=== PATIENT | female | born 1985 | race Caucasian/White ===

== ENCOUNTER → 2018-10-10 18:53 | Outpatient (CLI) | payer MEDICARE, MEDICAID, SELFPAY ==
[2016-12-23 06:13] VITALS: BMI 31.2
[2018-10-10 19:29] LABS: Vitamin D,25 Hydroxy 24.4 ng/mL (29.95-100.01)
--- OUTSIDE RECORDS SUMMARY | 2018-12-06 10:03 | XMS RPT_ITS ---
:1985 Author Organization OHIP Care Team Providers Name Role Phone AL-ALI, FIRAS Admitting Unavailable AL-ALI, FIRAS Attending Unavailable Tomas Ricketts Attending Unavailable Surya Loco Primary Care Unavailable Tomas Ricketts Referring Unavailable DR ARTURO SALOMON Admitting Unavailable AIME, DR ARTURO Borjas Attending Unavailable SURYA LOCO Referring Unavailable DR ARTURO SALOMON Primary Care Unavailable SURYA LOCO Consulting Unavailable PROVIDER, UNKNOWN Consulting Unavailable PROVIDER, UNKNOWN Consulting Unavailable PROVIDER, UNKNOWN Consulting Unavailable ELIZABETH ATKINS SUMMER Admitting Unavailable ELIZABETH ATKINS SUMMER Attending Unavailable ELIZABETH ATKINS Primary Care Unavailable SURYA LOCO Consulting Unavailable PROVIDER, UNKNOWN Consulting Unavailable PROVIDER, UNKNOWN Consulting Unavailable PROVIDER, UNKNOWN Consulting Unavailable AL-ALI, FIRAS Admitting Unavailable AL-ALI, FIRAS Attending Unavailable SURYA LOCO Primary Care Unavailable PROBLEMS PROBLEMS DATE TYPE CONDITION / CODE ATTENDING STATUS SOURCE 10/11/2018 Unknown E55.9 - Vitamin D Jamarcus Active [place] deficiency, [facility] unspecified / Hospital E55.9(ICD-10) Repository 11/16/2017 Active Cerebral AL-ALI, FIRAS Active [facility] aneurysm, Other [place] nonruptured / Repository I67.1(ICD-10) 11/16/2017 Admitting Unknown / AL-ALI, FIRAS Active [facility] diagnosis UNK(Unknown) Health System Repository PROCEDURES PROCEDURES No Procedure Records FoundRESULTS RESULTS VITAMIN D,25 HYDROXY Collected: 10/10/2018 Status: F Source: [facility] 5:00 PM [facility] REPOSITORY TYPE CODE TESTS RESULT OUT OF REFERENCE UNITS RANGE LAB L506.1000 29.95-100.01 ng/mL Low Vitamin D 24.4 25-OH Result Comment: Vitamin D 25(OH) Status Range Deficiency <20 ng/mL (50nmol/L) Insuffciency 20 - 30 ng/mL (50 - 75 nmol/L) Sufficiency 30 - 100 ng/mL (75 - 250 nmol/L) Toxicity >100 ng/mL (>250 nmol/L) Performed By: #### L506.1000 #### [facility] [address] [place], [address] US PELVIC Observed: 10/06/2018 Status: F Source: [facility] 2:37 PM [place] [address] Patient: KIRA CRISOSTOMO Phone#: : 1985 Age: 33 Gender: F Pt. Type: Out Account: [id number] Location: [facility] Ordering: TOMAS RICKETTS Exam Date: 10/06/2018/13:59 Family Phys: SURYA LOCO Charge Code: 048024 Physician: Horry Order #: [id number] DLP Dose#: PROCEDURE: PELVIC ULTRASOUND, TRANSABDOMINAL ENDOVAGINAL COMPARISON: None. INDICATIONS: Pelvic Pain TECHNIQUE: Pelvic ultrasound using transabdominal and endovaginal technique. FINDINGS: UTERUS: Size is 6.1 x 2.1 x 3.7 cm with unremarkable appearance. Endometrial echogenic foci are consistent with intrauterine device. ADNEXAE: Normal bilateral appearance with no significant masses. Right ovary is 1.8 x 1.2 x 1.0 cm. Left ovary is 2.3 x 1.2 x 2.0 cm. CUL-DE-SAC: Normal. No fluid or mass. OTHER: Negative. CONCLUSION: 1. Intrauterine device is identified in the endometrial canal. 2. No other acute pelvic abnormality is identified. Dictated by: Carol Li MD on 10/06/2018 at 14:58 Approved by: Carol Li MD on 10/06/2018 at 14:58 US PELVIC ENDO Observed: 10/06/2018 Status: F Source: [facility] 2:37 PM [place] [address] Patient: KIRA CRISOSTOMO Phone#: : 1985 Age: 33 Gender: F Pt. Type: Out Account: [id number] Location: [facility] Ordering: TOMAS RICKETTS Exam Date: 10/06/2018/13:59 Family Phys: SURYA LOCO Charge Code: 116220 Physician: Horry Order #: [id number] DLP Dose#: PROCEDURE: PELVIC ULTRASOUND, TRANSABDOMINAL ENDOVAGINAL COMPARISON: None. INDICATIONS: Pelvic Pain TECHNIQUE: Pelvic ultrasound using transabdominal and endovaginal technique. FINDINGS: UTERUS: Size is 6.1 x 2.1 x 3.7 cm with unremarkable appearance. Endometrial echogenic foci are consistent with intrauterine device. ADNEXAE: Normal bilateral appearance with no significant masses. Right ovary is 1.8 x 1.2 x 1.0 cm. Left ovary is 2.3 x 1.2 x 2.0 cm. CUL-DE-SAC: Normal. No fluid or mass. OTHER: Negative. CONCLUSION: 1. Intrauterine device is identified in the endometrial canal. 2. No other acute pelvic abnormality is identified. Dictated by: Carol Li MD on 10/06/2018 at 14:58 Approved by: Carol Li MD on 10/06/2018 at 14:58 EMERGENCY REPORT Observed: 02/16/2018 Status: F Source: [facility] 7:08 AM [facility] EMERGENCY ROOM REPORT NAME ACCOUNT SEX AGE ADMIT DISCHARGE PT MED. RECORD# NUMBER DATE DATE TYPE ROBSON [id number] Ayana 32 02/05/18 02/05/18 3 KIRA Torres [address] ROOM: ER DATE OF : 1985 DICTATING PHYSICIAN: Arturo Salomon CHIEF COMPLAINT: Flu-like symptoms. HISTORY OF PRESENT ILLNESS: The patient presents with several complaints. She states that she has not felt well for three days. It started out with a sore throat which has gotten gradually worse. She has had some fever with this and has developed a gradually increasing headache, general aching. She has had an episode of vomiting and nausea that seems worse today. No chest pain. The cough is mostly nonproductive. She is not having significant shortness of breath. She states that it is difficult to swallow, eat and drink because of the throat pain. PAST MEDICAL HISTORY: Negative for chronic problems. PAST SURGICAL HISTORY: She has had previous cholecystectomy. MEDICATIONS: She takes no medications regularly. ALLERGIES: She is allergic to Latex and oxycodone. SOCIAL HISTORY: She lives at home. She does not smoke or drink alcohol. PHYSICAL EXAMINATION: This is a 32-year-old female who is alert and appropriate. She does not appear toxic. Her skin is pink, warm and dry. She does not appear in any acute distress. Pupils are equally round and reactive to light. Extraocular muscles are intact. TMs are normal. Nose is normal. Mouth and throat appear normal without any significant redness or exudate. Neck is supple. Minimal anterior cervical tenderness, but no appreciable adenopathy. No meningeal signs. Lungs are clear. No crackles or wheezes. Cardiac exam shows regular, slightly tachycardiac rate without ectopy or murmurs. Abdomen is soft and nontender. She moves extremities appropriately. Good peripheral pulses. Good capillary refill. VITAL SIGNS: Temperature 98.6, pulse 120, respirations 20, blood pressure 129/102. O2 saturation was 97%. DIAGNOSTIC DATA: I did get a Rapid Strep and Influenza swabs. These were both negative. EMERGENCY DEPARTMENT COURSE AND TREATMENT: I did give her a Page 1 of 2 KIRA CRISOSTOMO Emergency Room Report prescription for Zofran and a three day course of Prednisone. DIAGNOSIS: Influenza-like illness, probable viral etiology. PLAN/DISPOSITION: She is to follow up with her family doctor in 2 to 4 days if not better. Return if symptoms worsen. D: Arturo Salomon MD TD: 02/05/18 12:31 JOB #: [id number] Transcribed by: alvaro Electronically signed by: YESENIA Salomon M.D. 02/16/18 07:08 Page 2 of 2 KIRA CRISOSTOMO Emergency Room Report Observed: 02/05/2018 Status: F Source: [facility] INFLUENZA VIRUS RAPID 7:37 AM [facility] A/B REPOSITORY INFLUENZA A NEGATIVE INFLUENZA B NEGATIVE INTERNAL NEG QC PASS INTERNAL POS QC PASS EXTERNAL QC DONE? YES A NEGATIVE TEST RESULT DOES NOT EXCLUDE INFECTION WITH INFLUENZA A OR B. THEREFORE, THE RESULTS OBTAINED FROM THIS FLU TEST SHOULD BE USED IN CONJUCTION WITH CLINICAL FINDINGS TO MAKE AN ACCURATE DIAGNOSIS. INDIVIDUALS WHO HAVE RECEIVED NASALLY ADMINISTERED INFLUENZA A VACCINE MAY TEST POSITIVE IN COMMERCIALLY AVAILABLE INFLUENZA RAPID DIAGNOSTIC TESTS FOR UP TO THREE DAYS. Performed By: #### [id number] #### [facility],[address] [place] [address] Observed: 02/05/2018 Status: F Source: [facility] RAPID STREP 7:37 [facility] REPOSITORY Rapid Strep NEG:GRP A STREP INTERNAL QC PASS EXTERNAL QC DONE? YES Performed By: #### [id number] #### [place] [address] Observed: 02/05/2018 Status: F Source: [facility] CULT STREP REFLEX 7:37 [facility] ONLY REPOSITORY CULT STREP REFLEX ONLY _REFLEX STREP SCREEN CULTURE ONLY_ M I C R O B I O L O G Y R E P O R T FINAL Antimicrobial Susceptibility and Organism Identification Report Specimen Number : [id number] Requested : 02/05/18 Specimen Source : THROAT Collected : 02/05/18 07:37 [place] [facility] : Emergency Room Received : 02/05/18 07:37 Requesting Physician : DEDRA AVALOS Patient/Specimen Tests and Comments Specimen Comments FINAL REPORT: Negative for Group A Beta Strep Tech : Source : THROAT ID # : [id number] FINAL Report Date : / / : Collected : 02/05/18 07:37 02/06/18.1130.BKO. 02/06/18.1130.BKO.COMPLETE Performed By: #### [id number] #### [facility],[address] [place] [address] NURSING PROG Observed: 11/16/2017 Status: COMPLETED Source: [place] 2:34 PM [facility] REPOSITORY HNO ID: [id number] Author: Kelsey (Rn) CHRISTIANE Ahumada Service: Neurosurgery Author Type: Registered Nurse Type: Nursing Progress Note Filed: 11/24/2017 8:57 AM Note Text: Attempted to call patient post-procedure, no answer, message left on voicemail BRIEF OP NOT Observed: 11/16/2017 Status: COMPLETED Source: [place] 11:52 AM [facility] REPOSITORY HNO ID: [id number] Author: Jenni Cardoza Service: Neurosurgery Author Type: Physician Type: Brief Op Note Filed: 11/16/2017 11:54 AM Note Text: BRIEF OPERATIVE / PROCEDURE NOTE LOG ID: [id number] Surgery/Procedure Date: 11/16/2017 Incision/Procedure Start Time: Incision Close/Procedure End Time: Surgeon(s)/Proceduralist(s) and Associate Chemist(s): Surgeon(s) and Role: * Jenni Cardoza - Primary No Additional Staff Procedure(s): DCA Anesthesia: Procedural Sedation Findings: persistent perfect coiling if the 3 intra cranial aneurysms Estimated Blood Loss: 5 mls Specimens: None Complications: None Pre-Op/Pre-Procedure Diagnosis: prior coiling of 3 intra cranial aneurysms Post-Op/Post-Procedure Diagnosis: persistent perfect coiling if the 3 intra cranial aneurysms SIGNATURE: Jenni Cardoza MD PATIENT NAME: Kira Crisostomo DATE: November 16, 2017 TIME: 11:53 AM PAGER/CONTACT #: HALEY PREOP Observed: 11/16/2017 Status: COMPLETED Source: [place] 11:24 AM [facility] OTHER CAMPUS REPOSITORY O ID: [id number] Author: Jenni Cardoza Service: Neurosurgery Author Type: Physician Type: Anesthesia PreOp Filed: 11/16/2017 11:25 AM Note Text: PROCEDURAL SEDATION HISTORY AND PHYSICAL EXAM SERVICE DATE: 11/16/2017 SERVICE TIME:11:24 AM SUBJECTIVE HPI: This is a 32 year old female who presents with 6 month S/p recoiling of the Rt Pcom aneurysm . 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 11/15/2017 at Unknown time Yes biotin 5 mg caspule Take 5 mg by mouth once daily. 11/15/2017 at Unknown time Yes CALCIUM CARBONATE (CALCIUM 600 ORAL) Take 1 tablet by mouth once daily. 11/15/2017 at Unknown time Yes KRILL/OM-3/DHA/EPA/PHOSPHO/AST (MEGARED OMEGA-3 KRILL OIL ORAL) Take 350 mg by mouth once daily. 11/15/2017 at Unknown time Yes coenzyme Q10 (CO Q-10) 100 mg cap capsule Take 100 mg by mouth once daily. 11/15/2017 at Unknown time Yes aspirin 81 mg chewable tablet Take 81 mg by mouth once daily. 11/15/2017 at Unknown time Yes L. ACIDOPHILUS/BIFIDO LONGUM (PROBIOTIC PEARLS ORAL) Take 5 Billion CFU by mouth once daily. 11/15/2017 at Unknown time Yes sertraline (ZOLOFT) 50 mg tablet Take 50 mg by mouth once daily. 11/15/2017 at Unknown time Yes losartan (COZAAR) 50 mg tablet Take 50 mg by mouth once daily. 11/15/2017 at Unknown time Yes sucralfate (CARAFATE) 1 gram tablet Take 1 g by mouth three times daily before meals. Unknown at Unknown time Yes docusate sodium (COLACE) 100 mg capsule Take 100 mg by mouth twice daily as needed. Past Week at Unknown time Yes melatonin 10 mg tab Take 10 mg by mouth daily at bedtime. 11/15/2017 at Unknown time Yes Carica Papaya (PAPAYA ENZYME) chew Take 1 tablet by mouth three times daily with meals. 11/15/2017 Yes PHOSPHORATED CARBO,DEXT-FRUCT, (NAUSEA RELIEF MEDICINE ORAL) Take 2 tablets by mouth three times daily as needed (nausea). 11/15/2017 Yes ibuprofen (MOTRIN) 200 mg tablet Take 400 mg by mouth every 6 hours as needed for Pain. 11/15/2017 at Unknown time Yes Unuumdr-Ufkabbqqjfiul-Olhyygws (EXCEDRIN) 250-250-65 mg per tablet Take 2 tablets by mouth every 6 hours as needed. Past Week Yes omeprazole (PRILOSEC) 20 mg capsule Take 20 mg by mouth twice daily. 11/16/2017 at 0600 Yes ALLERGIES Allergen Reactions - Dicyclomine Unknown - Latex Unknown - Oxycodone Unknown OBJECTIVE PHYSICAL EXAM: The remainder of the physical exam is noncontributory. AIRWAY: LUNGS: Lungs clear to auscultation, Good diaphragmatic excursion CARDIAC: Normal S1 and S2; no rubs, murmurs, or gallops ASSESSMENT/PLAN ASA Class: Active Problems: * No active hospital problems. * Provisional Diagnosis/Treatment Plan: 6 month S/p recoiling of the Rt Pcom aneurysm . And Rt Opthalmic aneurysm SIGNATURE: Jenni Cardoza MD PATIENT NAME: Kira Crisostomo DATE: November 16, 2017 TIME: 11:24 AM PAGER: [phone] HCG, QUAL. SERUM Collected: 11/16/2017 Status: F Source: [facility] 9:00 AM HEALTH SYSTEM REPOSITORY TYPE CODE TESTS RESULT OUT OF REFERENCE UNITS RANGE LAB SEHCG(LOINC Negative ) HCG, Negative Qual. Serum Performed By: #### SEHCG #### [place] [address] NURSING PROG Observed: 11/16/2017 Status: COMPLETED Source: [place] 8:08 AM [facility] REPOSITORY HNO ID: [id number] Author: Maricruz (Rn) CHRISTIANE Ye Service: Nursing Author Type: Registered Nurse Type: Nursing Progress Note Filed: 11/16/2017 9:18 AM Note Text: Nursing Progress Note Patient Name: Kira Crisostomo Patient Location: [facility] 0808 - Patient arrived to [place] [address] accompanied by mother, Bonnie Padilla. Patient oriented to room, procedure explained, and sedation teaching initiated. Patient verbalizes understanding. 0900 - #22 IV started in Left AC, labs collected and sent. This note was completed by: Maricruz Ye RN OPERATIVE NO Observed: 11/16/2017 Status: COMPLETED Source: [place] 12:00 AM [facility] REPOSITORY HNO ID: [id number] Author: Jenni Cardoza Service: Neurosurgery Author Type: Physician Type: Operative Report Filed: 11/21/2017 11:43 AM Note Text: [facility] - Operative Report SURGEON: Jenni Cardoza MD PATIENT NAME: KIRA CRISOSTOMO [facility]: [id number] DATE OF SURGERY: 11/16/2017 DATE OF : 1985 SEX/AGE: F/32 PATIENT TYPE: A HOSP SVC: NEU LOCATION: [facility] DATE OF SURGERY: 11/16/2017 SURGEON: Jenni Cardoza MD PREOPERATIVE DIAGNOSES: 1. 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 2. Six months status post coiling, right ophthalmic artery aneurysm. 3. 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 POSTOPERATIVE DIAGNOSIS: Persistent perfect coiling of the 3 intracranial aneurysms. CONSENT: Consent form obtained from the patient. COMPLICATION: None. ESTIMATED BLOOD LOSS: Less than 5 mL. ANESTHESIA: Conscious sedation provided by operating physician. The patient time on table is 10:45 a.m. The patient off the table is 11:45 p.m. The patient required 1 hour of conscious sedation provided by the operating physician. VESSELS CATHETERIZED: 1. Left vertebral artery. 2. Right internal carotid artery. VESSELS IMAGED: 1. Frontal and lateral posterior fossa angiogram through left vertebral artery injection. 2. Frontal and lateral full cerebral angiogram through right internal carotid artery injection. INDICATION FOR PROCEDURE: This is a 32-year-old female, who presented 2 years ago with diffuse subarachnoid hemorrhage. 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 She underwent successful coiling of these 2 aneurysms. The patient did remarkably well. Followup cerebral angiography, however, demonstrated interval recurrence of the right PCOM, posterior communicating artery aneurysm, and stable small right ophthalmic artery aneurysm. She underwent successful coiling of this aneurysm and the coiling of the right posterior communicating artery aneurysm six months ago. This procedure is a followup on these 3 intracranial aneurysm to rule out the possibility of compaction interval aneurysm recurrence. FINDING: significant impact and the recommendation was given to the patient and treatment options. PROCEDURE IN DETAIL: The patient was positioned directly in supine position. Both groins were prepped and draped in sterile fashion. After giving the patient 10 mL of 2% lidocaine in the right groin, access to the right common femoral artery was obtained using micropuncture system. After serial dilatation, a 6- Kuwaiti short sheath was advanced with its tip in the right external iliac artery. The sheath was hooked up and heparinized saline flushed through the sheath. A 5- Kuwaiti JB1 diagnostic catheter was advanced and replaced in the left vertebral artery. Frontal and lateral posterior fossa angiogram were obtained. Diagnostic catheter was then selectively placed in right internal carotid artery. Full cerebral angiogram were obtained in nonmagnified views. The diagnostic catheter was then removed. The sheath was removed and adequate hemostasis was obtained using StarClose device. There was no evidence of immediate complications. SUPERVISION AND INTERPRETATION: The posterior fossa angiogram through the internal carotid injection demonstrated persistent perfect coiling of the left PICA aneurysm. The full cerebral angiogram through the right internal carotid injection demonstrated persistent perfect coiling of the right posterior communicating artery aneurysm as well as the right ophthalmic artery aneurysm. There was no evidence of other intracranial aneurysm in the right hemisphere. IMPRESSION: Persistent perfect coiling of the 3 intracranial aneurysms. Jenni Cardoza MD Neurology FA:modl /[id number] cc:Surya Loco MD ALLERGIES ALLERGIES DATE TYPE / CODE NAME / CODE REACTION SEVERITY SOURCE 12/07/2016 Drug oxycodone/J27328 Vomiting Unknown [place] Allergy/055212553( 1558([facility]NORM) [facility] Repository 12/07/2016 Drug latex/C011847817 Hives Unknown [place] Allergy/874690474( (RXNORM) [facility]) Hospital Repository 04/02/2016 DRUG DICYCLOMINE UNKNOWN [place] IN[facility]EDI/126206228( Clinic Other SNOMED CT) [place] Repository 04/02/2016 DRUG LATEX UNKNOWN [place] [facility]I/404485653( Clinic Other SNOMED CT) [place] Repository 04/02/2016 DRUG OXYCODONE UNKNOWN [place] [facility]I/611633714( Clinic Other SNOMED CT) [place] Repository Drug OXYCODONE/486356 Moderate Faheem Pomerene Allergy/637192091( 41(RXNORM) ([facility] SNOMED CT) Modifier) [facility] (Qualifier Repository Value) Environmental LATEX Moderate Faheem Pomerene Allergy/707303002( (Severity [facility] SNOMED CT) Modifier) [facility] (Qualifier Repository Value) NG/943851477(SNOME DICYCLOMINE [facility] D CT) Health System Repository NG/376504303(SNOME LATEX [facility] D CT) Health System Repository NG/916581917(SNOME OXYCODONE [facility] D CT) Health System Repository ENCOUNTERS ENCOUNTERS ADMIT/DISCHARGE ACCOUNT NUMBER ADMITTING ENCOUNTER LOCATION SOURCE CLASS 10/10/2018 [id number] [facility] ding:LABSPEC Repository 10/06/2018/10/06/20 [id number] ELIZABETH ATKINS Ambulatory Fahe[place] Pomerene 18 [facility] Repository 02/05/2018/02/06/[id number] ARTURO SALOMON Emergency Buildin [facility] 18 C Room: ERBed: [facility] Repository 11/16/2017/11/16/19 [id number] SONAL, JENNI Ambulatory [address] Other [place] Repository 11/16/2017/11/16/19 [id number] SONAL, JENNI Inpatient [place] [address] Encounter [facility] MEDICAL Repository CENTERBuildi ng:CCLERoom: POOLBed: 09 PAYERS PAYERS ENCOUNTER GUARANTOR PAYER SUBSCRIBER SOURCE 10/10/2018 KIRA HELLERPO Primary KIRA Elizabeth [address] [place] [address], Insurance:MEDICARE HELLERDOB[facility]Jgd: PART A BPolicy Number: [id number] Hospital [id number] Repository () Date:2018-10-10 10/10/2018 Secondary KIRA Elizabeth Insurance:MEDICAIDPoli HELLERDOB: [facility] cy Number: [id number] Hospital [id number] Repository Date:2018-10-10 10/10/2018 Tertiary NOT GIVENUNK [place] Insurance:SELF PAY [facility] Number: Effective Repository Date:2018-10-10 10/06/2018 KIRA L Primary Insurance:500 KIRA L Faheem Pomerene HELLERDOB: MEDICARE HELLERDOB: [id number] [id number] Hospital [address] [place] [address], Number: [facility] [place], [place] [address]Zvd: [id number] Date:Plan Name: () 10/06/2018 Secondary KIRA L Faheem Pomerene Insurance:100 MEDICAID HELLERDOB: [facility] [id number] Hospital Number: 8 [address] Repository [id number] [address] [place] [address], Date: [place] [id number] 02/05/2018 KIRA L Primary Insurance:500 KIRA L Faheem Pomerene HELLERDOB: MEDICARE HELLERDOB: [facility] [id number] [id number] Hospital [address] [place] [address], Number: [address] [place]ository [place] [address]Joy: [id number] [address] [place] [address], Date:Plan Name:[facility] [id number] () 02/05/2018 Secondary KIRA L Faheem Vizcarra Insurance:100 MEDICAID HELLERDOB: [facility] [id number] Hospital Number: [address] Repository [id number] [address] [place] [address], Date:Plan Name:[facility] [id number] 11/16/2017 KIRA L Primary KIRA L [facility] Insurance:MEDICARE A [facility]: [facility] [id number] [facility]: [id number] [facility] [id number] [place], [place] Date: [address]Qiq: () 11/16/2017 Secondary KIRA L [facility] MEDICAIDPolicy Number: [id number] Repository [id number] Date:
== END ==
PROVIDERS: Family Provider Family Medicine; PCP Family Medicine; Referring Provider Obstetrics & Gynecology; Visit Provider Obstetrics & Gynecology
DX: E55.9 Vitamin D deficiency, unspecified (principal)
CPT/HCPCS: 82306

== ENCOUNTER → 2019-01-01 15:49 | Outpatient (CLI) | payer MEDICARE, MEDICAID, SELFPAY ==
[2016-12-23 06:13] VITALS: BMI 31.2
--- NOTE | 2019-01-01 15:58 | BI_ITS ---
MAMMOGRAPHY - BILATERAL SCREENING REASON FOR EXAM: Female, 33 years old. Routine annual screening examination. PERTINENT HISTORY: Grandmother with breast cancer. TECHNIQUE: Digital bilateral breast murray (3D mammographic acquisition) in the CC and MLO projections. 2-D mediolateral oblique (MLO) and craniocaudad (CC) views of both breasts were obtained. CAD: Full Field Digital Mammography with Computer Added Detection was performed. COMPARISON: None. Baseline examination. FINDINGS: Breast Composition: There are scattered areas of fibroglandular density. There are no dominant masses or suspicious calcifications. No other significant abnormalities are identified. BI/SCREENING MAMM (CAD), BILAT IMPRESSION: Negative screening mammogram. Yearly followup mammogram recommended. (A) ASSESSMENT CATEGORY: BIRADS Category 1: Negative. A letter regarding these results will be sent to the patient by the facility within 30 days. Approximately 10% of breast cancers are not detected by mammography. A normal mammogram should not delay biopsy of a clinically suspicious abnormality. [id number] Electronically Signed: Francisco Cedeno MD at 8:27 EST , Service support ,
== END ==
PROVIDERS: Family Provider Family Medicine; PCP Family Medicine; Visit Provider Obstetrics & Gynecology
DX: Z12.31 Encounter for screening mammogram for malignant neoplasm of breast (principal)
CPT/HCPCS: 77063; 77067

== ENCOUNTER → 2019-03-05 | Outpatient (CLI) | payer MEDICARE, MEDICAID, SELFPAY ==
[2019-03-05 14:16] LABS: Vitamin D,25 Hydroxy 40.8 ng/mL (29.95-100.01)
== END | disposition home or self-care (01) ==
LOC: WOBLAB 13:15
PROVIDERS: Visit Provider Obstetrics & Gynecology
DX: E55.9 Vitamin D deficiency, unspecified (principal)
CPT/HCPCS: 36415; 82306

== ENCOUNTER 2019-09-03 05:18 | Day surgery (SDC) | payer MEDICARE, MEDICAID, SELFPAY ==
[2019-08-29 14:49] VITALS: BP 118/73; PULSE 87; RESP 16; TEMP 36.5; O2SAT 100; BMI 32.5
--- NOTE | 2019-08-29 15:20 | SDCEKG_ITS ---
Test Reason : Blood Pressure : / mmHG Vent. Rate : 078 BPM Atrial Rate : 078 BPM P-R Int : 150 ms QRS Dur : 082 ms QT Int : 396 ms P-R-T Axes : 061 045 036 degrees QTc Int : 451 ms Normal sinus rhythm with sinus arrhythmia Possible Left atrial enlargement Borderline ECG Confirmed by GERI VELEZ, ZEKE ([id number]), editorial assistant ELIZABETH VICK ([id number]) on 09/04/2019 11:30:57 AM Referred By: Xander Sommer Confirmed By:ZEKE NEVAREZ MD
[2019-08-29 16:25] LABS: Hematocrit 38.5 % (37-47); Hemoglobin 12.6 g/dL (12.0-15.0); Mean Corp Hgb Conc 32.7 g/dL (32-36); Mean Corpuscular Hgb 29.4 pg (27.0-32.0); Mean Platelet Vol. 10.3 fl (6.2-12.0); Platelet Count 376 K/mm3 (150-450); RBC Distribution Width CV 12.8 % (11.6-14.6); Red Blood Count 4.28 M/mm3 (4.2-5.4); White Blood Count 8.3 K/mm3 (4.4-11.0)
[2019-08-29 16:41] LABS: International Normalized Ratio 1.1; Prothrombin Time (Protime)PT. 14.1 SECONDS (11.7-14.9)
[2019-08-29 16:42] LABS: Partial Thromboplast Time 29.8 Seconds (24.1-36.2)
[2019-08-29 16:55] LABS: Anion Gap 9 (5-15); BUN 12 mg/dL (7-18); BUN/Creat Ratio 13.8 RATIO (10-20); Calcium,Total 9.2 mg/dL (8.5-10.1); Chloride 106 mmol/L (98-107); Creatinine, Serum 0.87 mg/dL (0.55-1.02); EST Glomerular Filtration Rate 79 mL/min (>60); Est Glom Filt Rate - Afr Amer 95 mL/min (>60); Estimated Creatinine Clearance 77.94 ml/min; Glucose 78 mg/dL (74-106); Sodium Level 138 mmol/L (136-145)
--- NOTE | 2019-09-02 18:15 | HP.PCM_ITS ---
History and Physical Date of Admission: 09/03/19 Surgical History and Physical Debbi Crisostomo, a 34 year old female 0 0 0 0 0, presents for RAVH/BS on September 03, 2019 at 8:30. -- Dysmenorrhea and Pelvic Pain -- Dysmenorrhea for many years. Has been on DepoProvera x3 doses in 2016 per PCP with some relief of pain but with increased mood swings. Known HTN, GI issues, arthritis, depression and CVA/aneurysm of brain in 2013. Latex allergy noted. S/P dx laparoscopy, lysis of adhesions, Mirena placement 12/23/16. She notes that has menstrual like cramps and low back pain that persists however, this reminds of her period related pain. She previously was on Depo Provera, but noted mood sx. Medical clearance from Dr. Geri Loco for surgery. Headaches, abd. pain, cramping, bloating with BC which began on going. Debbi claims it started gradual and has been present on going. It occurs daily. Debbi characterizes it to be to the back. Debbi characterizes the quality cramping. Associated signs and symptoms are patient has had sharp vaginal pain, headaches, mood swings. Additional comments are: patient states several concerns with Mirena and Depo. MEDICATIONS HISTORY: Patient is also takin. omeprazole 20 mg capsule,delayed release, One pill by mouth twice a day 2. sucralfate 1 gram tablet, One pill by mouth three times a day 3. escitalopram 20 mg tablet 4. Bactrim DS 800 mg-160 mg tablet, As Directed 5. losartan 50 mg tablet, daily ALLERGIES: Latex, Hives and/or rash, Oxycodone and Severe nausea & vomiting Infections - none Illnesses - HTN, diverticulitis, arthritis, depression, CVA and aneurysm Accidents - no injuries of consequence Hospitalizations - see surgery eczema; Review of Systems: GENERAL - Denies fever, or chills SKIN - Denies skin changes EYES - Denies visual changes EARS - Denies difficulty hearing NOSE - Denies nasal congestion or bleeding MOUTH - Denies sore throat or difficulty swallowing NECK - Denies pain or swelling RESPIRATORY - Denies shortness of breath or wheezing CARDIOVASCULAR - Denies palpitations or chest pain GASTROINTESTINAL - Denies nausea, vomiting, diarrhea, constipation GENITOURINARY - Denies dysuria, frequency of urination, incontinence of urine MUSCULOSKELETAL - Denies joint or muscle pain NEUROLOGICAL - Denies localized numbness or weakness PSYCHIATRIC - Denies depression or anxiety ENDOCRINE - Denies heat or cold intolerance, weight loss or gain HEMATO-IMMUNOLOGIC - Denies excessive bleeding with cuts SOCIAL HISTORY: Alcohol Use - denies drinking Smoking - denies smoking Diet - no special diet Lifestyle - moderate stress lifestyle and getting 08-04-19 Exercise - none Seat Belt Use - occasional Employer - disability, SSI 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 06/13/2019 Cerebral Angiography 2. 12/23/2016 Laparoscopy, lysis of adhesions, Mirena IUD placement exam under anesthesia ; Trinidad Fuentes MD 3. Appendectomy and cholecystectomy, 2009 4. Brain aneurysm repair PHYSICAL EXAM BP- 110/76 Sitting, Right arm, regular cuff Temp- 98.1 Taken Orally Weight- 189.56569 lbs Height- 64.50 inch BMI:32.11 CONSTITUTIONAL - NAD, well nourished, and well developed SKIN - No rash, lesions, or ulcers HEENT - normocephalic, atraumatic, sclerae anicteric NECK - No nodes, no nuchal rigidity and thyroid normal size and texture LUNGS - CTA x2 without wheezes, crackles or rales CARDIAC - Regular rate and rhythm without rubs, murmurs, or gallops BREAST - No dominant masses, no tenderness, no axillary adenopathy, no nipple discharge, no skin changes ABDOMEN - Without hepatosplenomegaly, distention, masses, rebound, or guarding; normal bowel sounds; no hernias; + LUQ, LLQ abdominal tenderness without rebound or guarding. EXTREMITIES - No edema or calf tenderness NEUROLOGICAL - normal gait, normal balance, normal motor PSYCHIATRIC - A and O to time, place, person, mood and affect External Genital Vagina - non-tender without lesions Urethra/Urethral Meatus - non-tender Bladder - non-tender Vagina - vaginal hilario are pink and moist without loss of rugae and no evidence of atropy Cervix - without cervical motion tenderness and has normal size and features without evident lesions Uterus - 5-6 cm in size, mobile and nontender Adnexa - clear without massess or tenderness ASSESSMENT/PLAN: 1. 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 Discussed hysterectomy for treatment of adenomyosis - reviewed surgical risks including but not limited to bleeding, infection, VTE, bowel or bladder injury, ureteral injury, cuff dehiscence/evisceration, scarring, neuropathy with foot drop or other difficulty. Pt not candidate for TVH, LAVH - offered KENNETH vs robotic TLH as alternative. Pt opts for RAVH/BS. Discussed RBAs, possible need for laparotomy, surgical recovery, anticipated hospitalization and restrictions and that HRT would be necessary if both ovaries need to be removed. All questions answered.
[2019-09-03] VITALS (22 sets, daily range): BP systolic 71–121; BP diastolic 35–72; PULSE 66–105; RESP 12–20; TEMP 36.1–37.1; O2SAT 92–100; BMI 32.5; BMI 32.6
[2019-09-03 06:04] LABS: Internal QC Validated? YES +Cl - CLEAR BKGD; Pregnancy, Urine Negative Negative
[2019-09-03] MEDS: Lactated Ringers 1,000 ML 100 ML IV ×4 (06:48→11:35)
--- NOTE | 2019-09-03 07:30 | HYST_PTH ---
PATIENT: KIRA REECE LOC: [facility] U#:[id number] AGE/SX: 34/F ROOM: RE09/03/[address]: Dr. Xander Sommer MD : [id number] BED: DIS: 09/04/2019 SPEC #: [id number] RECD: 09/03/19 11:00 STATUS: AMANDA DAMICONataliia #: [id number] ANGELIA: 09/03/19 07:[address]: Xander Sommer DEPT: SURGICAL PATHOLOGY RECD BY: Abimael Yu ENTERED: 09/03/19 11:27 SP TYPE: HYSTERECT OTHR DR: Dr. Raman Loco MD Tissues: Uterus, NOS Procedures: Surgery Specimen Level V HEADER OPERATION: Lap robotic hysterectomy PRE-OP DIAGNOSIS: Pelvic and perineal pain and primary dysmenorrhea TISSUE SUBMITTED: Uterus and bilateral fallopian tubes MICROSCOPIC DIAGNOSIS Uterus and bilateral fallopian tubes, hysterectomy and bilateral salpingectomy: Cervix - mild chronic cystic cervicitis. Endometrium - inactive endometrium with focal cystic changes. Myometrium - intramural and subserosal leiomyomas (largest measuring 1.5 cm in greatest dimension. Bilateral fallopian tubes - no pathologic diagnosis. SJ:humza 09/04/19 MICROSCOPIC DESCRIPTION Slides are reviewed. GROSS DESCRIPTION Received in fixative is one container labeled with the patient's name and designated uterus and bilateral fallopian tubes. The specimen consists of a hysterectomy specimen consisting of a uterus with cervix and attached left fallopian tube and detached right fallopian tube. The uterus with cervix weighs 23 gm and measures 5.5 x 3 x 2 cm. The serosal surface is ku, glistening. The ectocervical mucosa is unremarkable. The external os is oval in contour. The endocervical canal measures 2 cm in length and the endocervical mucosa is ku, glistening and unremarkable. The endometrial cavity measures 2.5 cm in length and 1 cm in width. The endometrium is ku, glistening without any mass lesion and measures <0.1 cm in thickness. Sections of the uterine wall reveal a ku, nodular mass measuring 0.5 cm in diameter. Sections of this mass reveals ku whorled cut surfaces without areas of hemorrhage, necrosis or cystic degeneration. The uterine wall measures up to 1 cm in thickness. A nodule is noted at the right cornua measuring 1.5 x 1 x 0.7 cm. Sections reveal ku cut surfaces. The detached right fallopian tube measures 6.5 cm in length and 0.3 cm in diameter. The fimbrial end is identified. Sections reveal pinpoint lumen and no mass lesion. The left fallopian tube is similar appearance to right and measures 5.5 cm in length and 2.5 cm in diameter. Sales Expert Home [employer] sections are submitted in nine cassettes as follows: 1 - anterior cervix, 2??posterior cervix, 3 & 4 - anterior uterine wall, 5 & 6 - posterior uterine wall (6 also contains the intramural nodular mass), 7 - nodular mass at the right cornua, 8 - right fallopian tube, 9 - left fallopian tube. / ALEXA:humza 09/03/19 TC:1 CPT: 63736
[2019-09-03] MEDS: Ropivacaine 0.5% 30 ML Vial (08:03)
--- NOTE | 2019-09-03 09:16 | OP.PCM_ITS ---
Report of Operation Date of Procedure: 09/03/19 Pre-Operative Diagnosis: Dysmenorrhea and Pelvic Pain Post-Operative Diagnosis: Dysmenorrhea and Pelvic Pain Surgery/Procedure Performed:: Robotic Assisted Vaginal Hysterectomy and Bilateral Salpingectomy Description of Surgical Findings:: 5 cm uterus with normal-appearing fallopian tubes and ovaries. 2 cm right fundal pedunculated fibroid. 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 enrollment management coordinator: Roby Parada Type of Anesthesia:: General - Endotracheal Anesthesiologist: Aiyana Johnson Specimen's removed: Uterus and bilateral fallopian tubes Drains: Turner to straight drain Estimated Blood Loss (mL): Minimal Fluids Replaced: Crystalloid Description of Procedure: Surgeon: Xander Sommer MD, FACOG Indication: This is a 34 year old patient who has been having problems with pelvic pain and dysmenorrhea. Multiple conservative measures have not been helpful. The patient has been counseled regarding the risks, benefits and alternatives of this procedure including the possibility of bleeding, infection, and injury to surrounding structures such as bowel bladder and all questions were answered. She understands that if BSO is needed that she will need to be on HRT for an indefinite period of time. Procedure: Pt taken to the operating room where, after induction of general anesthesia, the patient was prepped and draped in the usual sterile fashion and placed on a non-slip Huggy-u-vac device. Trendelenburg test was satisfactory. Bladder was drained of urine with a Turner catheter which was left in place. Ant erior cervix grasped and cervix was dilated to about 3-4 mm. Uterus sounded to 5-6 cms. 0-Vicryl suture was placed at the 3:00 and 9:00 position of the cervix. A small Advincula Teacher Citizenship Uterine Manipulator was then placed in the uterus and attention was turned to the laparoscopic portion of the procedure. Ropivocaine 0.5% was injected approximately 2-3 cm superior to the umbilicus and an 8 mm robotic camera port was introduced directly with intraperitoneal placement confirmed with CO2 insufflation. 8 mm robotic side ports were introduced under direct visualization approximately 11 cm lateral and 2 cm inferior to the umbilical port. A 5 mm left upper quadrant port was introduced and airseal insufflation with CO2 was started. The above findings were noted. The balloon from the uterine manipulator was noted to be perforated through the fundus of the uterus but in an appropriate position to allow manipulation of the uterus without difficulty. Robot was docked without difficulty and attention turned to the robotic portion of the procedure. Approximately 30 cc of Ropivicaine was used. Bilateral mesosalpinx were ligated with 35 wiseman bipolar coagulation to the level of the round ligament. The posterior aspect of the cervix was identified and then opened for about 1 cm using 25 watt monopolar cautery. Bladder flap was opened and divided to the level of the round ligaments using monopolar cautery. Progressive bites were then ligated on each side of the cervix with 35 wiseman bipolar cautery to the uterine arteries. The anterior vaginal mucosa was entered and cervix circumscribed with monopolar cautery. Uterus and attached tubes were removed through the vagina. Vaginal cuff was closed first with 0- Vicryl Edin stitches placed at each angle followed by closure of the mid-cuff with 0-Monocryl V-lock suture in two layers. Pelvis was copiously irrigated with saline. Robot was undocked and trocars were removed with as much gas as possible. Incisions were closed with 4-0 Monocryl subcuticular sutures and incisions covered with steri-strips. The patient tolerated the procedure well and was taken to the recovery room in satisfactory condition. Sponge, instruments and needle counts were all correct. There were no apparent complications of the surgery. Cefotan 2 gms IV was given prior to the procedure. Estimated Blood Loss: Minimal Specimen to Pathology: Uterus and bilateral fallopian tubes Grafts/Implants Used: None - Complications None - Admit VTE Documentation VTE Present on Admission: Yes VTE Mechan Device Prophylaxis: SCD's VTE Pharm Prophylaxis ordered?: Yes
--- NOTE | 2019-09-03 09:24 | PCM.DC.VHY ---
Discharge Diet: No Restrictions Discharge Activity: Return to Normal Activity, May Not Drive - while taking narcotic pain medications., May Shower, May Take a Tub Bath May resume sexual activity in: 6-8 weeks Call your doctor if your incision/area has: Continuous Slow Oozing, Sudden Increased Bleeding, Increased Pain/ Swelling, Increased Redness, Foul Smelling Discharge Call your doctor if you observe: Fever of 101 or Higher, Inability to urinate, Inability to have a bowel movement, Using more than one pad per hour Allergies/Adverse Reactions: Allergies latex Allergy (Verified 08/29/19 14:39) Hives oxycodone Adverse Reaction (Verified 08/29/19 14:39) Vomiting Medications to take at Discharge Ibuprofen 200 mg PO PRN PRN 12/07/16 Krill/Om-3/Dha/Epa/Phospho/Ast [Krill Oil 1,000 mg Softgel] 1 each PO DAILY 12/07/16 Multivitamins,Therapeutic [Multivitamin] 1 tablet PO DAILY 12/07/16 Omeprazole Magnesium [Prilosec Otc] 20 mg PO BID 12/07/16 Sucralfate [Carafate] 1 gm PO 4X/DAY 12/07/16 Ubidecarenone [Coq10] 50 mg PO DAILY 12/07/16 Escitalopram Oxalate [Lexapro] 20 mg PO DAILY 08/29/19 Losartan Potassium 50 mg PO DAILY 08/29/19 Smz/Tmp Ds [Bactrim Ds] 1 tab PO BID 08/29/19 Cranberry 500 mg PO DAILY 09/03/19 Docusate Sodium [Colace] 100 mg PO BID PRN PRN #60 cap 09/03/19 Hydrocodone/Acetaminophen [Snowflake 5-325 Tablet] 1 ea PO Q6H PRN PRN 7 Days #20 tab 09/03/19 The following prescriptions were given: Docusate Sodium [Colace] 100 mg PO BID PRN PRN #60 cap PRN Reason: Constipation Prescription Printed Hydrocodone/Acetaminophen [Snowflake 5-325 Tablet] 1 ea PO Q6H PRN PRN 7 Days #20 tab PRN Reason: Pain Score 6-10/10 Prescription Printed Primary Care Physician: Raman Loco [Primary Care Provider] - Test Results: Test results from this visit will be discussed in further detail at your follow-up appointment, if applicable. Please Follow Up With: Xander Sommer MD When: 2 to 3 weeks
[2019-09-03 11:35] LABS: Absolute Lymphocyte Count 1.45 X10^3/uL (0.83-4.51); Absolute Neutrophil Count 11.8 X10^3/uL (2.0-7.7); Basophil# 0.04 X10^3/uL; Basophil% 0.3 % (0-1); Eosinophil# 0.01 X10^3/uL; Eosinophils% 0.1 % (0-5); Hematocrit 34.8 % (37-47); Hemoglobin 11.2 g/dL (12.0-15.0); Lymphocyte # 1.45 X10^3/ul (4.0); Lymphocyte % 10.7 % (19-41); Mean Corp Hgb Conc 32.2 g/dL (32-36); Mean Corpuscular Hgb 30.1 pg (27.0-32.0); Mean Corpuscular Volume 93.5 fL (81-99); Mean Platelet Vol. 10.1 fl (6.2-12.0); Monocyte# 0.22 X10^3/uL; Monocyte% 1.6 % (0-10); NRBC Flagged by Analyzer 0 % (0-5); Neutrophil # 11.76 X10^3/uL (2.7-7.7); Neutrophil % 86.9 % (47-70); Platelet Count 298 K/mm3 (150-450); RBC Distribution Width CV 12.7 % (11.6-14.6); RBC Distribution Width SD 43.8 fl (35.1-43.9); Red Blood Count 3.72 M/mm3 (4.2-5.4); White Blood Count 13.5 K/mm3 (4.4-11.0)
[2019-09-03] MEDS: Escitalopram Oxalate 20 MG Tablet PO (13:40)
[2019-09-03] MEDS: Acetaminophen 500 MG Tablet 1000 MG PO (13:41)
[2019-09-03] MEDS: Ketorolac 30 MG/ML Syringe IV ×2 (15:38→22:10)
[2019-09-03] MEDS: Sucralfate 1 GM Tablet PO ×2 (18:04→22:11)
[2019-09-03] MEDS: Dextrose 5%-Lactated Ringers 1,000 ML 150 ML IV (18:06)
[2019-09-03] MEDS: Enoxaparin 30 MG/0.3 ML Syringe SC (18:09)
[2019-09-03 18:44] LABS: Bacteria 0 SEEN /hpf (None Seen); Mucous, Urine 0 SEEN /hpf (<or=2+); Squamous Epithelial Cells - UA 0 SEEN /hpf (5-10)
[2019-09-03 18:48] LABS: Color, Urine Yellow (Yellow); Glucose, Dipstick Normal (Normal); Ketone-Dipstick Negative (Negative); Leukocyte Esterase-Dipstick Negative /ul (Negative); Nitrite-Dipstick Negative (Negative); Occult Blood-Urine 250 /ul (Negative); Protein-Dipstick Negative (Negative); Urine Bilirubin Dipstick Negative (Negative); Urine Clarity Sl. Cloudy (Clear); Urine Urobilinogen Normal (Normal)
[2019-09-03 18:55] LABS: Red Blood Cells-Urine 50-100 SEEN /hpf (0-5); White Blood Cells 0-5 SEEN /hpf (0-5)
[2019-09-03] MEDS: HYDROcodone Bitartrate/Apap 5/325 Tablet PO (19:45)
[2019-09-03] MEDS: Docusate Sodium 100 MG Capsule PO (19:45)
[2019-09-03] MEDS: Pantoprazole Sodium 20 MG Tablet PO (19:46)
[2019-09-04 03:13] VITALS: BP 115/68; PULSE 83; RESP 16; TEMP 37.1; O2SAT 93
[2019-09-04] MEDS: Ketorolac 30 MG/ML Syringe IV (03:14)
[2019-09-04 05:52] LABS: Hematocrit 31.7 % (37-47); Hemoglobin 10.3 g/dL (12.0-15.0); Mean Corp Hgb Conc 32.5 g/dL (32-36); Mean Corpuscular Hgb 29.5 pg (27.0-32.0); Mean Corpuscular Volume 90.8 fL (81-99); Mean Platelet Vol. 10.4 fl (6.2-12.0); Platelet Count 264 K/mm3 (150-450); RBC Distribution Width CV 12.6 % (11.6-14.6); RBC Distribution Width SD 41.6 fl (35.1-43.9); Red Blood Count 3.49 M/mm3 (4.2-5.4); White Blood Count 14.2 K/mm3 (4.4-11.0)
[2019-09-04] MEDS: Ketorolac 10 MG Tablet PO (06:12)
[2019-09-04] MEDS: Sucralfate 1 GM Tablet PO (06:13)
[2019-09-04 06:14] LABS: Creatinine, Serum 0.62 mg/dL (0.55-1.02); EST Glomerular Filtration Rate 117 mL/min (>60); Est Glom Filt Rate - Afr Amer 142 mL/min (>60); Estimated Creatinine Clearance 109.36 ml/min
[2019-09-04 07:30] VITALS: O2SAT 98
[2019-09-04 07:45] VITALS: BP 131/78; PULSE 72; RESP 16; TEMP 36.7; O2SAT 98
[2019-09-04] MEDS: 0.9% Saline Lock 10 ML Syringe IV (08:03)
[2019-09-04] MEDS: Ondansetron 4 MG/2 ML Vial IV (08:03)
--- NOTE | 2019-09-04 08:07 | NURSING ---
Pt nauseated at this time- 200cc emesis- zofran given and will wait to give PO meds per pt request.
--- NOTE | 2019-09-04 08:33 | PN.OBGYN_ITS ---
Subjective: Patient without complaints. Tolerating diet well. Minimal pain. Positive flatus. Ready to go home. Objective: Wounds are clean, dry, intact. Good urine output. Hemoglobin and creatinine okay. - Physical Exam Vitals/I&O's: Vital Signs Temp Pulse Resp BP Pulse Ox 98.1 F 72 16 131/78 H 98 09/04/19 07:45 09/04/19 07:45 09/04/19 07:45 09/04/19 07:45 09/04/19 07:45 Oxygen Flow Rate (L/min) 2 Oxygen Delivery Method Room Air Weight: 190 lb 4.143 oz Body Mass Index (BMI) 32.6 Intake and Output for Last 24 Hours 09/02/19 09/03/19 09/04/19 23:59 23:59 23:59 Intake Total 5602.5 / 5602.5 927.5 / 927.5 Output Total 1900 / 1900 545 / 545 Balance 3702.5 / 3702.5 382.5 / 382.5 Laboratory Results 09/03/19 11:28: WBC 13.5 H, RBC 3.72 L, Hgb 11.2 L, Hct 34.8 L, MCV 93.5, MCH 30.1, MCHC 32.2, RDW Std Deviation 43.8, RDW Coeff of Jane 12.7, Plt Count 298, MPV 10.1, Immature Gran % (Auto) 0.400, Neut % (Auto) 86.9 H, Lymph % (Auto) 10.7 L, [place] % (Auto) 1.6, Eos % (Auto) 0.1, Baso % (Auto) 0.3, Absolute Neuts (auto) 11.8 H, Absolute Lymphs (auto) 1.45, Nucleated RBC % 0 09/03/19 18:25: Urine Color Yellow, Urine Clarity Sl. Cloudy, Urine pH 7.0, Ur Specific Davenport 1.010, Urine Protein Negative, Urine Glucose (UA) Normal, Urine Ketones Negative, Urine Occult Blood 250 H, Urine Nitrite Negative, Urine Bilirubin Negative, Urine Urobilinogen Normal, Ur Leukocyte Esterase Negative, Urine RBC 50-100 SEEN, Urine WBC 0-5 SEEN, Ur Squamous Epith Cells 0 SEEN, Urine Bacteria 0 SEEN, Urine Mucus 0 SEEN 09/04/19 05:36: WBC 14.2 H, RBC 3.49 L, Hgb 10.3 L, Hct 31.7 L, MCV 90.8, MCH 29.5, MCHC 32.5, RDW Std Deviation 41.6, RDW Coeff of Jane 12.6, Plt Count 264, MPV 10.4 09/04/19 05:36: Creatinine 0.62, Estim Creat Clear Calc 109.36, Est GFR (MDRD) Af Amer 142, Est GFR (MDRD) Non-Af 117 Current Medications Acetaminophen (Tylenol) 1,000 mg PO Q8H PRN PRN PRN Reason: Pain Score 1-3/10 or Fever Last Admin: 09/03/19 13:41 Dose: 1,000 mg Documented by: Hydrocodone Bitart/Acetaminophen (Lyle 5mg-325mg) 1 tablet PO Q4H PRN PRN PRN Reason: Pain Score 6-10/10 Last Admin: 09/03/19 19:45 Dose: 1 tablet Documented by: Docusate Sodium (Colace) 100 mg PO BID PRN PRN PRN Reason: CONSTIPATION Last Admin: 09/03/19 19:45 Dose: 100 mg Documented by: Escitalopram Oxalate (Lexapro) 20 mg PO DAILY [facility] Last Admin: 09/03/19 13:40 Dose: 20 mg Documented by: Hydromorphone HCl (Dilaudid Inj) 0.5 mg IV Q3H PRN PRN PRN Reason: Pain Score 4-10/10 Sodium Chloride () 250 mls @ 15 mls/hr IV .[id number] PRN PRN Reason: Saline Flush Ketorolac Tromethamine (Toradol) 10 mg PO Q6 [facility] Stop: 09/08/19 06:01 Last Admin: 09/04/19 06:12 Dose: 10 mg Documented by: Losartan Potassium (Cozaar) 50 mg PO DAILY [facility] Ondansetron HCl (Zofran) 4 mg IV Q4H PRN PRN PRN Reason: NAUSEA Last Admin: 09/04/19 08:03 Dose: 4 mg Documented by: Pantoprazole Sodium (Protonix) 20 mg PO BID [facility] Last Admin: 09/03/19 19:46 Dose: 20 mg Documented by: Simethicone (Mylicon) 80 mg PO [facility] Last Admin: 09/03/19 22:10 Dose: 80 mg Documented by: Sodium Chloride () 5 - 15 ml IV UD PRN PRN Reason: SALINE FLUSH Last Admin: 09/04/19 08:03 Dose: 10 ml Documented by: Sucralfate (Carafate) 1 gm PO 1HR_ACHS LIZABETH Last Admin: 09/04/19 06:13 Dose: 1 gm Documented by: Medical Necessity - Tobacco Use Smoking Status: Never smoker Tobacco Use: Non-smoker Assessment/Plan All Active Problems Uterine fibroid (Acute) Menorrhagia (Acute) Dysmenorrhea (Acute) Doing well postoperative day #1 status post robotic assisted vaginal hysterectomy and bilateral salpingectomy. Will release to home with routine instructions.
[2019-09-04] MEDS: Pantoprazole Sodium 20 MG Tablet PO (11:36)
[2019-09-04] MEDS: Escitalopram Oxalate 20 MG Tablet PO (11:36)
[2019-09-04] MEDS: Acetaminophen 500 MG Tablet 1000 MG PO (11:36)
[2019-09-04] MEDS: Losartan Potassium 50 MG Tablet PO (11:37)
--- NOTE | 2019-09-04 12:52 | NURSING ---
pt and mother report she was taking bactrim prior to procedure and that she will not be continuing-- both aware no new prescription for atb given from [facility].
== END 2019-09-04 11:55 | disposition home or self-care (01) ==
LOC: SDC 05:19 → AC 05:19 → MS3 09-04 08:34
PROVIDERS: Anesthesiology; Family Provider Family Medicine; PCP Family Medicine; Referring Provider Obstetrics & Gynecology; Visit Provider Obstetrics & Gynecology
PROC: 0UT90ZZ Resection of Uterus, Open Approach (ICD-10-PCS; CPT 58552; principal; 2019-09-03 07:10)
DX: D25.1 Intramural leiomyoma of uterus (principal); D25.2 Subserosal leiomyoma of uterus; N72 Inflammatory disease of cervix uteri; R10.2 Pelvic and perineal pain; I10 Essential (primary) hypertension; F32.9 Major depressive disorder, single episode, unspecified; M19.90 Unspecified osteoarthritis, unspecified site; K21.9 Gastro-esophageal reflux disease without esophagitis; E78.00 Pure hypercholesterolemia, unspecified; Z86.73 Personal history of transient ischemic attack (TIA), and cerebral infarction without residual deficits; Z79.899 Other long term (current) drug therapy
CPT/HCPCS: 58552; 36415; 80048; 81001; 81025; 82565; 85025; 85027; 85610; 85730; 86850; 86900; 86901; 88307; 93005; J7120; A4216; J2405

== ENCOUNTER → 2021-01-08 13:31 | Outpatient (CLI) | payer MEDICARE, MEDICAID, SELFPAY ==
[2019-09-03 13:17] VITALS: BMI 32.6
[2021-01-09 13:49] LABS: Cancer Antigen 125 6.8 U/mL (0.0-38.1)
== END ==
PROVIDERS: PCP Family Medicine; Visit Provider Obstetrics & Gynecology
DX: N83.209 Unspecified ovarian cyst, unspecified side (principal)
CPT/HCPCS: 86304

== ENCOUNTER 2023-08-16 08:00 | Outpatient (RCR) | payer BC, MEDICAID, SELFPAY ==
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
--- NOTE | 2023-08-16 11:20 | BH.SGPN.GN ---
Behaviors/Verbalizations/Mental Status: []Pt alert and oriented, casually dressed and groomed. Eye contact good. Motor activity appropriate. Speech within normal limits. Affect congruent, mood depressed. Thoughts linear, logical, no signs of hallucinations or delusions. Client Response/Progress/Benefit: [] Pt responded well to session, taking notes and participating in worksheet discussion. Pt connected with the zones of action/change and that making sustainable change comes from stepping out of one?s comfort zone into the learning zone. Pt set a goal to gain control over their anxiety and depression. Pt will do this by focusing on being consistent with IOP tx and trying to be vulnerable while she is here. Pt will go for walks and journal as well to keep pt accountable. Appeared to benefit from identifying a small goal to benefit mental health. Will continue IOP tx to prevent decompensation, improve daily functioning, and gain healthy coping skills. ?? Narrative Note: []
--- NOTE | 2023-08-17 09:00 | BH.SGPN.GN ---
Behaviors/Verbalizations/Mental Status: [] Pt alert and oriented, casually dressed and groomed. Eye contact good. Motor activity appropriate. Speech within normal limits. Affect congruent, mood depressed. Thoughts linear, logical, no signs of hallucinations or delusions. Reviewed pt?s symptom tracker, no risk for suicidal ideation, plan, or intent 08/17/23 Client Response/Progress/Benefit: [] Pt responded well to session, attentive and engaged. Pt reports feeling mixed emotions this morning. Pt's first week of IOP tx and pt shared she wants to work on finding myself. Pt also wants to work on adjusting her mindset and learning new ways to manage her mental health symptoms. Pt stated she has struggled with mental health symptoms for a lot of her life, and pt wants to break the cycle. Pt did not talk about her stressors today, but appeared to connect to many of her peers' stressors. Pt appeared to benefit from attending IOP instead of isolating. Pt will continue IOP tx to prevent decompensation, improve daily functioning, and gain healthy coping skills. Narrative Note: []
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
--- NOTE | 2023-08-17 11:25 | BH.NA_ITS ---
Physical Data Vital Signs Pulse Rate: 104 Blood Pressure: 136/92 (Client has not taken her Losartan yet today) Height/Weight Height: 1.63 m Weight:: 81.647 kg Weight in Pounds: 180.0 lbs Current Medication Compliance Medication Compliance Do you take your medication as prescribed?: Yes Nutritional History Appetite Nutritional Instructions: Describe your appetite:: Fair Additional nutritional information:: Client states she has ongoing issues with her stomach since she was a kid and has a lot of nausea. Client states her appetite varies and her weight fluctuates a lot. Sensory/Communication Assess Vision Problems Do you have any vision problems?: Glasses Communication Problems Do you have difficulty understanding what people are saying?: No Medical Problems/History Cardiac Conditions Cardiovascular: Hypertension and Other (See comments) (history of brain aneurysm- had a rupture in 2013, had 4-5 other aneurysms that were coiled ) Neurological Conditions Neurological: Headaches Gastrointestinal Conditions Gastrointestinal: Constipation, Nausea and Other (See comments) (Client has a long history of issues with her stomach- states she has been diagnosed with IBS, diverticulitis, takes Zofran on a daily basis for nausea. Client states she has had lots of issues with constipation.) Pain Assessment Do you have acute or chronic pain?: Yes (fibromyalgia- pain all over at times) Additional History Additional comments:: fibromyalgia recently diagnosed- client states she thinks she has always had it because she had fatigue and pain all over since I was a kid Surgical History Surgical History Have you had any surgeries? If so, list type and date:: Yes (brain aneurysm coils, hysterectomy, sandra, appendectomy) Substance Abuse Substance Abuse Please describe substance abuse in the last 30 days:: Client states she occasionally drinks alcohol socially. Client denies tobacco or substance use. Client states she drinks between 4-6 pops with caffeine in them per day. Mental Status Summary Mental Status Significant Findings/Observations on Appearance and Mood:: Client is alert and oriented x 4. Client is casually groomed with good hygiene. Client is cooperative with assessment. Client makes fair eye contact. Client's voice has normal rate and volume, but she is slow to respond with speech at times and client gets off topic at times with answers. Client has appropriate affect. Client makes logical associations. Client denies delusions/hallucinations. Client denies SI. Suicide Assessment Suicidal Ideation Are you currently or have you been suicidal in the past?: No Suicidal Intentional Rating Scale (SIRS): No suicidal thoughts (past or present) Physician Notification Past Psychiatric History MH Treatment Hx Past Psychiatric Medications:: Lexapro Age of first mental health symptoms: Client states she first started counseling as a child after she dropped out of school. Client states she has been on medications for mental health since early adulthood. Describe (age, circumstance, etc) any past hospitalizations: None. Current providers for mental health treatment (counselor, psychiatrist, bottle caser, etc.): Dr. Arriaza for psychiatry, Kari at [facility] for counseling Fall Risk Assessment Age Age: Less than 60 Mental Status Mental Status: Willing & able to ask for assistance when needed Physical Status Physical Status: No problems Impairments Impairments: None Elimination Elimination: Continent AND independent Gait or Balance Gait or Balance: Walks independently Hx of Falls History of falls in the past 6 months: No known history Medications/Substances Psychotropics:: Antidepressants and Antihistamines (e.g. Benadryl) Medications/substances used within the past 24 hours or ordered to administer: 1-2 of the medications/substances listed above Total Score Total Points:: 1 RN Summary of Impressions Impressions Recommendations Impressions: Psychiatric Issues: 1. Major depressive disorder, recurrent, moderate 2. PTSD 3. Generalized anxiety disorder 4. Cluster B traits 5. Limited primary support and marital issues Level of Care How do the client's current symptoms and functional deficits support need for this level of care?: Client was referred to IOP by outpatient counselor for increased depression, erratic moods, and needing more support than traditional therapy. Client states I feel like I've been hiding my feelings and how bad my family treated me for so long, and my counselor really has me opening up and I feel overwhelmed by all of it now. Client states I have always been told my whole life I would never be able to do so many things, and I really just want to know what I'm actually capable of doing. Client does report brain fog and memory issues, especially after a brain aneurysm rupture in 2013. Client reports school being very traumatic for her as a kid and states she dropped out of [facility] because of it. Client reports isolating herself, being irritable, and overall not knowing how to cope with things from her past. Client denies SI. IOP will promote gains and prevent further decompensation while providing social support and skills training.
[2023-08-17 12:06] VITALS: BP 136/92; PULSE 104
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
--- NOTE | 2023-08-17 12:46 | BH.DR.ITP ---
Initial Treatment Plan Patient Information Visit Information: ADMISSION DATE: EXPECTED LOS: 4-6 weeks Problems/Symptoms Problem #1:: Depression Symptom:: Sadness, irritability, hopelessness, low motivation, biological disruption of sleep, low energy, decreased concentration, guilt, passive thoughts of Problem #2:: Anxiety Symptom:: Worry, rumination, panic attacks, nightmares, flashbacks, reexperiencing, avoidance
--- NOTE | 2023-08-19 09:00 | BH.SGPN.GN ---
Behaviors/Verbalizations/Mental Status: [Patient was alert and oriented, appropriately dressed and groomed. Eye contact was good, motor activity normal, speech within normal limits. Affect congruent, mood content. Thoughts linear, logical, no signs of hallucinations or delusions. Reviewed Patients symptom tracker and the patient reports moderate to severe in anxiety/panic attacks, low to moderate in depressed mood, and low for agitation/irritability/anger. The patient also reports no symptoms of self-harm urges/behaviors, or thoughts/risk of suicide. ] Client Response/Progress/Benefit: [Patient was engaged and open to the discussion. Patient reported her mood to be ?Apprehensive?. ?Patient shared that her first win involved her being able to use her breathing coping skill. Patient was at her mother in laws house, and they said something that made her upset. Instead of letting it ?break her down? she practiced a breathing technique to help calm her. She said it was successful enough to distract her. The second win was that she is now for the ?first time? in her life she is choosing herself and to get herself help. The stressor she had was that she has some house maintenance that needs done but is struggling with contractors. Patient was interactive and respectful with other group members about their mental wins and stressors. Patient benefited from the discussion by listening to feedback and giving input on her peer?s stressors and mental health wins. Patient will continue with IOP treatment to help develop healthy skills, promote mood stability, and improve distress tolerance. ] Narrative Note: []
--- NOTE | 2023-08-19 10:12 | BH.SGPN.GN ---
Behaviors/Verbalizations/Mental Status: []Pt alert and oriented, casually dressed and groomed. Eye contact good. Motor activity appropriate. Speech within normal limits. Affect congruent, mood anxious and depressed. Thoughts linear, logical, no signs of hallucinations or delusions. Client Response/Progress/Benefit: [] Pt receptive to session AEB contributing to small group discussion, as well as listening attentively to others, and taking notes. Worked with group to brainstorm the positive and negative aspects of stress on physical and mental health. Group did well to identify the benefits of stress as well as the impact of distress on performance, relationships, and mental health. Pt identified their personal top stressors as: physical health, mental health, and past trauma. Pt seemed to benefit from increased awareness of current stressors and impact stress has on mental health. Recommended to continue IOP tx to increase healthy coping, improve self-esteem and daily functioning, and prevent decompensation. Narrative Note: []
--- NOTE | 2023-08-19 11:15 | BH.SGPN.GN ---
Behaviors/Verbalizations/Mental Status: []Pt alert and oriented, casually dressed and groomed. Eye contact good. Motor activity appropriate. Speech within normal limits. Affect congruent, mood anxious and depressed. Thoughts linear, logical, no signs of hallucinations or delusions. Client Response/Progress/Benefit: []Pt was an active participant in group discussions and experiential activity. Was able to identify the connection between the experimental activity and utilization of stress management skills. Pt reported feeling at times frustrated during the activity but did well to use breathing and thought challenging to manage her emotions. Attentive during psychoeducation on the 4 A's (Avoid, adapt, alter, accept) of coping with stress as well as strategies to identify stressors in which one has no control, little control, or a great deal of control over. Pt shared plans to utilize the skill of adapt to begin to challenge negative mindset and improve positive self-talk as she work on improving her mental health management. Benefited from increased awareness of stress management strategies. Will continue in IOP to prevent decompensation, improve mood stability, and increase self-compassion. Narrative Note: []
--- NOTE | 2023-08-24 09:00 | BH.SGPN.GN ---
Behaviors/Verbalizations/Mental Status: [Patient was alert and oriented, casually dressed and groomed. Eye contact was good, motor activity normal, speech within normal limits. Affect congruent, mood anxious. Thoughts linear, logical, no signs of hallucinations or delusions. Reviewed Patients symptom tracker and the patient reports severe in anxiety/panic, moderate/severe in agitation/irritability/anger, and moderate in depression. The patient reports no symptoms in self-harm urges, and thoughts/risk of suicide.??] Client Response/Progress/Benefit: [Patient was engaged and open to the discussion. Patients mood is ?anxious?. Patients first win is that she went to the grocery store and ended up not having enough money to cover her bill. She explained she was able to practice some deep breathing skills when she started to get upset. The patient stated that someone offered to pay for the rest of what she owed which she appreciated a lot. Patient second win is also a stressor. The patient describes that her parents have cut her out of their lives because of the patients . The patient is still getting use to her parents cutting her off and is coping better then she has in the past.? Patient was interactive and respectful with other group members about their mental wins and stressors. Patient benefited from the discussion by listening to feedback and giving input on her peer?s stressors and mental health wins. Patient will continue with IOP treatment to help develop healthy skills, promote mood stability, and improve distress tolerance.] Narrative Note: []
--- NOTE | 2023-08-24 10:10 | BH.SGPN.GN ---
Behaviors/Verbalizations/Mental Status: [] Eye contact is good. Motor activity is appropriate. Appearance is casual. Speech is Appropriate. Mood is anxious. Affect is congruent. Thoughts are linear and logical. No evidence of psychosis. Client Response/Progress/Benefit: [] Pt was an active participant during group discussions and group activities. Attentive during psychoeducation. Engaged during activity in which they identified which type of foods (i.e. carbs, sugar, salt, fast food, caffeine, etc) they seek out when sad, tired, angry, rushed, anxious, etc. Pt was able to identify the impact that certain foods have on their mental health through group example which was beneficial. Increased awareness of the connection between nutrition and mental health. Will continue in IOP to prevent decompensation, increase healthy coping, and improve functioning. Narrative Note: []
--- NOTE | 2023-08-24 11:10 | BH.SGPN.GN ---
Behaviors/Verbalizations/Mental Status: []Pt alert and oriented, casually dressed and groomed. Eye contact good. Motor activity appropriate. Speech within normal limits. Affect congruent, mood depressed and anxious. Thoughts linear, logical, no signs of hallucinations or delusions. Client Response/Progress/Benefit: []Pt was an active participant throughout AEB contributing to group discussion and taking notes. Pt provided input during small group discussion on strategies to combat each factor maintaining adverse nutritional cycles. Worked with group to identify ways to foster more mindful nutritional choices. Each group participant identified one small step they could take today to begin establishing mental wellness promoting nutritional choices. Pt shared plans to?get her crockpot out so she can prepare dinners instead of getting fast food. Appeared to benefit from gaining insight into mental wellness centered nutrition and identifying personal steps Pt can take to support own nutritional psychology. Recommended continued IOP tx to prevent decompensation, gain healthy coping skills, and improve daily functioning. Narrative Note: []
--- NOTE | 2023-08-25 10:05 | BH.SGPN.GN ---
Behaviors/Verbalizations/Mental Status: [] Eye contact is good. Motor activity is appropriate. Appearance is casual. Speech is Appropriate. Mood euthymic. Affect is congruent. Thoughts are linear and logical. No evidence of psychosis. Client Response/Progress/Benefit: [] Client connected with topic of Anxiety and participated throughout, providing input and taking notes. Attentive during psychoeducation on different anxiety disorders and participated throughout interactive discussion defining anxiety and identifying cognitive and physiological symptoms of anxiety. Common physical and cognitive symptoms identified by group included: ?what if thoughts?, ?fear of failure?, negative self-talk, feeling nauseous, shaky, and hot. Client identified self-harm and shutting down as personal safety behaviors.. Benefited from increased awareness and insight on anxiety and its impact. Plan is to continue in IOP to increase overall functioning, increase self caare, and prevent decompensation. Narrative Note: []
--- NOTE | 2023-08-25 11:11 | BH.SGPN.GN ---
Behaviors/Verbalizations/Mental Status: [] Eye contact is good. Motor activity is appropriate. Appearance is casual. Speech is Appropriate. Mood is euthymic. Affect is congruent. Thoughts are linear and logical. No evidence of psychosis. Client Response/Progress/Benefit: [] Client was an active participant in group discussion and providing good insight to peers. Attentive during psychoeducation on mindfulness coping skills and their impact on mental health wellness. The group worked together to brainstorm soothing and mind-based mindfulness strategies to improve anxiety management. The group practiced guided meditation and discussed its benefit. Client shared they plan to utilize taking hot baths, prayer, and self talk to manage anxiety.. Client seemed to benefit from increased repertoire of anxiety reduction skills. Client will continue IOP tx to prevent decompensation, improve overall functioning, and gain healthy coping skills. Narrative Note: []
--- NOTE | 2023-08-25 11:26 | BH.MDN ---
Multi-Disciplinary Note Note 30-min Individual: Time Started:: 09:25 Date: 08/25/23 Purpose of session/treatment goals addressed:: Purpose of session was to address pt concerns regarding the group setting and identify accommodations to improve pt maximum treatment benefit. Additional purpose was to begin challenging negative self-talk which reinforces pt depression. Eye Contact:: Good Motor Activity:: Appropriate Appearance:: Casual Speech:: Appropriate Mood:: Anxious and Depressed Affect:: Congruent Thoughts:: Linear, Logical and No evidence of hallucinations/delusions noted Staff Interventions:: motivational interviewing, psychoeducation on: (positive affirmations), CBT techniques, rapport building, strengths perspective and other (emotional support) Client Response:: Pt responded well to session, actively engaged throughout. Reported enjoying the program thus far, especially the community aspect; however, is feeling anxious about her ability to retain and understand the information provided. Pt discussed that she has had difficulties in keeping up and taking notes due to her learning difficulties. Shared that she fears people will see her as a burden, become impatient, or have pity for her because people have treated her poorly in the past. Discussed low self-confidence and negative self-talk as a result. Therapist provided emotional support and reassurance that the treatment team would work with pt to accommodate her needs. Discussed continuing to have someone else take notes for her so she can focus on just listening and working in individual sessions to review some of the material discussed in groups that she may not understand or be confused about. Pt shared learning best visually and experientially. She was receptive of the idea of doing more hands-on approaches to therapy via practicing grounding and calming skills, as well as finding a workbook with pictures to help her better understand the materials and reference them when reviewing things later or outside of the therapeutic environment. Pt noted feeling a little less anxious as a result. Went on to discuss the impacts of self-talk on self-esteem and mental health symptoms. Pt shared struggling with replaying many of the negative statements her parents used to say to her which reinforces negative thoughts about herself. Receptive of discussion on affirmations and incorporating positive self-talk statements to begin replacing the negative messages she currently tells herself. Identified a goal of telling herself ?It?s okay to be different? and ?It?s okay to be me? daily. Risks/Concerns:: None noted, pt denies any SI, plan, or intent as of this date 08/25/23. Progress Toward Goals/Plan:: Progress limited as this is pt's second week and she is still adjusting to the treatment environment. Pt reports some difficulties in retaining information provided in the group setting which may create a barrier to progress as well. Willing to work with therapist to identify appropriate accommodations to improve treatment outcome potential. Additionally discussed [facility] through [facility] as a means of enhancing pt's external support network. Pt reports ongoing issues with negative self-talk, low confidence, poor self-care, and relationship tensions which reinforce depressive sx. Pt recommended continued IOP tx to further improve self-care, increase healthy coping repertoire, and prevent decompensation. Time Stopped:: 09:57
--- NOTE | 2023-08-26 09:00 | BH.SGPN.GN ---
Behaviors/Verbalizations/Mental Status: [ Patient was alert and oriented, appropriately dressed and groomed. Eye contact was good, motor activity normal, speech within normal limits. Affect congruent, mood anxious. Thoughts linear, logical, no signs of hallucinations or delusions. Reviewed Patients symptom tracker and the patient reports severe in anxiety/panic attacks, moderate to severe in depressed mood, and moderate in agitation/irritability. Patient does not report symptoms in self-harm urges, or thoughts/risk of suicide. ] Client Response/Progress/Benefit: [Patient was engaged and open to the discussion. Patient reported her mood to be ?anxious and worn out?. Patient stated her first win is that she has started working on her house with the help of her [id number]. The second win is also a stressor. The patient is happy that she came to group, but the stressor part of group is that she feels like she ?learns different? and feels ?excluded? sometimes. She wonders a times if this group is for her because she doesn?t understand the way its taught sometimes. Patient was interactive and respectful with other group members about their mental wins and stressors. Patient benefited from the discussion by listening to feedback and giving input on her peer?s stressors and mental health wins. Patient will continue with IOP treatment to help develop healthy skills, promote mood stability, and improve distress tolerance. ] Narrative Note: []
--- NOTE | 2023-08-26 10:20 | BH.SGPN.GN ---
Behaviors/Verbalizations/Mental Status: [] Eye contact is fair. Motor activity is appropriate. Appearance is casual. Speech is Appropriate. Mood is anxious. Affect is congruent. Thoughts are linear and logical. No evidence of psychosis. Client Response/Progress/Benefit: [] Pt was an active participant in group discussions AEB listening attentively to others and providing feedback at times. Participated in and was engaged during experiential activity. Able to relate activity to group topic of FOF. Engaged during interactive discussion on what failure means to the group in which peers identified and defined failure. Group was able to identify impact of fear of failure on mental health. Attentive during interactive discussion on the role that FOF plays in mental wellness, depression, anxiety, and growth. Benefited from increased awareness of how the role that FOF plays in mental health and decision-making. Will continue in IOP to stabilize mood, prevent decompensation, and increase healthy coping. Narrative Note: []
--- NOTE | 2023-08-26 11:15 | BH.SGPN.GN ---
Behaviors/Verbalizations/Mental Status: []Pt alert and oriented, casually dressed and groomed. Eye contact good. Motor activity appropriate. Speech within normal limits. Affect congruent, mood dysthymic and anxious. Thoughts linear, logical, no signs of hallucinations or delusions. Client Response/Progress/Benefit: [] Pt responded well to session, engaged in the experiential activity and attentive throughout group processing. Pt reported fear of failure has kept Pt from from toxic people in the past. Pt completed fear of failure worksheet and was able to identify thoughts and behaviors that reinforce personal fear of failure including: negative thinking, doubt, past experiences, and poor self-esteem. Pt participated in group discussion regarding strategies to overcome fear of failure. Identified wanting to work on starting to improve positive self-talk. Appeared to benefit from increased knowledge of strategies to combat fear of failure and gaining self-awareness. Pt will continue IOP tx to promote mood stability, continue to improve confidence, and prevent decompensation. Narrative Note: []
--- NOTE | 2023-08-31 09:00 | BH.SGPN.GN ---
Behaviors/Verbalizations/Mental Status: [Patient was alert and oriented, appropriately dressed and groomed. Eye contact was good, motor activity normal, speech within normal limits. Affect congruent, mood content. Thoughts linear, logical, no signs of hallucinations or delusions. Reviewed Patients symptom tracker and the patient reports moderate in agitation/irritability/anger, low to moderate in anxiety/panic attacks, and low in depressed mood. Patient does not report symptoms for self-harm urges or suicidal thoughts/risks.] Client Response/Progress/Benefit: [ Patient was engaged and open to the discussion. Patient reported her mood to be ?anxious but excited?. Patients first win involves her [employer]itan. She asked someone to go get coffee with her and they agreed and invited her to their bible study. The second win was that she feels that she is finally making choices for herself and putting herself ?out there? more. The stressor identified was that she was nervous about going to this bible study and was not sure she was going to go. The group helped her identify ways to manage her anxiety if it became too overwhelming. Patient was interactive and respectful with other group members about their mental wins and stressors. Patient benefited from the discussion by listening to feedback and giving input on her peer?s stressors and mental health wins. Patient will continue with IOP treatment to help develop healthy skills, promote mood stability, and improve distress tolerance. ] Narrative Note: []
--- NOTE | 2023-08-31 10:20 | BH.SGPN.GN ---
Behaviors/Verbalizations/Mental Status: []Pt alert and oriented, casually dressed and groomed. Eye contact good. Motor activity appropriate. Speech within normal limits. Affect congruent, mood anxious and depressed. Thoughts linear, logical, no signs of hallucinations or delusions. Client Response/Progress/Benefit: [] Pt responded well to session AEB contributing to discussion, taking notes, and listening attentively to others. Group discussed the benefits of managed anger and anger as a secondary emotion. Pt shared perspective on personal benefits of anger as motivated for change and communication. Pt completed worksheet on anger triggers and personal warning signs of anger. Pt shared she connected a lot with the anger iceberg, sharing that she gets angry when she ?stuff all my emotions.? Pt shared she tends to displace her anger on her . Appeared to benefit from increased knowledge of the anger cycle as well as personal triggers. Will continue IOP tx to reduce negative self-talk, gain healthy coping skills, and improve daily functioning. Narrative Note: []
--- NOTE | 2023-08-31 11:15 | BH.SGPN.GN ---
Behaviors/Verbalizations/Mental Status: []Client alert and oriented, casually dressed and groomed. Eye contact good. Motor activity appropriate. Speech within normal limits. Affect congruent, mood euthymic. Thoughts linear, logical, no signs of hallucinations or delusions. Client Response/Progress/Benefit: []Pt was attentive throughout AEB contributing at times to small group discussion and self-reflection. Group finished processing cues to anger worksheet. Pt completed personal anger cycle. Identified triggering event, negative thoughts, emotional response, physical symptoms, and behavioral response. Pt attentive as group brainstormed healthy coping skills for better managing anger which included: problem solving, walking/exercise, taking a break, grounding tools, reflection, and journaling. Pt worked in small groups to identify healthy coping skills/strategies to manage anger. Pt identified connected with taking a breath before responding. Pt appeared to benefit from identifying different techniques to manage anger as well as gaining awareness of potential consequences of unmanaged anger. Will continue IOP tx to improve view of self, increase healthy coping, and prevent decompensation.
--- NOTE | 2023-08-31 11:50 | PCM.BH.PN ---
Progress Note Progress Note: And history of Present Illness/Interim History: The patient is a 38-year-old female with a history of depression, PTSD and mild developmental delay who is seen in follow-up at the [facility] behavioral health IOP. I last saw the patient 2 weeks ago and at that time Wellbutrin was discontinued and Paxil was started. She is tolerating the Paxil well with no side effects. She is consistent and engaged in the IOP according to the staff and is making progress. She still has some sadness and occasional irritability. She denies now hopelessness and denies passive thoughts of and admits that her mood is somewhat less depressed than before. She also denies suicidal ideation, plan for suicide, homicidal ideation, hallucinations or delusions. She has not had any panic attacks in the last week or 2. She continues to have GI issues and vomits from them sometimes daily and perseverates somewhat on her GI issues during the interview. Current Psychiatric Medications: [] Paxil 10 mg p.o. daily (x2 weeks); Wellbutrin discontinued 2 weeks ago; Lunesta 2 mg p.o. nightly; prazosin 1 mg p.o. nightly; hydroxyzine 25 mg p.o. daily Mental Status Examination: [] The patient is a 38-year-old female who appears normal for stated age and is overweight and wearing glasses. She is casually dressed and groomed with good hygiene and has no psychomotor agitation or retardation. She is cooperative during the interview. Eye contact is good and speech is normal rate and rhythm and fluent with no pressure. Mood is depressed. Affect is mildly constricted. Thought process is goal-directed and organized. Thought content: There is evidence still of perseveration on her GI issues. There is no evidence of passive thoughts of , suicidal ideation, homicidal ideation, plan for suicide, hallucinations or delusions. Reality testing is intact. Intelligence is average or little below average. Judgment is intact. Insight is limited. Impulsivity is moderate. Diagnoses: [] 1. Major depressive disorder, recurrent, moderate 2. PTSD 3. Generalized anxiety disorder 4. Cluster B traits 5. Limited primary support and marital issues Plan: [] The patient will continue the IOP at [facility] as the structure, support, education and group therapy will hopefully prevent worsening of the patient's symptoms. She felt safe during the interview and if it anytime she does not feel safe she will let us know or go to the emergency room. The risk, options, possible side effects and complications from the medications were discussed with the patient and she understands accepts these. The patient states that she has help with her medication compliance at home. The patient agrees to add Lamictal 25 mg p.o. for 2 weeks and then 50 mg p.o. for 2 weeks to help with her irritability and help prevent depression. She will continue the current dose of Paxil as she is only been on it for 2 weeks. She will continue to follow-up with her outpatient providers and I will see the patient in follow-up in 2 weeks and at that time we may increase the Paxil if warranted.
--- NOTE | 2023-09-01 10:20 | BH.SGPN.GN ---
Behaviors/Verbalizations/Mental Status: []Pt alert and oriented, casually dressed and groomed. Eye contact good. Motor activity appropriate. Speech within normal limits. Affect congruent, mood anxious and depressed. Thoughts linear, logical, no signs of hallucinations or delusions. Client Response/Progress/Benefit: []Pt receptive of session, actively engaged throughout AEB taking notes, providing input, and listening to discussion. Appeared to connect with group topic of cognitive distortions and the impact of thought patterns on mental health, coping behaviors, and relationships. Pt reports connecting with distortions of mind-reading and disqualifying the positives. Pt stated she has difficult time with assuming she knows what her is thinking. Pt appeared to benefit from gaining insight on distorted thinking patterns and how this impacts overall mental health. Will continue IOP tx to improve self-esteem, increase healthy coping, and prevent decompensation. Narrative Note: []
--- NOTE | 2023-09-01 10:24 | BH.PSA ---
Source of Information Presenting Problems/Circumstances Problems, Referral Source, Mental Status, Client: Patient is a self-referral whom is experiencing debilitating mental health symptoms. Psychiatric Presentation Psych Issues & Need for Admission Psychiatric Issues:: Patient stated her mental health symptoms are affecting her ability to cope with day to day life. Symptoms include anxiety, panic, depression, anger. Patient has a history of cutting herself to alleviate these.
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
--- NOTE | 2023-09-01 11:15 | BH.SGPN.GN ---
Behaviors/Verbalizations/Mental Status: [] Eye contact is fair. Motor activity is within normal limits. Appearance is casual. Speech is Appropriate. Mood is dysthymic. Affect is constricted. Thoughts are linear and logical. No evidence of psychosis. Client Response/Progress/Benefit: [] Pt was an engaged participant during group discussions and activity. Pt was placed in a smaller group and participated in activity in which small groups worked together to answer questions based on identifying, challenging, and reframing cognitive distortions. Pt was engaged in the smaller group, participated in group interactions to brainstorm answers, and appeared to be comprehending cognitive distortions. Connected with others about impact distortions can have on functioning and decisions. Benefited from gaining further insight and awareness of cognitive distortions as well as practicing ways to reframe and challenge thoughts. Will continue in IOP to improve outlook on life, improve view of self, and prevent decompensation.
--- NOTE | 2023-09-01 15:05 | BH.MDN ---
Multi-Disciplinary Note Note 60-min Individual: Time Started:: 09:00 Date: 09/01/23 Purpose of session/treatment goals addressed:: Gather information on patients triggers, stressors, history, and treatment. Symptoms/Behavior:: Patient was alert and oriented, appropriately dressed and groomed. Eye contact was fair, motor activity normal, speech within normal limits. Affect congruent, mood content. Thoughts linear, logical, no signs of hallucinations or delusions. Eye Contact:: Fair Motor Activity:: Appropriate Appearance:: Casual Speech:: Appropriate Mood:: Euthymic Affect:: Congruent Thoughts:: Linear and No evidence of hallucinations/delusions noted Staff Interventions:: rapport building, strengths perspective, treatment planning and other (Psychosocial assessment) Client Response:: Patient was engaged and responsive to the session. Patient shared she has been struggling since a young age with mental illness. Patient was emotional during the session when discussing the treatment she received from her family. Patient has been in and out of therapy since [facility]. Patient reported that she does have strengths but finds difficulty remembering them and difficulty using coping skills. Patient would like to come out of the program having the ability to better understand her triggers and use of coping skills. Risks/Concerns:: There are no risks or concerns for safety at this time. Progress Toward Goals/Plan:: Good Progress. Time Stopped:: 10:10
--- NOTE | 2023-09-02 09:00 | BH.SGPN.GN ---
Behaviors/Verbalizations/Mental Status: [ Patient was alert and oriented, appropriately dressed and groomed. Eye contact was good, motor activity normal, speech within normal limits. Affect congruent, mood content. Thoughts linear, logical, no signs of hallucinations or delusions. Reviewed Patients symptom tracker and the patient reports moderate in agitation/irritability/anger, low to moderate in anxiety/panic attacks, and low in depressed mood. Patient does not report symptoms for self-harm urges or suicidal thoughts/risks.] Client Response/Progress/Benefit: [Patient was engaged and open to the discussion. Patient reported her mood to be ?anxious but hopeful?. Patients first win was that she read really late last night, and she enjoyed it although she is tired. Patients second win was that she unpacked 2 boxes full of books and put them on her bookcase. Patients stated that she is always stressed out, but she specifically is stressed out about having the ability to understand the group material. Patient was interactive and respectful with other group members about their mental wins and stressors. Patient benefited from the discussion by listening to feedback and giving input on her peer?s stressors and mental health wins. Patient will continue with IOP treatment to help develop healthy skills, promote mood stability, and improve distress tolerance. ] Narrative Note: []
--- NOTE | 2023-09-02 10:10 | BH.SGPN.GN ---
Behaviors/Verbalizations/Mental Status: [] Client alert and oriented, casually dressed and groomed. Eye contact good. Motor activity appropriate. Speech within normal limits. Affect congruent, mood euthymic. Thoughts linear, logical, no signs of hallucinations or delusions. Client Response/Progress/Benefit: [] Client was an active participant, AEB taking notes and providing input in group discussions and activities. Attentive during psychoeducation. Client engaged during interactive discussion in which the group defined self-care and discussed its benefits. Group discussed barriers to engaging in self-care. Client identified personal barrier of putting others needs ahead of their own in preventing them to practicing self care. Client participated in small groups where they worked to identify common self-care ?myths?. Benefited from increased awareness of self-care, its benefits, and the consequences of not utilizing self-care strategies. Will continue IOP tx to prevent decompensation,improve self worth and continue to improve mood stability. Narrative Note: []
--- NOTE | 2023-09-02 11:10 | BH.SGPN.GN ---
Behaviors/Verbalizations/Mental Status: [] Client alert and oriented, neatly dressed and groomed. Eye contact good. Motor activity appropriate. Speech within normal limits. Affect congruent, mood euthymic. Thoughts linear, logical, no signs of hallucinations or delusions. Client Response/Progress/Benefit: [] Client engaged participant AEB completing self-assessment worksheet and providing input throughout discussion. Client completed worksheet identifying current self-care practices and what self-care activities client wants to start using. Client selected financial self-care to begin practicing more consistently. Client plans to do this by finding a way to make a budget and sticking to it. Appeared to benefit from completing the self-care evaluation and gaining insights into current self-care practices, as well as identifying areas in which Client would like to improve upon. Client will continue IOP tx to prevent decompensation, challenge negative thinking patterns, and improve daily functioning. Narrative Note: []
--- NOTE | 2023-09-07 09:00 | BH.SGPN.GN ---
Behaviors/Verbalizations/Mental Status: [] Eye contact is good. Motor activity is appropriate. Appearance is casual. Speech is Appropriate. Mood is depressed. Affect is flat. Thoughts are linear and logical. No evidence of psychosis. Reviewed daily check in sheet and no reports of suicidal ideations or intent. Client Response/Progress/Benefit: [] Pt participated at times during the group discussions. Attentive. Daily symptom tracker notes 4/5 for depression, anxiety, irritability, and self-harm urges. Shred with the group increased self-care and and self-praise which have improved her mindset. Reports that she is able to realize more realistic and positive thoughts entering her mind such as I'm worth it and I'm proud of myself. Overall increase in ability to challenge and reframe thoughts. Progress noted per pt report. Benefited from group support, encouragement, and feedback. Will continue in IOP to prevent decompensation, increase healthy coping, and improve functioning. Narrative Note: []
--- NOTE | 2023-09-07 11:10 | BH.SGPN.GN ---
Behaviors/Verbalizations/Mental Status: []Pt alert and oriented, casually dressed, appropriately groomed. Eye contact good. Motor activity appropriate. Speech within normal limits, mostly quiet. Affect congruent, mood anxious and depressed. Thoughts linear, logical, no signs of hallucinations or delusions. Client Response/Progress/Benefit: [] Pt was engaged during discussion and willing to complete the worksheet challenging them to develop a personal SMART goal. Pt was in the ER last night due to having a Kidney Stone which impacted pt?s energy levels and participation today. Pt declined to complete the worksheet, but pt stated she wants to continue working on giving herself credit and paying attention to her mental health wins. ?Benefited from this group by developing a short-term SMART goal related to mental health. Pt also seemed to benefit from gaining peer feedback and support. Will continue IOP tx to prevent decompensation, improve daily functioning, and gain healthy coping skills. Narrative Note: []
--- NOTE | 2023-09-07 15:18 | BH.TPR ---
Treatment Plan Review Demographics Date of Admission:: 08/16/23 Date of Treatment Plan Review:: 09/07/23 Admitting Diagnoses:: Diagnosis #1::Major depressive disorder, recurrent, moderate Diagnosis #2::PTSD Diagnosis #3::Generalized Anxiety Disorder Diagnosis #4::Cluster B traits Current Diagnoses:: Diagnosis #1::Major depressive disorder, recurrent, moderate Diagnosis #2::PTSD Diagnosis #3::Generalized Anxiety Disorder Diagnosis #4::Cluster B traits Patient Status Patient's Response to Treatment:: Pt has responded well to treatment AEB pt consistently attending IOP sessions and self-report of benefitting from IOP tx, though did express some concern that at times she struggles with keeping up with information presented in groups. Pt's overall DSM-5 scores have reduced by 16% since admission. Pt contributes well during individual sessions and takes notes throughout group sessions. Pt attempts to use coping skills outside of IOP though would benefit from continued focus in this area and is a good support to peers. Status of Current Problems and Symptoms: Pt's symptoms and stressors are ongoing, but per her DSM-5 her anxiety and depression symptoms are resolving. Pt is more comfortable in the group setting and has been working to cope with the boundaries she has set with her parents, which was a major stressor when pt started IOP. Pt continues to report relationship stress which triggers depressive symptoms and reinforces feelings of guilt and loneliness. Pt is working on combating negative self-talk and coping with her PTSD, but pt still has numerous negative core beliefs. Pt continues to cope with independent living and medical stressors. Progress Problem #1: Problem Name:: Depression, guilt, passive thoughts of Status of Goals:: Objective 1- not complete. Pt is beginning to be able to identify numerous coping skills to manage depression, but pt?s current relationship and ongoing rumination on familial stressors continues to reinforce negative thoughts of self and depression. Despite this, pt has been actively working on challenging her mindset and implementing more self-care. As a result, Pt?s scores for depression reduced by 63% since admission. Objective 2- In progress. Pt is able to challenge her negative self-talk with the help of therapist, but pt struggles to do this on her own given significant negative core beliefs. Team Recommendations:: Treatment tx recommends pt continue working on this treatment goal as pt's depression. Treatment team also recommends pt continue to reach out to healthy supports and practice self-care. Encouraged to look into the [facility] program for additional support. Problem #2: Problem Name:: Anxiety, rumination Status of Goals:: Objective 1- in progress. Pt is working on improving her communication with healthy supports and engaging in activities for healthy distraction to reduce fixation on her parents and pt PTSD associated with this which reinforces anxiety. Objective 2-complete with ongoing work encouraged. Pt?s DSM-5 scores for anxiety have decreased by 18% since admission. Pt reports less anxiety about group and is actively working to maintain the boundaries with her parents which is likely contributing to the reduction. Team Recommendations:: Treatment team encourages pt to continue working on this goal to further reduce anxiety and rumination. Additionally, pt is recommended to continue working on her self-care goals to improve emotional regulation and reduce rumination.
--- NOTE | 2023-09-08 10:17 | BH.SGPN.GN ---
Behaviors/Verbalizations/Mental Status: []Pt alert and oriented, neatly dressed and groomed. Eye contact good. Motor activity appropriate. Speech within normal limits. Affect constricted, mood depressed. Thoughts linear, logical, no signs of hallucinations or delusions. Client Response/Progress/Benefit: [] Pt was an active participant AEB providing input and was actively taking notes. Connected with the topic of pitfalls and listened to group discussion on internal and external barriers that prevent from choosing a healthier path to mental wellness. Group worked together to identify examples of personal internal pitfalls and pt identified theirs as feeling helpless and having no self-worth. Pt benefited from group as Pt learned to better identify and normalize potential barriers to improving mental health symptoms. Pt also gained awareness of the difference between external triggers and self-sabotaging behaviors. Pt will continue IOP tx to prevent decompensation, reduce negative self-talk, and reduce isolation. ?? Narrative Note: []
--- NOTE | 2023-09-08 11:15 | BH.SGPN.GN ---
Behaviors/Verbalizations/Mental Status: []Pt alert and oriented, casually dressed and groomed. Eye contact good. Motor activity appropriate. Speech within normal limits. Affect congruent. Mood anxious and depressed. Thoughts linear, logical, no signs of hallucinations or delusions. Client Response/Progress/Benefit: []Pt was an active participant AEB contribution to discussion, taking notes, and willingness to engage in group activity. Connected with the topic of pitfalls and listened to group discussion on internal and external barriers that prevent from choosing a healthier path to mental wellness. Group worked together to identify examples of internal pitfalls presented in the activity as well as strategies for managing or preventing these. Pt identified personal pitfalls to include: poor self-worth and helplessness. Pt identified wanting to work on pitfall of self-worth by practicing positive self-talk and continuing in therapy. Benefited from group as pt learned to better identify and normalize potential barriers to improving mental health symptoms. Pt to continue IOP to challenge distorted thoughts, increase healthy coping, and prevent decompensation. Narrative Note: []
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
--- NOTE | 2023-09-09 10:05 | BH.SGPN.GN ---
Behaviors/Verbalizations/Mental Status: [] Eye contact is good. Motor activity is appropriate. Appearance is casual. Speech is Appropriate. Mood is euthymic. Affect is constricted. Thoughts are linear and logical. No evidence of psychosis. Client Response/Progress/Benefit: []Pt engaged participant AEB listening to others, engaging in activity, and providing feedback at times. Attentive during psychoeducation and provided insight into obstacles in the way of mental wellness. Pt shared with group current mental health reality and desired mental health reality. Stated coming to IOP as one step she is currently making to get closer to desired reality. Identified barriers to desired reality include: Toxic people, poor boundaries, high expectations, and past failure. Benefited from taking look at current mental health state and obstacles for progress. Pt to continue IOP to increase utilization of healthy coping skills, build confidence, and prevent decompensation.
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
--- NOTE | 2023-09-09 11:10 | BH.SGPN.GN ---
Behaviors/Verbalizations/Mental Status: [] Eye contact is good. Motor activity is appropriate. Appearance is casual. Speech is Appropriate. Mood is euthymic. Affect is congruent. Thoughts are linear and logical. No evidence of psychosis. Client Response/Progress/Benefit: []Pt responded well to session, actively engaged throughout. Provided input during discussion on what potential internal barriers may be keeping them from reaching their desired reality. Pt was an active participant throughout the interactive activity in which group members problem solved the various internal barriers each pt reports struggling with. Pt identified wanting to work on personal barrier of unrealistic expectations and shared plans to remind herself what is in her control and give herself jermain as a means of overcoming this barrier. Pt appeared to benefit from brainstorming skills to overcome internal barriers, as well as support of the group. Will continue in IOP tx to prevent decompensation, promote skill application, and further encourage use of behavior activation skills. ? Narrative Note: []
--- NOTE | 2023-09-12 10:15 | BH.SGPN.GN ---
Behaviors/Verbalizations/Mental Status: [] Eye contact is good. Motor activity is appropriate. Appearance is casual. Speech is Appropriate. Mood is anxious and euthymic. Affect is congruent. Thoughts are linear and logical. No evidence of psychosis. Client Response/Progress/Benefit: [] Client was attentive during interactive group discussions AEB by writing notes, asking questions, and sharing when prompted. Attentive during psychoeducation on the six types of boundaries (physical, emotional, intellectual, sexual, time, and material). Along with peers, pt contributed to interactive discussion identifying common challenges to setting and maintaining healthy boundaries which included; fear of other's response, guilt, fear of losing relationships, and resentment for having to establish the boundary in the first place. Client along with peers identified the benefits to setting boundaries. Client shared she struggles with setting boundaries because she has had past negative experiences when establishing a boundary, as well as struggles with guilt about doing so. Client benefited from increased awareness and insight on the importance/benefit to setting healthy boundaries. Will continue in IOP to improve daily functioning, increase healthy coping and self-compassion, and prevent decompensation. Narrative Note: []
--- NOTE | 2023-09-12 11:15 | BH.SGPN.GN ---
Behaviors/Verbalizations/Mental Status: []Pt alert and oriented, casually dressed and groomed. Eye contact good. Motor activity appropriate. Speech within normal limits. Affect congruent, mood euthymic. Thoughts linear, logical, no signs of hallucinations or delusions. Client Response/Progress/Benefit: []Pt responded well to session, engaged and contributing. Pt attentive during psychoeducation on the different boundary styles. Pt reports connecting most with porous boundary setting style and shared this has impacted her ability to consistently take care of her own mental health needs without feeling guilty about it. Group brainstormed various strategies for improving ability to establish and maintain healthy boundaries. Reported she wants to work on reminding herself she deserves to set boundaries and taking small steps when trying to establish a boundary. Appeared to benefit from increasing insight to boundary setting styles and the impacts on mental health. Will continue IOP tx to prevent decompensation, improve ability to challenge thought distortions, and increase healthy coping. Narrative Note: []
--- NOTE | 2023-09-12 14:46 | BH.MDN ---
Multi-Disciplinary Note Note 45-min Individual: Time Started:: 09:22 Date: 09/12/23 Purpose of session/treatment goals addressed:: Purpose of session was to address tx plan goal #1 obj #2 and goal #2 obj #1. Eye Contact:: Good (tearful when discussing negative core beliefs) Motor Activity:: Appropriate Appearance:: Casual Speech:: Appropriate Mood:: Euthymic and Anxious Affect:: Congruent Thoughts:: Linear, Logical and No evidence of hallucinations/delusions noted Staff Interventions:: thought challenging, psychoeducation on: (negative core beliefs), CBT techniques and strengths perspective Client Response:: Pt responded well to session, actively engaged throughout. Reported feeling anxious but excited today as she decided to reach out to an old friend over the weekend. Reported knowing this person from [place] and that they had previously been a positive support but when pt quit attending her childhood [place] they grew distant. Pt shared using opposite action and positive self-talk to follow-through with sending her a message online despite anxiety about doing so. Pt reported that her old friend responded positively and suggested they get together sometime. Pt described struggling with increased anxiety and self-doubt as she has struggled with maintaining relationships in the past. Identified thoughts of ?What if I?m ?too much? for her and she gets scared away??, ?What if I make a mistake??, ?What if I don?t know what to say or it?s not good enough??. Pt did well to identify that negative core beliefs stemming from past childhood experiences and criticism from her family are reinforcing these thoughts. Expressed fears that he family ?messed me up too much to be able to have a lasting friendship?. Therapist validated and normalize pt concerns, while also working with her to look at the evidence challenging these beliefs. Pt did well to identify that her relationship with her has lasted for several years, and she continues to have a positive relationship with her [id number] as well. 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 Shared that she would like to continue to remind herself of these strengths in order to further encourage expanding her social support net so as to reduce the likelihood she reaches back out to toxic family members out of loneliness. Risks/Concerns:: None noted, pt denies any SI, plan, or intent as of this date 09/12/23. Progress Toward Goals/Plan:: None noted, pt denies any SI, plan, or intent as of this date 09/12/23. Progress Toward Goals/Plan:: Progress noted AEB pt self-reports of improved mood and willingness to reach out o supports. Shared use of skills for managing anxiety in various social settings throughout the weekend as well, which is progress. Pt continues to report negative self-talk, inappropriate guilt, anger, and difficulties focusing on her own mental health due to ongoing ruminating thoughts on her recent decision to cut ties with her biological family. Pt recommended continued IOP tx to further improve self-confidence, increase healthy coping repertoire, and prevent decompensation. Time Stopped:: 10:04
== END 2023-09-13 23:59 ==
LOC: BHIOP 08:00
PROVIDERS: PCP Family Medicine; Referring Provider Psychiatry & Neurology Psychiatry; Visit Provider Psychiatry & Neurology Psychiatry
DX: F33.1 Major depressive disorder, recurrent, moderate (principal); F43.10 Post-traumatic stress disorder, unspecified; F41.1 Generalized anxiety disorder
CPT/HCPCS: S9480; 90832; 90834; 90837; 90853

== ENCOUNTER 2023-09-14 06:48 | Outpatient (RCR) | payer MEDICARE, MEDICAID, SELFPAY ==
[2023-09-14 00:52] VITALS: BP 136/92; PULSE 104
--- NOTE | 2023-09-15 09:00 | BH.SGPN.GN ---
Behaviors/Verbalizations/Mental Status: [Patient was alert and oriented, appropriately dressed and groomed. Eye contact was good, motor activity normal, speech within normal limits. Affect congruent, mood content. Thoughts linear, logical, no signs of hallucinations or delusions. Reviewed Patients symptom tracker and the patient reports depressed mood, anxiety/panic attacks, aggravation/irritation/anger, self-harm urges, and risk/thoughts of suicide within patients normal base level.] Client Response/Progress/Benefit: [Patient was engaged and open to the discussion. Patient reported her mood being ?excited but anxious?. The patients first win is that she has been giving herself more positive self-talk about being okay if people do not like her. She said she has cared about it her whole life and she just wants to be happy with herself for who she really is. The second win is also a stressor because her brother reached out to talk to her. The patient and her brother are not close so she is afraid that he will be mean to her but she is excited because she may make a connection with him.??Patient was interactive and respectful with other group members about their mental wins and stressors. Patient benefited from the discussion by listening to feedback and giving input on her peer?s stressors and mental health wins. Patient will continue with IOP treatment to help develop healthy skills, promote mood stability, and improve distress tolerance. ] Narrative Note: []
--- NOTE | 2023-09-15 10:15 | BH.SGPN.GN ---
Behaviors/Verbalizations/Mental Status: [] Eye contact is good. Motor activity is appropriate. Appearance is casual. Speech is Appropriate. Mood is anxious. Affect is congruent. Thoughts are linear and logical. No evidence of psychosis. Client Response/Progress/Benefit: [] Pt was an active participant in group discussions. Active participant in group activity on perspective. Participated during interactive group discussions in which peers worked together to define 'perspective' (i.e. how we look at things; what we focus on) and discuss how it can impact one's mental health. Group was able to to identify what can impact our perspective and gave examples such as; past experiences, emotions, feelings, thoughts, support system, upbringing, and current environment. Benefited from increased awareness and insight on the role of perspective on mental health. Will continue in IOP to prevent decompensation, improive functioning, and increase healthy coping. Narrative Note: []
--- NOTE | 2023-09-15 11:15 | BH.SGPN.GN ---
Behaviors/Verbalizations/Mental Status: []Pt alert and oriented, casually dressed and groomed. Eye contact good. Motor activity appropriate. Speech within normal limits. Affect congruent, mood euthymic. Thoughts linear, logical, no signs of hallucinations or delusions. Client Response/Progress/Benefit: []Pt was attentive and contributed to small group discussion. Pt completed strengths exploration worksheet, identifying sense of humor, common sense, and kindness as personal strengths. Pt able to acknowledge how these strengths are helping pt and can continue to help pt in mental health journey. Pt worked with group to identify strategies that can help increase utilization of personal strengths and how to challenge one?s perspective in general. Pt identified wanting to work on increasing positive self-talk and thought challenging to help challenge perspective. Benefited from identifying personal strengths and strategies for enhancing use of identified strengths to challenge perspective. Pt to continue IOP tx to promote mood stability, improve thought challenging and recognizing daily accomplishments, and increase self-compassion. Narrative Note: []
--- NOTE | 2023-09-16 09:00 | BH.SGPN.GN ---
Behaviors/Verbalizations/Mental Status: [Patient was alert and oriented, appropriately dressed and groomed. Eye contact was good, motor activity normal, speech within normal limits. Affect congruent, mood content. Thoughts linear, logical, no signs of hallucinations or delusions. Reviewed Patients symptom tracker and the patient reports depressed mood, anxiety/panic attacks, aggravation/irritation/anger, self-harm urges, and risk/thoughts of suicide within patients normal base level.] Client Response/Progress/Benefit: [Patient was engaged and open to the discussion. Patient reported her mood to be ?sad and excited?. The first win is that she went to the [employer] yesterday in [place] and did a tour. She stated she loved it there and loved all the paintings. The second win was that she is practicing speaking up more. The patients stressor is keeping the courage to continue coming and to continue to change. Patient was interactive and respectful with other group members about their mental wins and stressors. Patient benefited from the discussion by listening to feedback and giving input on her peer?s stressors and mental health wins. Patient will continue with IOP treatment to help develop healthy skills, promote mood stability, and improve distress tolerance. ] Narrative Note: []
--- NOTE | 2023-09-16 10:15 | BH.SGPN.GN ---
Behaviors/Verbalizations/Mental Status: []Pt alert and oriented, neatly dressed and groomed. Eye contact good. Motor activity appropriate. Speech within normal limits. Affect congruent, mood euthymic and anxious. Thoughts linear, logical, no signs of hallucinations or delusions. Client Response/Progress/Benefit: [] Pt was an active participant in activity and taking notes during group discussion. Attentive during psychoeducation on coping skills, why people use unhealthy coping skills, and how to replace unhealthy coping skills. Group came up with list of negative coping skills and pt identified several including isolating, avoiding, and shutting down. Group discussed the effects of how negative coping skills can impact mental health and reinforce negative thinking patterns. Participated in the group activity and made the connection that developing a strong base of healthy skills can help pt more effectively manage stressors. Benefited from increased understanding of unhealthy coping skills and the need for developing healthy internal and external coping skills. Pt will continue IOP tx to prevent decompensation, improve daily functioning, and gain healthy coping skills. ? Narrative Note: []
--- NOTE | 2023-09-19 10:15 | BH.SGPN.GN ---
Behaviors/Verbalizations/Mental Status: [] Eye contact is good. Motor activity is appropriate. Appearance is casual. Speech is Appropriate. Mood is anxious and dysthymic. Affect is congruent. Thoughts are linear and logical. No evidence of psychosis. Client Response/Progress/Benefit: [] Pt was an active participant in group discussions. Attentive during psychoeducation AEB by note taking and providing some input. Pt worked along with peers in small groups to define guilt, inappropriate guilt, and appropriate guilt. Interactive discussion on examples of both inappropriate and appropriate guilt. Pt identified a personal example of inappropriate guilt which was feeling guilty for setting a boundary with family and how this impacted their mental health. Benefited from increased awareness of guilt and the differences between appropriate and inappropriate guilt. Will continue in IOP to improve functioning, reduce self-deprecation, and increase healthy coping skills and self-care. Narrative Note: []
--- NOTE | 2023-09-19 11:15 | BH.SGPN.GN ---
Behaviors/Verbalizations/Mental Status: []Pt alert and oriented, neatly dressed and groomed. Eye contact good. Motor activity appropriate. Speech within normal limits. Affect congruent, mood stressed. Thoughts linear, logical, no signs of hallucinations or delusions. Client Response/Progress/Benefit: []Pt engaged participant AEB listening attentively to others and providing input throughout group. Pt worked with their small group to identify strategies to manage inappropriate guilt. Pt stated pt often feels inappropriate guilt when pt practices self-care or puts herself as a priority. Pt wants to work on combatting inappropriate guilt by sitting with the uncomfortable and challenging negative thoughts with facts. Pt seemed to benefit from learning about strategies to manage appropriate and inappropriate guilt. Pt to continue IOP to prevent decompensation, improve daily functioning, and reduce negative thinking patterns. Narrative Note: []
--- NOTE | 2023-09-19 15:38 | BH.MDN ---
Multi-Disciplinary Note Note 30-min Individual: Time Started:: 09:30 Date: 09/19/23 Purpose of session/treatment goals addressed:: Purpose of session was to address tx plan goal #1 and process recent stressor impacting mood. Eye Contact:: Good Motor Activity:: Appropriate Appearance:: Casual Speech:: Appropriate Mood:: Anxious and Depressed Affect:: Congruent Thoughts:: Linear, Logical and No evidence of hallucinations/delusions noted Staff Interventions:: thought challenging, CBT techniques, strengths perspective and goal setting Client Response:: Pt responded well to session, actively engaged throughout. Reported feeling low today after having a difficult weekend. Discussed that she had a lower stress tolerance and was more emotionally reactive as a result. Pt initially struggled with identifying the trigger; however, upon further discussion provided insight that she had bee overwhelmed and burnt out by her busy schedule on and Tuesday. Pt had attended group and then gone to [employer] and run a few errands with her [id number] both days. Shared this had been a lot for her socially and emotionally which she had not realized until her functioning began to suffer. Went on to indicate fears that her PTSD sx had been triggered while attending [employer], explaining thoughts and feelings of abandonment and rejection when someone left her table to speak with someone else. Disclosed anger upon returning home as she began to experience self-deprecating thoughts of ?I?m never going to be able to accomplish my dreams or do anything?. Able to recognize negative core beliefs based in past trauma reinforcing these thoughts. Shared fears that she is not ready for this type of socialization and may need to work on addressing PTSD prior to engaging in more social settings. Therapist provided emotional support and validation while gently challenging pt. Discussed the importance of positive self-talk, self-compassion, and finding skills to manage these trauma triggers rather than engage in avoidance to prevent reinforcing isolation and social anxieties. Pt disclosed feelings of apprehension but wanting to continue to challenge herself to step outside her comfort zone and gain more confidence. Pt receptive of plans to begin a daily affirmation or accomplishment journal, as well as challenging herself to practice self-care this week and return to [employer] on Tuesday rather than attending IOP groups. Risks/Concerns:: Pt denies any SI, plan, or intent as of this date 11/6/23. Pt did reports fears she is not taking her medications as prescribed and is confused as to what she is supposed to be taking. Willing to bring her medications in with her to review with therapist. Progress Toward Goals/Plan:: Progress remains variable. Pt continues to be open and actively engaged in both individual and group sessions. She reports trying implement what she is learning in treatment, but struggles with consistency and application of skills when triggered by something that reminds her of her past. Continues to struggle with significant rumination on healing from the relationship with her parents and self-doubt in her ability to do so. Continues to report relationship issues as a result. Willing to challenge herself to give [facility] another try after adjusting her schedule so she does not have as much planned on the day she is attending. Despite ongoing stressors, pt does report an overall improvement in mood and feels more capable of stepping outside her comfort zone as a result. Pt recommended continued IOP tx to further improve self-confidence, improve emotion regulation, and prevent decompensation. Time Stopped:: 10:06
--- NOTE | 2023-09-22 09:05 | BH.SGPN.GN ---
Behaviors/Verbalizations/Mental Status: [Patient was alert and oriented, appropriately dressed and groomed. Eye contact was good, motor activity normal, speech within normal limits. Affect congruent, mood content. Thoughts linear, logical, no signs of hallucinations or delusions. Reviewed Patients symptom tracker and the patient reports depressed mood as moderate/severe and anxiety/panic attacks, aggravation/irritation/anger and self-harm urges as severe. The patient does not report symptoms of risk/thoughts of suicide. This is above baseline for the patient, a therapist will check in with the patient to ensure safety.] Client Response/Progress/Benefit: [Patient was engaged and open to the discussion. Patient reported her mood as being ?hurt, broken, and anxious?. The patient stated her first win is also her stress and that she is finally contemplating blocking her family from contacting period. She stated they got a hold of her yesterday wanting to know why she is distant, and this created a lot of anxiety. Her second win was that despite all these negative feelings she is still trying to ?make others laugh? and keep her spirits up. Patient was interactive and respectful with other group members about their mental wins and stressors. Patient benefited from the discussion by listening to feedback and giving input on his peer?s stressors and mental health wins. Patient will continue with IOP treatment to help develop healthy skills, promote mood stability, and improve distress tolerance. ] Narrative Note: []
--- NOTE | 2023-09-22 10:10 | BH.SGPN.GN ---
Behaviors/Verbalizations/Mental Status: []Pt alert and oriented, casually dressed and groomed. Eye contact fair. Motor activity appropriate. Speech within normal limits. Affect constricted, mood anxious and depressed. Thoughts linear, logical, no signs of hallucinations or delusions. Client Response/Progress/Benefit: [] Pt engaged in session AEB listening attentively to others and providing insight to group discussion. Pt engaged in activity, able to connect how it can be uncomfortable and difficult to accept when things are out of one?s own control. Pt worked with group to identify what things in life can be hard to accept. Group identified things hard to accept as: of a loved one, body image, loss of relationship, mental health diagnosis, other?s behaviors, and past decisions. Pt shared she personally is struggling with accepting difficulty functioning and mental health. Pt seemed to benefit from increased awareness of importance of acceptance. Pt to continue IOP tx to prevent decompensation, improve distress tolerance, and improve healthy coping.
--- NOTE | 2023-09-22 13:15 | BH.MDN_ITS ---
Multi-Disciplinary Note Note 45-min Individual: Time Started:: 11:30 Date: 09/22/23 Purpose of session/treatment goals addressed:: Pt got tearful during 2nd group today and this therapist was asked to speak with patient. Eye Contact:: Poor Motor Activity:: Appropriate Appearance:: Casual Speech:: Appropriate Mood:: Depressed Affect:: Flat Thoughts:: Linear, Logical and No evidence of hallucinations/delusions noted Staff Interventions:: psychoeducation on: (boundary setting, trauma t adult basic education manager) and other (support, allowed pt to process and vent emotions/thoughts) Client Response:: Pt tearful for a majority of the session. Shared that group topic today was too much. The topic today was acceptance. During the group a discussion was had regarding acceptance of toxic and unhealthy family members which is currently a significant stressor. Elaborated on her strained relationship with her parents. According to patient she was given an ultimatum several months ago in which family stated they would only meet with her if her was not around because he sticks up for me and doesn't put up with their bullshit. Pt choose her and has not spoken with family since. Her family reached out this week requesting to talk with her for clarification which appears to be a type of trauma trigger which set in motion decompensation. She met with her outpatient therapist earlier this week and boundary setting has been an ongoing issue they have discussed. Risks/Concerns:: no risks or concerns noted. At one point she was concerned that her parents would just show up at her house. We discussed if she had any concerns she could call police who would most likely escort parents off the property. Progress Toward Goals/Plan:: Pt calmed after processing and problem solving. Responded well to normalizing her frustrations and processing her thoughts. She is ambivalent regarding her parents and is uncertain if she wants to completely shut them out or simply set firm boundaries. Struggling as she has never set boundaries in the past with her family. Parents also appear to be a type of trauma trigger for her which sets in motion feelings of being unsafe, anxious, and uncertain. Towards end of the session she was not tearful and plans on attending IOP tomorrow. Its helpful to be here. Time Stopped:: 12:15
--- NOTE | 2023-09-23 09:00 | BH.SGPN.GN ---
Behaviors/Verbalizations/Mental Status: [] Eye contact is good. Motor activity is appropriate. Appearance is casual. Speech is Appropriate. Mood is anxious. Affect is congruent. Thoughts are linear and logical. No evidence of psychosis. Reviewed daily check in sheet and no reports of suicidal ideations or intent. Client Response/Progress/Benefit: [] Pt was an active participant in group discussion. Attentive. Daily symptom tracker notes 11/18 for depression. Significant improved in mood since yesterday. Pt discussed exacerbation of symptoms yesterday related to relationships with her parents.She choose to reach out to her parents yesterday and proactive assertive communication regarding her concerns/needs. She was pleasantly surprised at how the conversations went and noted that her mother acknowledged her previous mistakes and he desire to improve on herself and their relationship. Pt reports feeling encouraged today with increased confidence in herself to address conflict and communicate effectively. I was assuming the worst which led to panic, fear, and negative thoughts however when insight that when she took action she felt better. She has self-doubt that she can continue utilizing skills without IOP. Progress noted per pt report. Benefited from group support, encouragement, and feedback. Will continue in IOP to prevent decompensation, increase healthy coping, and to improve functioning. Narrative Note: []
--- NOTE | 2023-09-23 10:15 | BH.SGPN.GN ---
Behaviors/Verbalizations/Mental Status: [Patient was alert and oriented, casually dressed and groomed. Eye contact good, motor activity normal, speech within normal limits. Affect congruent, mood content. Thoughts linear, logical, no signs of hallucinations or delusions. ] Client Response/Progress/Benefit: [Patient was open and participated in group discussions. Attentive during psychoeducation on behavior activation. Participated during the activity. Interactive group discussion on behavior activation in which group verbalized different up and down activities and how they can positively or negatively impact their actions. Patient stated some of her ?up? activities are doing art, playing with animals, and listening to music. Patient benefited from increased awareness of stages of changes and how emotions impact change. Will continue in IOP to promote gains, further combat distorted thinking, and improve daily functioning.] Narrative Note: []
--- NOTE | 2023-09-23 11:10 | BH.SGPN.GN ---
Behaviors/Verbalizations/Mental Status: [] Eye contact is fair. Motor activity is appropriate. Appearance is casual. Speech is Appropriate. Mood is anxious. Affect is congruent. Thoughts are linear and logical. No evidence of psychosis. Client Response/Progress/Benefit: [] Pt responded well to session, attentive and engaged in group discussions and activity. Group discussed values and the benefits that knowing one's values can have on one's mental health. Pt explored own values and identified personal top values. Pt stated important value is her mental/emotional health. Client stated her goals to meet this value are to challenge her negative thoughts, seek fun things, and work on being more independent. Pt appeared to benefit from exploring values and creating a weekly goal. Will continue in IOP to continue use of healthy coping skills, challenge distortions, and prevent decompensation.
--- NOTE | 2023-09-28 10:15 | BH.SGPN.GN ---
Behaviors/Verbalizations/Mental Status: [Patient was alert and oriented, casually dressed and groomed. Eye contact good, motor activity normal, speech within normal limits. Affect congruent, mood content. Thoughts linear, logical, no signs of hallucinations or delusions. ] Client Response/Progress/Benefit: [Patient was open and participated in group discussions. Attentive during psychoeducation on growth mindset. Participated during the activity. Interactive group discussion on growth mindset in which group verbalized their current fixed mindsets and how they affect their mental health. Patient shared that one of her fixed thoughts was ?I am unable to do and learn stuff?. Patient benefited from increased awareness of growth mindset and fixed thoughts and how fixed thoughts impact their mental health. Will continue in IOP to promote gains, further combat distorted thinking, and improve daily functioning.] Narrative Note: []
--- NOTE | 2023-09-28 11:10 | BH.SGPN.GN ---
Behaviors/Verbalizations/Mental Status: []Pt alert and oriented, neatly dressed and groomed. Eye contact good. Motor activity appropriate. Speech within normal limits. Affect congruent, mood euthymic. Thoughts linear, logical, no signs of hallucinations or delusions. Client Response/Progress/Benefit: [] Pt was an active participant during activity and discussion AEB providing some input, connecting with peers, as well as taking notes throughout. Pt did well to engage as group worked on identifying characteristics and benefits of adopting a growth mindset. Worked with fellow participants in reframing the example fixed thoughts into growth mindset thoughts. Pt worked on changing own fixed thought of ?I?m not good enough? to growth thought of ?I?m capable of doing things and learning.? Benefitted from discussing benefits of growth mindset and brainstorming strategies for prompting growth-mindset. Pt appeared to benefit from working in small groups to challenge own thoughts and help peers. Pt will continue IOP tx to promote mood stability, reinforce healthy coping skills, and improve daily functioning. Narrative Note: []
--- NOTE | 2023-09-28 11:54 | PCM.BH.PN ---
Progress Note Progress Note: And history of Present Illness/Interim History: The patient is a 38-year-old female with a history of depression, PTSD and mild developmental delay who is seen in follow-up at the [facility] behavioral health IOP. I last saw the patient 1 month ago and at that time Lamictal was added to the medication regimen. The patient feels that her mood is better lately and she is feeling less depressed and per staff her scores have decreased by 50%. She feels she has learned valuable skills in the program. There is some question about her medication compliance and the patient states that she forgets when her medications run out and then she just stops taking them and does not refill them. She ran out of her Paxil a few weeks ago and never refilled it for some reason that she seems unable to explain. She had not had any panic attacks for several weeks and now had 1 last night possibly due to running out of the Paxil. She denies any energy drink or Feeding use except a few bottles of small bottles of Pepsi per day. She denies passive thoughts of , suicidal ideation, plan for suicide, homicidal ideation, hallucinations or delusions. She continues to have GI issues and sometimes vomits daily from them and this is why the Wellbutrin was discontinued a month ago. Current Psychiatric Medications: [] Paxil 10 mg p.o. daily (ran out of a few weeks ago); Wellbutrin discontinued 6 weeks ago; Lunesta 2 mg p.o. nightly; prazosin 1 mg p.o. nightly; hydroxyzine 25 mg p.o. daily; Lamictal starter pack started 1 month ago. Patient is unsure of what medication she is actually taking and she was told to bring the bottles in but she did not bring them in today so she will do this next week so we can figure out what medication she is actually taking because she seems uncertain. Mental Status Examination: [] Patient is a 38-year-old female who appears normal for stated age and is overweight and wears glasses. She is ambulatory with a normal gait and is casually dressed and groomed with good hygiene. She has no psychomotor agitation or retardation. She is cooperative during the interview. Eye contact is good and speech is normal rate and rhythm and fluent with no pressure. Mood is mildly depressed. Affect is minimally constricted. Thought process is goal-directed and organized. Thought content: There is evidence of missing doses or running out of medication and patient is unclear how this happens. There is no evidence of passive thoughts of , suicidal ideation, homicidal ideation, plan for suicide, hallucinations or delusions. Reality testing is intact. Intelligence is average or little below average. Judgment is intact. Insight is limited. Impulsivity is moderate. Diagnoses: [] 1. Major depressive disorder, recurrent, moderate 2. PTSD 3. Generalized anxiety disorder 4. Cluster B traits 5. Limited primary support and marital issues Plan: [] The patient will continue the IOP at [facility] as the structure, support, education and group therapy will hopefully prevent worsening of the patient's symptoms. She felt safe during the interview and if it anytime she does not feel safe she will let us know or go to the emergency room. Long discussion was had about how the patient takes her medications and it seems that the difficulty is that when she runs out of the medication she does not refill it or put it in her scheduled medication containers that she makes out 1 week at a time. The patient agrees to bring her bottles in so we can figure out what she is actually taking. She says also that a person from her counseling center is coming to the house to help with her medication compliance issues also. The patient's Paxil was refilled at 10 mg p.o. daily and prescription is sent in for this and she will restart this. She will continue the Lamictal if she is taking it now as ordered last visit and her other medications but we need to find out exactly what she is taking and she needs to bring bottles in so we can be sure of that. She will continue to follow-up with outpatient providers and I will see the patient in follow-up in 1 week.
--- NOTE | 2023-09-28 14:40 | BH.MDN ---
Multi-Disciplinary Note Note 45-min Individual: Time Started:: 09:13 Date: 09/28/23 Purpose of session/treatment goals addressed:: To review pt's application of healthy coping skills and to identify strategies to promote long-term gains. Eye Contact:: Good Motor Activity:: Appropriate Appearance:: Casual Speech:: Appropriate Mood:: Euthymic Affect:: Full and Congruent Thoughts:: Linear, Logical and No evidence of hallucinations/delusions noted Staff Interventions:: CBT techniques, discharge planning, strengths perspective and other (reviewed coping skills and continued goals for outpatient tx.) Client Response:: Pt responded well to session, open to meeting with therapist. Pt shared she is feeling much better than she did months ago and pt feels that she is applying coping skills outside of IOP. Pt reports though she knows she has several areas to continue to focus on in outpatient counseling, she is proud of the progress she has made thus far. Pt reported that she was able to successfully reconnect with her mother without risking violating her own boundaries or feeling emotionally taken advantage of. Shared the experience had been positive as she had been able to advocate for her needs as well as be receptive to her mother?s needs and concerns. Reports they were able to come up with a plan to continue to have a relationship but minimize the risk of triggering one another. Shared plans to meet in public places for a while as well as discussed topics of conversation to avoid. Reports that having this discussion with her mother helped to reduce a lot of her depressive sx and feelings of loneliness. Pt went on to reflect on several additional areas of progress including improved self-confidence and positive self-talk, reduced fear of failure, and increased communication with her . Pt receptive to reviewing coping strategies and self-care practices to promote long-term gains. Pt identified importance of continuing to work with her outpatient providers on maintaining firm boundaries, improving distress tolerance and healthy coping skills, as well as further improving social support network. Risks/Concerns:: No risk for SI noted. No report of thoughts of . Progress Toward Goals/Plan:: Pt continues to make progress towards her tx goals AEB pt's self-report of increased boundary setting and emotion regulation, less negative thinking patterns, and improved daily functioning. Pt feels like she will be ready for discharge this Tuesday. Pt is still unsure when she will return to [facility] but is hoping to continue to engage in their support groups. Pt will continue IOP tx for the remainder of the week to maintain gains and reinforce healthy coping skills. Time Stopped:: 09:56
--- NOTE | 2023-09-29 09:05 | BH.SGPN.GN ---
Behaviors/Verbalizations/Mental Status: []Eye contact is good. Motor activity is appropriate. Appearance is disheveled. Speech is Appropriate. Mood is euthymic. Affect is full. Thoughts are linear and logical. No evidence of psychosis. Reviewed daily check in sheet and no reports of suicidal ideations or intent. Client Response/Progress/Benefit: []Pt responded well to session, attentive and providing encouragement to peers throughout session. Pt reports feeling enlightened this morning and shared that tomorrow is her last day of IOP and pt can see a lot of growth. Pt stated she has noticed she personalizes a lot less than she used to and pt is trying to focus on what is in her control. Pt described this as creating my own atmosphere which to pt means not taking responsibility for other people's emotions and mental health. Pt recently communicated with her parents and set a boundary which went well. Pt is anxious about maintaining this boundary, but pt received a lot of guidance from peers on how to reinforce boundaries. Pt appeared to benefit from these ideas. Pt will continue IOP tx for one more session to reinforce healthy coping skills and establish aftercare. Narrative Note: []
--- NOTE | 2023-09-29 10:10 | BH.SGPN.GN ---
Behaviors/Verbalizations/Mental Status: [] Eye contact is good. Motor activity is appropriate. Appearance is casual. Speech is Appropriate. Mood is content. Affect is congruent. Thoughts are linear and logical. No evidence of psychosis. Client Response/Progress/Benefit: [] Pt was an active participant in group discussions. Attentive during psychoeducation on the 4 communication styles (Passive, Passive-Aggressive, Aggressive, and Assertive) and the obstacles to effective communication. Contributed during interactive discussion on the benefits of communicating effectively which included: getting needs met, building connection, decreases stress, improved relationships, increased motivation, and increased understanding of others. Worked well in small group in which pt and peers identified the benefits and disadvantages to the different communication styles. Benefited from increased understanding of communication styles and how these can impact effective communication. Will continue in IOP to promote use of healthy coping skills, continue challenging negative/distorted thoguhts, and prevent decompensation.
--- NOTE | 2023-09-29 11:15 | BH.SGPN.GN ---
Behaviors/Verbalizations/Mental Status: []Pt alert and oriented, neatly dressed and groomed. Eye contact good. Motor activity appropriate. Speech within normal limits. Affect congruent, mood euthymic. Thoughts linear, logical, no signs of hallucinations or delusions. Client Response/Progress/Benefit: [] Pt responded well to session AEB Pt listening attentively to others and providing input during group discussion on the pay offs and costs of the different communication styles. Pt able to connect how current communication style impacts mental health. Pt engaged in activity. Connected with peers comments about importance of using assertive communication. Pt reported she wants to work on describing the facts of a situation objectively as well as expressing her emotions more when communicating with other. Pt seemed to benefit from increasing awareness of healthy strategies to improve communication. Will continue IOP tx to prevent decompensation, maintain mood stability, and promote coping skill application. Narrative Note: []
--- NOTE | 2023-09-30 09:00 | BH.SGPN.GN ---
Behaviors/Verbalizations/Mental Status: [Patient was alert and oriented, appropriately dressed and groomed. Eye contact was good, motor activity normal, speech within normal limits. Affect congruent, mood content. Thoughts linear, logical, no signs of hallucinations or delusions. Reviewed Patients symptom tracker and the patient does not report symptoms in depression, anxiety/panic attacks, agitation/irritability/anger, self-harm urges, or thoughts/ risk of suicide. ] Client Response/Progress/Benefit: [Patient was engaged and open to the discussion. Patient reported her mood to be ?excited?. Patient shared that she is graduating from the program today. The patients second win is that she is proud of herself for coming and completing the program and getting the help that she needed. Patient stated she now believes she is worth giving herself the help. Patient stated her stressor is that she is trying to figure out how to decorate her home the way she wants to. Patient was interactive and respectful with other group members about their mental wins and stressors. Patient benefited from the discussion by listening to feedback and giving input on her peer?s stressors and mental health wins. Patient is discharging today and will maintain healthy skills, mood stability, and distress tolerance.] Narrative Note: []
--- NOTE | 2023-09-30 10:10 | BH.SGPN.GN ---
Behaviors/Verbalizations/Mental Status: []Pt alert and oriented, casually dressed and groomed. Eye contact fair. Motor activity appropriate. Speech within normal limits. Affect constricted, mood dysthymic. Thoughts linear, logical, no signs of hallucinations or delusions. Client Response/Progress/Benefit: [] Pt receptive to session AEB contributing to small group discussion, as well as listening attentively to others, and taking notes. Worked with group to brainstorm the positive and negative aspects of stress on physical and mental health. Group did well to identify the benefits of stress as well as the impact of distress on performance, relationships, and mental health. Pt identified their personal top stressors as: physical health, work, and money concerns. Pt seemed to benefit from increased awareness of current stressors and impact stress has on mental health. Recommended to continue IOP tx to continue use of healthy coping skills, improve positive thinking, and prevent decompensation.
--- NOTE | 2023-09-30 10:15 | BH.SGPN.GN ---
Behaviors/Verbalizations/Mental Status: [Patient was alert and oriented, casually dressed and groomed. Eye contact good, motor activity normal, speech within normal limits. Affect congruent, mood content. Thoughts linear, logical, no signs of hallucinations or delusions. ] Client Response/Progress/Benefit: [Patient was open and participated in group discussions. Attentive during psychoeducation on stress. Participated during the activity. Interactive group discussion on stress in which group verbalized their current stresses in their lives and if certain stressors were larger than others. Patient stated she thinks ?what?s the point? when she is stressed. Patient benefited from increased awareness of the effects of stress on their mental health. Will continue in IOP to promote gains, further combat distorted thinking, and improve daily functioning.] Narrative Note: []
--- NOTE | 2023-09-30 11:15 | BH.SGPN.GN ---
Behaviors/Verbalizations/Mental Status: []Pt alert and oriented, neatly dressed and groomed. Eye contact good. Motor activity appropriate. Speech within normal limits. Affect congruent, mood euthymic. Thoughts linear, logical, no signs of hallucinations or delusions. Client Response/Progress/Benefit: []Pt was an active participant in group discussions and experiential activity. Was able to identify the connection between the experimental activity and utilization of stress management skills. Attentive during psychoeducation on the 4 A's (Avoid, adapt, alter, accept) of coping with stress as well as strategies to identify stressors in which one has no control, little control, or a great deal of control over. Pt shared plans to utilize the skill of acceptance by working on self-forgiveness. Benefited from increased awareness of stress management strategies. Will discharge from IOP tx today as pt has accomplished her tx goals and no longer meets criteria for IOP level of care. ? Narrative Note: []
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
== END 2023-09-30 12:03 | disposition home or self-care (01) ==
LOC: BHIOP 06:48
PROVIDERS: PCP Family Medicine; Referring Provider Psychiatry & Neurology Psychiatry; Visit Provider Psychiatry & Neurology Psychiatry
DX: F33.1 Major depressive disorder, recurrent, moderate (principal); F43.10 Post-traumatic stress disorder, unspecified; F41.1 Generalized anxiety disorder
CPT/HCPCS: S9480; 90832; 90834; 90853

== ENCOUNTER → 2024-03-01 | Outpatient (CLI) | payer MEDICARE, MEDICAID, SELFPAY | END | disposition home or self-care (01) | LOC: SL 19:55 | PROVIDERS: PCP Family Medicine; Referring Provider Family Medicine; Visit Provider Family Medicine | DX: G47.19 Other hypersomnia (principal) | CPT/HCPCS: 95810 ==

== ENCOUNTER → 2025-01-24 | Outpatient (CLI) | payer MEDICARE, MEDICAID, SELFPAY ==
--- NOTE | 2025-01-24 12:32 | NM_ITS ---
PROCEDURE: GASTRIC EMPTYING STUDY REASON FOR EXAM: GASTROPARESIS Nausea and vomiting. TECHNIQUE: A mixture of oatmeal and 1.2 mCi of technetium labeled sulfur colloid was ingested by the patient. RADIOPHARMACEUTICAL: 1.2 mCi of technetium labeled sulfur colloid. COMPARISON: None. FINDINGS: 66% of the radiopharmaceutical exited the stomach at 60 minutes. This is a normal study. NM/Gastric Emptying Study IMPRESSION: Normal gastric emptying study. Reading Location: [id number]
== END | disposition home or self-care (01) ==
LOC: NM 12:28
PROVIDERS: PCP Family Medicine; Referring Provider Internal Medicine Gastroenterology; Visit Provider Internal Medicine Gastroenterology
DX: K31.84 Gastroparesis (principal)
CPT/HCPCS: 78264; A9541

== ENCOUNTER 2025-03-25 08:00 | Outpatient (RCR) | payer MEDICARE, MEDICAID, SELFPAY ==
--- NOTE | 2025-03-25 09:05 | BH.SGPN.GN ---
Behaviors/Verbalizations/Mental Status: [] Eye contact is good. Motor activity is appropriate. Appearance is casual. Speech is Appropriate. Mood is anxious and depressed. Affect is congruent. Thoughts are linear and logical. No evidence of psychosis. Reviewed daily check in sheet and no reports of suicidal ideations or intent. Client Response/Progress/Benefit: [] Pt participated at times during the group discussion. Symptom tracker notes 5/5 for irritability, 4/5 for anxiety as well as depression. Reports 3/5 for self-harm urges. This was pt?s first day in [facility] and she briefly introduced herself. ? I have to learn to become more comfortable with my mental health?. Shared struggles with depression and anxiety which are impacting her overall functioning. Feels overwhelmed. Group provided feedback and advice for her first day/week in [facility] which was beneficial. Will continue in [facility] to prevent decompensation, increase healthy coping, and improve functioning. Narrative Note: []
--- NOTE | 2025-03-25 09:05 | BH.SGPN.GN ---
Behaviors/Verbalizations/Mental Status: [] Eye contact is good. Motor activity is appropriate. Appearance is casual. Speech is Appropriate. Mood is anxious and depressed. Affect is congruent. Thoughts are linear and logical. No evidence of psychosis. Reviewed daily check in sheet and no reports of suicidal ideations or intent. Client Response/Progress/Benefit: [] Pt participated at times during the group discussion. Symptom tracker notes 5/5 for irritability, 4/5 for anxiety as well as depression. Reports 3/5 for self-harm urges. This was pt?s first day in [facility] and she briefly introduced herself. ? I have to learn to become more comfortable with my mental health?. Shared struggles with depression and anxiety which are impacting her overall functioning. Feels overwhelmed. Group provided feedback and advice for her first day/week in [facility] which was beneficial. Will continue in [facility] to prevent decompensation, increase healthy coping, and improve functioning. Narrative Note: []
--- NOTE | 2025-03-25 10:10 | BH.SGPN.GN ---
Behaviors/Verbalizations/Mental Status: [] Eye contact is good. Motor activity is appropriate. Appearance is casual. Speech is Appropriate. Mood is depressed. Affect is congruent. Thoughts are linear and logical. No evidence of psychosis. Client Response/Progress/Benefit: [] Pt was an active participant in group discussions. Attentive during psychoeducation on the 4 communication styles (Passive, Passive-Aggressive, Aggressive, and Assertive) and the obstacles to effective communication. Contributed during interactive discussion on the benefits of communicating effectively. Worked well with peers to identify the benefits and disadvantages to the different communication styles. Pt believes that she is primarily passive and aggressive and gave insight that she can be aggressive when feeling invalidated or in certain environments/people. Benefited from increased understanding of communication styles and how these can impact effective communication. Will continue in IOP to promote healthy coping, challenge distortions, and prevent decompensation. Narrative Note: []
--- NOTE | 2025-03-25 11:05 | BH.MDN ---
Multi-Disciplinary Note Note 60-min Individual: Time Started:: 11:05 Date: 03/25/25 Purpose of session/treatment goals addressed:: Utilized the session to gather psychosocial history, current symptoms, goals, and overall functioning. Eye Contact:: Fair Motor Activity:: Appropriate Appearance:: Casual Mood:: Anxious and Depressed Affect:: Congruent Thoughts:: Linear, Logical and No evidence of hallucinations/delusions noted Staff Interventions:: rapport building, treatment planning, goal setting and other (Psychosocial history. ) Client Response:: According to patient she entered [facility] treatment due to spiraling mood in the past several months. Due to mental health and medical issues (worsening fibromyalgia) she is struggling to complete ADLs, daily responsibilities, and function. Recently quit her job as it was too overwhelming. Reports low energy and motivation. Increased depression and frequent panic attacks. How am I suppose to live like this?. Reports sitting alone throughout the day feeling sad and worthless. How am I suppose to take care of my house and if I can't even care for myself. Pt's has cerebral palsy. I'm not able to cope with life. She describes a loss of independence since worsening fibromyalgia. Endorses poor sleep, increased appetite, worthlessness, hopelessness, isolation, avoidance, and panic attacks. Denies active SI, plan, or intent. No hx of attempts. Denies HI or psychosis. Denies substance abuse. Medication compliant. Linked with outpatient counseling and case management. Refer to psychosocial assessment for further detail. Risks/Concerns:: No risks or concerns noted. Progress Toward Goals/Plan:: No progress noted as this was her first day in [facility]. Pt had completed [facility] in 2022 and repots it was helpful, however I forgot all my coping skills. Exacerbation of fibromyalgia (brain fog, body pains, etc) has impacted mental health and overall functioning. The smallest tasks are perceived to be daunting which has resulted in isolation, avoidance, quitting her job, struggling with daily tasks, guilt, and feeling worthless. Worry and anxiety often lead to panic attacks. Life is terrible. What's the point of life if you can't do anything. Will continue in IOP to prevent decompensation, increase healthy coping, and improve functioning. Time Stopped:: 12:00
--- NOTE | 2025-03-25 11:05 | BH.MDN ---
Multi-Disciplinary Note Note 60-min Individual: Time Started:: 11:05 Date: 03/25/25 Purpose of session/treatment goals addressed:: Utilized the session to gather psychosocial history, current symptoms, goals, and overall functioning. Eye Contact:: Fair Motor Activity:: Appropriate Appearance:: Casual Mood:: Anxious and Depressed Affect:: Congruent Thoughts:: Linear, Logical and No evidence of hallucinations/delusions noted Staff Interventions:: rapport building, treatment planning, goal setting and other (Psychosocial history. ) Client Response:: According to patient she entered [facility] treatment due to spiraling mood in the past several months. Due to mental health and medical issues (worsening fibromyalgia) she is struggling to complete ADLs, daily responsibilities, and function. Recently quit her job as it was too overwhelming. Reports low energy and motivation. Increased depression and frequent panic attacks. How am I suppose to live like this?. Reports sitting alone throughout the day feeling sad and worthless. How am I suppose to take care of my house and if I can't even care for myself. Pt's has cerebral palsy. I'm not able to cope with life. She describes a loss of independence since worsening fibromyalgia. Endorses poor sleep, increased appetite, worthlessness, hopelessness, isolation, avoidance, and panic attacks. Denies active SI, plan, or intent. No hx of attempts. Denies HI or psychosis. Denies substance abuse. Medication compliant. Linked with outpatient counseling and case management. Refer to psychosocial assessment for further detail. Risks/Concerns:: No risks or concerns noted. Progress Toward Goals/Plan:: No progress noted as this was her first day in [facility]. Pt had completed [facility] in 2022 and repots it was helpful, however I forgot all my coping skills. Exacerbation of fibromyalgia (brain fog, body pains, etc) has impacted mental health and overall functioning. The smallest tasks are perceived to be daunting which has resulted in isolation, avoidance, quitting her job, struggling with daily tasks, guilt, and feeling worthless. Worry and anxiety often lead to panic attacks. Life is terrible. What's the point of life if you can't do anything. Will continue in IOP to prevent decompensation, increase healthy coping, and improve functioning. Time Stopped:: 12:00
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
--- NOTE | 2025-03-25 15:20 | BH.COMM_ITS ---
Communication Note Communication with Client Communication Note: Met with pt to complete initial paperwork and administer the CSSR-S screening and risk assessment recent since last IOP admission in August 2023. Pt is a mild risk as pt denies thoughts of and suicidal ideations within the past month. Pt does have a history of suicidal ideations and self-harm but none since last admission. Pt denies any hospitalizations for mental health since last admission. No access to weapons. Pt is future oriented. Discussed case with Dr. Peterson and pt will be admitted to [facility] tx with a diagnosis of MDD, recurrent, moderate, without psychosis F 33.1
--- NOTE | 2025-03-25 15:20 | BH.COMM_ITS ---
Communication Note Communication with Client Communication Note: Met with pt to complete initial paperwork and administer the CSSR-S screening and risk assessment recent since last IOP admission in August 2023. Pt is a mild risk as pt denies thoughts of and suicidal ideations within the past month. Pt does have a history of suicidal ideations and self-harm but none since last admission. Pt denies any hospitalizations for mental health since last admission. No access to weapons. Pt is future oriented. Discussed case with Dr. Peterson and pt will be admitted to [facility] tx with a diagnosis of MDD, recurrent, moderate, without psychosis F 33.1
--- NOTE | 2025-03-26 09:05 | BH.SGPN.GN ---
Behaviors/Verbalizations/Mental Status: [] ?Eye contact is good. Motor activity is appropriate. Appearance is casual. Speech is Appropriate. Mood is euthymic. Affect is congruent. Thoughts are linear and logical. No evidence of psychosis. Reviewed daily check in sheet and no reports of suicidal ideations or intent. Client Response/Progress/Benefit: [] ?Pt was an active participant in group discussions. Attentive. Did well to identify 2 mental health wins including using opposite action to get out of bed this morning despite sleeping in longer than she planned, additional win noted as prepping her breakfast for the rest of the week. Went on to describe finding it helpful when she meal preps as this saves time in the mornings. Stressor noted as adjusting to the group environment and balancing IOP with daily home tasks. Progress noted. Benefited from group support, encouragement, and feedback. Will continue in IOP to prevent decompensation, promote mood stability, and increase healthy coping consistency. Narrative Note: []
--- NOTE | 2025-03-26 10:05 | BH.SGPN.GN ---
Behaviors/Verbalizations/Mental Status: [] Eye contact is good. Motor activity is appropriate. Appearance is casual. Speech is Appropriate. Mood is anxious. Affect is congruent. Thoughts are linear and logical. No evidence of psychosis. Client Response/Progress/Benefit: [] Pt was engaged and participating throughout, providing input and taking notes. Attentive during psychoeducation on anxiety and cognitive triangle. Participated in an interactive discussion on defining anxiety and identifying cognitive and physiological symptoms of anxiety. The group discussed helpful vs harmful anxiety. Pt identified their physical/physiological signs of anxiety which includes:headaches, restlessness, shortness of breath, and poor sleep Benefited from increased awareness and insight on anxiety and its impact. Will continue in IOP to prevent decompensation, increase healthy coping skills, and improve functioning. Narrative Note: []
--- NOTE | 2025-03-26 11:10 | BH.SGPN.GN ---
Behaviors/Verbalizations/Mental Status: []Pt alert and oriented, casually dressed and groomed. Eye contact good. Motor activity appropriate. Speech within normal limits. Affect congruent, mood anxious. Thoughts linear, logical, no signs of hallucinations or delusions. Client Response/Progress/Benefit: [] Pt was an active participant AEB pt providing input and listening attentively to peers. Attentive during psychoeducation on mindfulness coping skills and their impact on reducing anxiety and improving overall mental health wellness. Group was able to identify self-soothing and mind-based coping skills which included: 5-senses, meditation, deep breathing, TIPP, thought challenging, categories, and progressive muscle relaxation. Pt also participated with peers in practicing T.I.P.P during session. Pt would like to work on using more of the 5-senses and deep breathing. Appeared to benefit from increasing repertoire of anxiety reduction skills. Pt will continue IOP to prevent decompensation, improve daily functioning, and increase use of healthy coping skills. Narrative Note: []
--- NOTE | 2025-03-27 09:00 | BH.NA_ITS ---
Physical Data Vital Signs Pulse Rate: 102 Blood Pressure: 124/72 Height/Weight Height: 1.68 m Weight:: 92.079 kg Weight in Pounds: 203.0 lbs Current Medication Compliance Medication Compliance Do you take your medication as prescribed?: Yes Nutritional History Appetite Nutritional Instructions: Describe your appetite:: Fair Additional nutritional information:: Client states she has noticed some weight g ain. Client states she has had issues with bloating, nausea, constipation, and diarrhea since she was a kid and is on many medications for GI. Functional Assessment Sleep Pattern Describe any problems with sleeping: Client states she has been sleeping 2-3 hours per night. Sensory/Communication Assess Vision Problems Do you have any vision problems?: Glasses Communication Problems Do you have difficulty understanding what people are saying?: No Medical Problems/History Cardiac Conditions Cardiovascular: Hypertension, Hyperlipidemia and Other (See comments) (history of brain aneurysm- had a rupture in 2013, had 4-5 other aneurysms coiled) Neurological Conditions Neurological: Headaches and Seizures (history of seizures, has been on medication for seizures in the past but not in a long time. Client does regularly see a neurologist.) Gastrointestinal Conditions Gastrointestinal: Constipation, Diarrhea, Nausea and Other (See comments) (Client has a long history of issues with stomach- states she has been diagnosed with IBS, diverticulitis and issues with constipation.) Musculoskeletal Conditions Musculoskeletal: Arthritis (is getting an injection next week in her right hip) and Other (See comments) (fibromyalgia- has been having diffuse pain all over) Pain Assessment Do you have acute or chronic pain?: Yes (arthritis and fibromyalgia) Family History Family History Brother Depression Father Depression Myocardial infarction Mother Osteoporosis Uncle Brain aneurysm Grandmother Fibromyalgia Aunt Fibromyalgia Additional History Additional comments:: in September 2024, 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 In April 2025 will have a tumor removed from right neck. Client is getting an IV medication today from pain management for her fibromyalgia pain. Surgical History Surgical History Have you had any surgeries? If so, list type and date:: Yes (L carotid tumor, appy, sandra, hysterectomy, brain aneurysm coils) Substance Abuse Substance Abuse Please describe substance abuse in the last 30 days:: Client denies alcohol, tobacco or substance use. Client states she drinks 4-6 pop cans per day with caffeine. Mental Status Summary Mental Status Significant Findings/Observations on Appearance and Mood:: Client is alert and oriented x 4. Client is casually groomed with good hygiene. Client is cooperative with assessment. Client makes fair eye contact. Client's voice has normal rate and volume, but she is slow to respond at times. Client has appropriate affect. Client makes logical associations. Client denies delusions/hallucinations. Client denies SI, but does report some survival ambivalence (what is the point?). Suicide Assessment Suicidal Ideation Are you currently or have you been suicidal in the past?: No Suicidal Intentional Rating Scale (SIRS): No suicidal thoughts (past or present) Physician Notification Past Psychiatric History MH Treatment Hx Past Psychiatric Medications:: states she knows she has been on other medications besides her present medications but does not remember the names Age of first mental health symptoms: Client states she first started counseling as a child after she dropped out of school. Client states she has been on medications for her mental health since around age 18-19. Describe (age, circumstance, etc) any past hospitalizations: None. Current providers for mental health treatment (counselor, psychiatrist, binder caser, etc.): Maggie Sales NP at [facility] for psychiatry, Justin at [facility] for therapy Fall Risk Assessment Age Age: Less than 60 Mental Status Mental Status: Willing & able to ask for assistance when needed Physical Status Physical Status: No problems Impairments Impairments: None Elimination Elimination: Continent AND independent Gait or Balance Gait or Balance: Walks independently (does report activity intolerance due to pain) Hx of Falls History of falls in the past 6 months: No known history Medications/Substances Psychotropics:: Antidepressants and Antihistamines (e.g. Benadryl) Others:: Antihypertensives Medications/substances used within the past 24 hours or ordered to administer: 3 or more of the medications/substances listed above Total Score Total Points:: 2 RN Summary of Impressions Impressions Recommendations Impressions: Psychiatric Issues: Major depressive disorder, PTSD, Generalized anxiety disorder Level of Care How do the client's current symptoms and functional deficits support need for this level of care?: Client was in IOP in August 2023 and self-referred herself back at this time due to decreased function due to depression. Client states initially after completing IOP, she was doing very well but states the last several months have been difficult. Client had a tumor removed from her neck in September 2024 and states her fibromyalgia has been affecting her life more due t o pain. Client states she is unable to perform tasks like cook and clean at home on a regular basis due to her mental and physical health. Client states it makes her feel guilty to put more responsibility on her that has cerebral palsy. Client states due to arthritis and fibromyalgia, walking is difficult and painful. Client reports isolating herself, decreased motivation, decreased energy, and overwhelming fatigue. Client does have a history of cutting and states she has had urges in the last few months to cut, but has not cut in several years. Client denies SI. IOP will promote gains and prevent further decompensation while providing social support and skills training.
[2025-03-27 09:35] VITALS: BP 124/72; PULSE 102
--- NOTE | 2025-03-27 10:10 | BH.SGPN.GN ---
Behaviors/Verbalizations/Mental Status: [] Eye contact is good. Motor activity is appropriate. Appearance is casual. Speech is Appropriate. Mood is anxious. Affect is congruent. Thoughts are linear and logical. No evidence of psychosis. Client Response/Progress/Benefit: [] Pt engaged in session AEB listening attentively to others and providing input throughout. Pt engaged in activity, able to connect how it can be uncomfortable and difficult to practice acceptance when situations are out of one?s own control. Identified she is struggling with accepting her physical health issues. Worked with peer group to define acceptance and identify the benefits that acceptance can bring. Benefits included; reduce stuckness, reduced stress, helps one to focus on situations we can change, and decreased negative self-talk. Seemed to benefit from increased awareness of the meaning as well as the importance of acceptance. Will continue in IOP to challenge negative thoughts, improve daily functioning, and prevent decompensation.
--- NOTE | 2025-03-27 11:10 | BH.SGPN.GN ---
Behaviors/Verbalizations/Mental Status: []Pt alert and oriented, casually dressed and groomed. Eye contact fair. Motor activity appropriate. Speech within normal limits. Affect congruent, mood dysthymic. Thoughts linear, logical, no signs of hallucinations or delusions. Client Response/Progress/Benefit: [] Pt responded well to session AEB taking notes and contributing to discussion throughout. Pt engaged as group continued discussion on acceptance and the mental health benefits of practicing acceptance. Pt and peers identified what makes acceptance challenging and pt completed a self-reflection exercise on what is hard to accept in pt's life. Pt identified something that is currently hard to accept for her as physical health changes/increased pain. Client stated by not accepting this it leads to anger, sadness, and avoidance. Group identified strategies to increase acceptance. Pt noted wanting to work on asking for help as a strategy for improving acceptance in this area. Pt appeared to benefit from gaining insight and learning strategies to increase acceptance. Pt will continue IOP tx to improve view of self, increase mood stability, and prevent decompensation. Narrative Note: []
--- NOTE | 2025-03-27 11:37 | BH.PSY.EVA_ITS ---
Psychiatric Evaluation Initial Evaluation Initial Evaluation: Chief Complaint: I feel overwhelmed. History of Present Illness: [] The patient is a 39-year-old female with a history of depression, PTSD, mild developmental delay and seizures who referred herself to the [facility] behavioral health IOP for mental health decompensation for the past several months. The patient is known to the [facility] IOP staff she is been in the program before most recently in 2022. She has significant fibromyalgia and states that the pain and fatigue from this makes it difficult to deal with owning a house and keeping it the way she would like to. She is also stressed by being now as her has cerebral palsy and requires some care from her also. She feels overwhelmed and feels she is unable to manage both her house and her . She used to love to cook but has no energy to do it anymore. She has decreased motivation and low energy. She is using electric carts lately to grocery shop because walking is too tiring. She endorses sadness, worry, anger, brain fog, generalized pain and difficulty sleeping. She has extensive health issues which includes benign tumors of the carotid artery and she has also had a number of aneurysms removed which was the cause for her seizures in the past. She has been for 5 years and currently lives with her , 2 dogs and 4 cats. 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 She is on disability for mental health issues. She used to cut in the past and is having thoughts of cutting now but she has not cut for many years and she states that now she watches her favorite TV shows instead when she feels like cutting and this enables her not to cut. For primary support she has her counselor. She drinks 4-5 caffeinated soda drinks a day but no energy drinks or coffee. She denies suicidal ideation, plan for suicide, passive thoughts of , homicidal ideation, hallucinations, delusions or symptoms of celso ever. She is a worrier by nature and has panic attacks about once a week. She has some trauma in childhood and in adulthood from which she has been diagnosed with PTSD but this has not changed recently. She denies OCD or eating disorder. Patient states that her memory is not good and she is not completely reliable as a historian in terms of how long she has been on medications. Current Psychiatric Medications: [] Lexapro 20 mg p.o. daily (increased 2 weeks ago by outpatient provider); Vraylar 1.5 mg p.o. daily (x 1 month?); hydroxyzine 25 mg p.o. 3 times daily as needed for panic attacks; mirtazapine 15 mg p.o. nightly (since possibly since February 12, 2025 according to review of outpatient practitioners records. Past Psychiatric History: [] No psych admits ever. No suicide attempts ever. She does have a counselor she sees weekly and this is helpful. She first took psych meds in 2002. She has been on a lot of medications in the past and they stopped working after a while but she does not remember the names of the meds. She has a history of cutting herself as a teenager for several years but has not cut since then although she has had thoughts of self-harm at times. Substance Use History: [] Non-smoker. No vaping. No alcohol or marijuana use or other drug use. Allergies: [] Latex and oxycodone Medications: [] Psych meds as dictated above plus a statin, sucralfate, losartan, aspirin, famotidine, pantoprazole, multivitamin Past Medical History: [] Hypertension, arthritis, fibromyalgia, diverticulitis, headache, seizure due to brain aneurysms with the last seizure being in 2019. Benign carotid artery tumors bilaterally. She had an aneurysm rupture in 2013 at 29 years of age and had surgery for this and also had 4 or 5 other aneurysms removed surgically. She had a hysterectomy in 2018 for pelvic pain. She had an appendectomy in her gallbladder out in 2009. She sees a neurologist for follow-up with her benign tumors and she is unsure of what diagnosis her neurologist gives her. Family Psychiatric History: [] Mother and father are in their 60s. Father has a history of depression. Father was also a drug addict in the past. Both parents have attempted suicide in the past but there were no completed suicides in the family. Personal/Social History: [] Patient was born and raised in [place] and describes his childhood as good. She had a brother 1-year-old her but they are not close. School sucked for her and she was bullied at school and had a hard time learning. She was diagnosed with learning disability at 1 point and homeschooled for short time but her mother quit doing this so she ended up quitting school early and has only had education up to seventh grade. She had a hard time reading and writing and she never got her GED. 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 She has been with her for 10 years and has been to him for 5 years and he has cerebral palsy and she helps take care of him. She has been on disability from mental health and physical reasons since the . She denies any abuse in her marriage. Legal History: [] No arrests. 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 No DUIs. Review of Systems: [] She has a rash on her dorsal forearms bilaterally that does not itch and she is not sure how long it has been there but does not know what it is due to. She also has chronic pain and fatigue from from fibromyalgia and arthritis and has numerous GI symptoms with diverticulitis with occasional diarrhea, nausea, constipation and GERD and at times emesis. Review of systems otherwise negative except as noted in the present illness. Vital Signs: [] Vital signs reviewed the nurses notes and updated and the patient is deemed medically able to participate in the IOP. Mental Status Examination: [] The patient is a 39-year-old female who appears normal for stated age and is overweight and seen wearing glasses. She is casually dressed and groomed with good hygiene and has no psychomotor agitation or retardation. She is cooperative during the interview. Eye contact is fair and at times is good and speech is normal rate and rhythm and fluent with no pressure. Mood is depressed. Affect is constricted. Thought process is goal-directed and organized. Thought content: Patient feels overwhelmed and worried about accomplishing her tasks at home and at work. There is no evidence of passive thoughts of , suicidal ideation, plan for suicide, homicidal ideation, hallucinations, delusions or symptoms of celso. Reality testing is intact. Intelligence is average or a little below. Judgment is intact. Insight is limited but some present. Impulsivity is moderate. Diagnoses: [] 1. Major depressive disorder, recurrent, moderate 2. PTSD 3. Generalized anxiety disorder 4. Cluster B traits 5. Primary support, marital and work issues 6. Mild developmental delay Plan: [] The patient will start the IOP in behavioral health at [facility] as the structure, support, education and group therapy will hopefully prevent worsening of the patient's symptoms. The risk, options, possible complications and side effects of the medications were discussed with the patient and she understands accepts these. No medication changes were made today as her Lexapro was increased 2 weeks ago. She agrees to use lotion on her mild rash on her dorsal forearms and hands and to discuss it with her primary care physician. Patient will continue to follow-up with her outpatient providers and I will see the patient in follow-up in 2 weeks.
--- NOTE | 2025-03-27 11:49 | BH.DR.ITP ---
Initial Treatment Plan Patient Information Visit Information: ADMISSION DATE: EXPECTED LOS: 4-6 weeks Problems/Symptoms Problem #1:: Depression Symptom:: Sadness, low motivation, low energy, fatigue, irritability, biological disruption of sleep, Problem #2:: Anxiety Symptom:: Worry, rumination, panic attacks
--- NOTE | 2025-04-02 09:00 | BH.SGPN.GN ---
Behaviors/Verbalizations/Mental Status: [] ?Eye contact is good. Motor activity is appropriate. Appearance is casual. Speech is Appropriate. Mood is euthymic. Affect is congruent. Thoughts are linear and logical. No evidence of psychosis. Reviewed daily check in sheet and no reports of suicidal ideations or intent. Client Response/Progress/Benefit: [] ?Pt was an active participant in group discussions. Attentive. Did well to identify 2 mental health wins including filling her pill case for the week, as well as removing herself from a stressful situation when visiting her mother. Reports in the past she would have forced herself to stay and be uncomfortable. Stressor noted as her ongoing struggles with pain management. Did well to identify what is and is not in her control regarding the situation, identifying healthy skills use to manage this stressor. Progress noted. Benefited from group support, encouragement, and feedback. Will continue in IOP to prevent decompensation, promote mood stability, and increase healthy coping consistency. Narrative Note: []
--- NOTE | 2025-04-02 11:15 | BH.SGPN.GN ---
Behaviors/Verbalizations/Mental Status: []Pt alert and oriented, neatly dressed and groomed. Eye contact good. Motor activity appropriate. Speech within normal limits. Affect congruent, mood depressed. Thoughts linear, logical, no signs of hallucinations or delusions. Client Response/Progress/Benefit: [] Pt was an active participant, engaged in activities and discussion. Pt able to identify ways they negatively contribute to crucial conversations and pt was engaged during psychoeducation of the different ways to build interpersonal effectiveness skills. Pt and peers practiced mirroring and active listening in partners. Group reviewed [employer] [employer] and used the handout to help map out how they would like a crucial conversation in their life to go. Pt identified talking with her as a crucial conversation pt needs to prepare for. Pt appeared to benefit from learning and practicing interpersonal effectiveness skills. Pt will continue IOP tx to prevent decompensation, increase self-confidence, and reinforce healthy coping skills. ? Narrative Note: []
--- NOTE | 2025-04-02 11:57 | BH.MDN_ITS ---
Multi-Disciplinary Note Note 30-min Individual: Time Started:: 10:40 Date: 04/02/25 Purpose of session/treatment goals addressed:: Purpose of session was to begin working on identifying thought patterns and behaviors reinforcing pt chronic pain cycle and impacting her mental health sx. Eye Contact:: Good Motor Activity:: Appropriate Appearance:: Casual Speech:: Appropriate Mood:: Anxious and Depressed Affect:: Congruent Thoughts:: Linear, Logical and No evidence of hallucinations/delusions noted Staff Interventions:: psychoeducation on: (psychological components of pain management, chronic pain cycle), CBT techniques, mindfulness skills, strengths perspective, goal setting and taught coping skills (guided imagery) Client Response:: Pt responded well to session, open to meeting with therapist. Pt reports she is overall finding IOP tx to be beneficial and is enjoying the support of the shared environment, as well as the information provided. Pt discussed ongoing issues with fatigue and reports that she has been struggling to complete daily activities such as showering and changing her clothes due to pain. Reports that she did however fill her pill organizer for the week which she is proud of as pt often forgets this. Pt expressed frustration and disappointment in the extent to which her daily functioning has declined since receiving a fibromyalgia diagnosis this past year. Reports that her ability to keep up with the house, personal hygiene, and mental health have suffered significantly as a result which Leads to feelings of guilt, anger, anxiety, and hopelessness. Reports struggling to accept help with house keeping but has ultimately decided that she can no longer keep up with things on her own and plans to meet with someone on Tuesday to discuss options for housekeeping assistance. Receptive of discussion reviewing the psychological components of pain and how thoughts can contribute to worsening pain intensity. Worked with therapist to review her Cycle of Chronic Pain and identify thought and behavior patterns that may be unintentionally intensifying her pain, such as pacing, what if thoughts, and telling herself she ?can?t handle it?. Therapist discussed the impacts of mindfulness in improving self-talk and feelings of control regarding pain management. Pt expressed some hesitancy but was willing to engage in a guided imagery for pain management. Open to practicing this when noticing increased pain and negative self-talk associated throughout the next week. Additionally, worked with therapist to create 3 self-talk statements she can read to herself when struggling with negative self-talk regarding pain management. Risks/Concerns:: None noted. Pt denies SI, plan, or intent as of this date 04/02/25 Progress Toward Goals/Plan:: Slight progress noted. Pt reports the shared group environment has aided in improving her mood and reducing feelings of isolation regarding her mental health struggles. Reports being able to walk away from a potential unhealthy interaction and regulate her emotions over the weekend which is progress. Pt reports her primary stressor is pain management regarding her fibromyalgia and the impacts pain have had on her functioning and reinforcing sx of anxiety and depression. Continues to report negative self-talk and fear I won't be able to do anything when noticing flairs in pain. Often focuses on what is outside of her control regarding her pain, such as medication effectiveness. However, receptive of learning about psychological components of pain and mindfulness skills in reducing pain related stress and anxiety. Recommended continued IOP tx to improve mood stability, reduce negative self- talk, and increase self-confidence. Time Stopped:: 11:12
--- NOTE | 2025-04-03 09:00 | BH.SGPN.GN ---
Behaviors/Verbalizations/Mental Status: [] Client alert and oriented, casual appearance. Eye contact fair. Motor activity appropriate. Speech within normal limits. Affect congruent, mood tired. Thoughts linear, logical, no signs of hallucinations or delusions. Reviewed client's symptom tracker, no risk for suicidal ideation, plan, or intent. Client Response/Progress/Benefit: [] Client responded well to session AEB listening to others and sharing thoughts/feelings. Per daily symptom tracker pt reports a 3/5, with 5 being severe, for depression and a 2/5 for anxiety. Client reported mental positive as using opposite action to get to IOP this morning because she wanted to stay in bed. Client noted additional mental positive as doing her hair this morning. Client stated current stressor is her insurance company denying a shot she gets for pain. Client worried the impact this will have if her insurance will not approve this shot. Appeared to benefit from support from peers. Will continue IOP tx to increase consistent use of healthy coping skills, challenge negative thoughts, and prevent decompensation. Narrative Note: []
--- NOTE | 2025-04-03 10:10 | BH.SGPN.GN ---
Behaviors/Verbalizations/Mental Status: []Pt alert and oriented, neatly dressed and groomed. Eye contact good. Motor activity appropriate. Speech within normal limits. Affect congruent, mood depressed. Thoughts linear, logical, no signs of hallucinations or delusions. Client Response/Progress/Benefit: []Pt participated during small group discussions. Attentive during psychoeducation about defense mechanisms. Showed engagement during small group discussions and helped group identify which defense mechanisms were maladaptive, adaptive, or ?somewhere in the hay.? Pt worked with small group on identifying how each defense mechanism can impact mental health and gave examples. Pt stated she learned that not all defense mechanisms are bad.?Pt reported benefit from sharing examples with peers. Seemed to benefit from gaining awareness about the different defense mechanisms. Pt to continue IOP tx to prevent decompensation, improve daily functioning, and reduce isolation. Narrative Note: []
--- NOTE | 2025-04-03 11:10 | BH.SGPN.GN ---
Behaviors/Verbalizations/Mental Status: []Pt alert and oriented, casually dressed and groomed. Eye contact good. Motor activity appropriate. Speech within normal limits. Affect congruent, mood anxious and depressed. Thoughts linear, logical, no signs of hallucinations or delusions. Client Response/Progress/Benefit: [] Pt responded well to session, participating in activity and small group discussion. Group reviewed the rest of the defense mechanisms and discussed how these are adaptive, maladaptive, or somewhere in the hay. Pt's defense mechanisms included rationalization, suppression, sublimation, and humor. Pt listened to automobile body repairer teach different skills to help pt?s cope with or change their defense mechanisms. Pt appeared to benefit from gaining insight to the different defense mechanisms and learning coping skills. Reports wanting to work on reducing use of self-discipline. Pt will continue IOP tx to prevent decompensation, improve distress tolerance skills, and increase self-care. Narrative Note: []
--- NOTE | 2025-04-03 11:10 | BH.SGPN.GN ---
Behaviors/Verbalizations/Mental Status: []Pt alert and oriented, casually dressed and groomed. Eye contact good. Motor activity appropriate. Speech within normal limits. Affect congruent, mood anxious and depressed. Thoughts linear, logical, no signs of hallucinations or delusions. Client Response/Progress/Benefit: [] Pt responded well to session, participating in activity and small group discussion. Group reviewed the rest of the defense mechanisms and discussed how these are adaptive, maladaptive, or somewhere in the hay. Pt's defense mechanisms included rationalization, suppression, sublimation, and humor. Pt listened to shelter case manager teach different skills to help pt?s cope with or change their defense mechanisms. Pt appeared to benefit from gaining insight to the different defense mechanisms and learning coping skills. Reports wanting to work on reducing use of self-discipline. Pt will continue IOP tx to prevent decompensation, improve distress tolerance skills, and increase self-care. Narrative Note: []
--- NOTE | 2025-04-04 09:05 | BH.SGPN.GN ---
Behaviors/Verbalizations/Mental Status: [] Eye contact is good. Motor activity is appropriate. Appearance is casual. Speech is Appropriate. Mood is depressed. Affect is congruent. Thoughts are linear and logical. No evidence of psychosis. Reviewed daily check in sheet and no reports of suicidal ideations or intent. Client Response/Progress/Benefit: [] Pt participated at times during the group discussions. Attentive. Daily symptom tracker notes 3/5 for anxiety and irritability as well as 2/5 for depression.Pt was an active participant in group discussions. Attentive. Shared that she has noticed an increase in motivation and energy this week. According to pt she cleaned her fridge and worked on laundry yesterday. This is significant progress as she has struggled significantly with completing daily tasks due to mental and medical struggles. Group praised her for her efforts. Emphasis on behavioral activation and oppositive-action as her motivation and energy increased as she engaged herself in tasks. She discussed upcoming stressors with ?wall to wall? medical appointments and upcoming surgery. Progress noted. Benefited from group support, encouragement, and feedback. Will continue in IOP to prevent decompensation, provide support, and improve functioning. Narrative Note: []
--- NOTE | 2025-04-04 10:15 | BH.SGPN.GN ---
Behaviors/Verbalizations/Mental Status: []Eye contact is fair. Motor activity is appropriate. Appearance is casual. Speech is Appropriate. Mood is anxious. Affect is congruent. Thoughts are linear and logical. No evidence of psychosis. Client Response/Progress/Benefit: [] Pt was an active participant in group discussions. Attentive during psychoeducation. Contributed during interactive discussions in which peers attempted to define crisis. Group identified crisis examples. Group also worked together to identify warning signs and unhealthy responses to crisis which included shutting down, isolation, avoidance, over-thinking, disordered eating, and self-harm. Pt identified top 3 warning signs as: lack of self-care, isolation, and negative thinking. Benefited from increased understanding of crisis and awareness of personal responses to crisis. Pt will continue IOP tx to prevent decompensation, improve daily functioning, and increase social supports. ? Narrative Note: []
--- NOTE | 2025-04-04 11:15 | BH.SGPN.GN ---
Behaviors/Verbalizations/Mental Status: []Pt alert and oriented, appropriate grooming/appearance. Eye contact good. Motor activity appropriate. Speech within normal limits. Affect congruent, mood depressed and anxious. Thoughts linear, logical, no signs of hallucinations or delusions. Client Response/Progress/Benefit: []Pt was an active participant in group discussions. Attentive during psychoeducation. In small group pt along with peers developed an active plan for their crisis warning signs. Pt identified three crisis warning signs as well as an action plan for each. One crisis warning sign was low motivation. Pt identified strategies to help with this such as: listening to music to motivate/make it fun, opposite action, positive self-talk, and reminding self of the benefits. Benefited from increased awareness of crisis warning signs and by developing crisis intervention strategies. Will continue in IOP to improve distress tolerance, increase use of healthy coping, and improve daily functioning. Narrative Note: []
--- NOTE | 2025-04-10 09:00 | BH.SGPN.GN ---
Behaviors/Verbalizations/Mental Status: [] Eye contact is good. Motor activity is appropriate. Appearance is casual. Speech is Appropriate. Mood is depressed and anxious. Affect is congruent. Thoughts are linear and logical. No evidence of psychosis. Reviewed daily check in sheet and no reports of suicidal ideations or intent. Client Response/Progress/Benefit: [] Pt participated at times during the group discussions. Attentive. Daily symptom tracker notes 01/16 for depression, anxiety, and irritability. Pt shared that she is ?burned out? as she had several medical appointments yesterday. Discussed how these were anxiety producing events as well as she had handled some frustration and disappointment with an anger outburst, isolation, or emotion dysregulation. Group was able to point out the coping strategies she incorporated which was beneficial and increased her confidence. Progress noted. Benefited from group support, encouragement, and feedback. Will continue in IOP to prevent decompensation, increase healthy coping, and improve functioning. Narrative Note: []
--- NOTE | 2025-04-10 10:15 | BH.SGPN.GN ---
Behaviors/Verbalizations/Mental Status: []Pt alert and oriented, neatly dressed and groomed. Eye contact good. Motor activity appropriate. Speech within normal limits. Affect congruent, mood depressed. Thoughts linear, logical, no signs of hallucinations or delusions. Client Response/Progress/Benefit: []Pt was attentive during psychoeducation and participated in group activity. Group discussed what contributes to a person?s perspective and how perspective can positively or negatively impact mental health treatment. Pt reflected on their perspective today and how it is impacting them. Pt shared their perspective is both positive and negative as pt is not doing well mentally, but IOP has helped pt in the past, so pt knows it can again.?Pt appeared to benefit from increasing awareness of different perspectives and how they can affect mental health. Pt will continue IOP tx to prevent decompensation, improve daily functioning, and gain healthy coping skills. Narrative Note: []
--- NOTE | 2025-04-10 12:46 | BH.MDN ---
Multi-Disciplinary Note Note 30-min Individual: Time Started:: 11:30 Date: 04/10/25 Purpose of session/treatment goals addressed:: Purpose of session was to address treatment plan goal #2, objs #1 and #2. Additionally, began d/c planning Eye Contact:: Good Motor Activity:: Appropriate Appearance:: Casual Speech:: Appropriate Mood:: Euthymic and Anxious Affect:: Congruent Thoughts:: Linear, Logical and No evidence of hallucinations/delusions noted Staff Interventions:: motivational interviewing, CBT techniques, mindfulness skills, discharge planning, strengths perspective, taught coping skills (deep breathing) and other (created pain management coping plan) Client Response:: Pt receptive of session, actively engaged throughout. Reports she continues to find the support of the group environment helpful and is reminding herself of several coping skills learned during her previous IOP admission. Pt shared an example of recently being able to manage her emotions when plans with her were changed, rather than lashing out or becoming upset. Pt went on to share that in the past few weeks her relationships have been improving as well, describing an enjoyable visit with her parents over the weekend. Noted some fear that she will not be able to remember all that she has learned in treatment due to issues with her memory since changes in physical health status. Pt notes that prior to these health changes she had been going through her binder and practicing skill in order to manage her emotions and maintain independence. Since these health changes this has been very difficult for her. 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 Explained that her surgery will likely be on April 25, meaning that next week will be her last in the IOP program. Disclosed fear that she will become more depressed while in the hospital and on bed rest post-op. Worked with therapist to develop a coping plan for managing pain sx. This plan included warning signs and triggers for pain flare up, as well as preventative and coping measures she can take. Pt identified mindful movement, healthy distraction, asking for help, deep breathing, and positive self-talk. Pt and therapist laminated several deep breathing tracing techniques to bring with her to the hospital. Risks/Concerns:: Denies active suicidal ideations, plan, or intent as of this date 04/10/25. Progress Toward Goals/Plan:: Progress noted. Pt reports improved mood, emotion regulation, and communication within her relationships. She is actively working to apply the skills she can remember from IOP groups, though memory continues to inhibit further progress. Pt's chronic pain additionally serves as a barrier to tx progress, limiting energy and motivation levels. Doing better to communicate with supports and reports practicing grounding skills. Will continue IOP tx to complete coping skill maintenance plan and improve mood stability prior to d/c next week due to upcoming surgery. Time Stopped:: 11:53
== END 2025-04-13 23:59 ==
LOC: BHIOP 08:00
PROVIDERS: PCP Family Medicine; Referring Provider Psychiatry & Neurology Psychiatry; Visit Provider Psychiatry & Neurology Psychiatry
DX: F33.1 Major depressive disorder, recurrent, moderate (principal); F43.10 Post-traumatic stress disorder, unspecified; F41.1 Generalized anxiety disorder; F79 Unspecified intellectual disabilities
CPT/HCPCS: S9480; 90832; 90834; 90837; 90853

== ENCOUNTER 2025-04-15 07:28 | Outpatient (RCR) | payer MEDICARE, MEDICAID, SELFPAY ==
[2025-04-14 00:43] VITALS: BP 124/72; PULSE 102
--- NOTE | 2025-04-17 09:05 | BH.SGPN.GN ---
Behaviors/Verbalizations/Mental Status: [] Pt alert and oriented, casually dressed and groomed. Eye contact good. Motor activity appropriate. Speech within normal limits. Affect congruent, mood euthymic and anxious. Thoughts linear, logical, no signs of hallucinations or delusions. Reviewed pt?s symptom tracker, no risk for suicidal ideation, plan, or intent 04/17/25. Client Response/Progress/Benefit: []Pt was an active participant in group discussions. Attentive. Able to identify mental health wins including being proud of herself for using skills outside of IOP like opposite action and self-talk and ?talking things through instead of lashing out.? Pt's stressor today is ?our house waiver was denied.? Pt shared that she and her both struggle with mental health and he has cerebral palsy, so they cannot work and do not make much money. Pt shared ?we are in the middle of not making enough and making too much.? The group offered pt encouragement and emotional support which pt reported was helpful. Pt is feeling stressed but hopeful? this morning. Pt receptive to feedback from peers which pt reported was helpful. Progress noted. Benefited from group support, encouragement, and feedback. Will continue IOP tx to promote mood stability, increase social support, and improve self-confidence. Narrative Note: []
--- NOTE | 2025-04-17 10:10 | BH.SGPN.GN ---
Behaviors/Verbalizations/Mental Status: []Eye contact is good. Motor activity is appropriate. Appearance is casual. Speech is Appropriate. Mood is content. Affect is congruent. Thoughts are linear and logical. No evidence of psychosis. Client Response/Progress/Benefit: []Pt was an active participant in group discussion. Engaged and attentive during psychoeducation and interactive discussion on coping skills, why people use unhealthy coping skills, how to replace unhealthy coping skills, and internal vs external coping skills. Attentive as peers came up with list of unhealthy coping skills. Pt reported personally, they tend to either lash out or shut down. Group discussed the effects of maladaptive coping skills on mental health. Benefited from increased understanding of unhealthy coping skills and the need for developing healthy internal and external coping skills. Actively participated during experiential group activity and was able to related this activity to group topic. Will continue in IOP for one more day to complete aftercare planning and promote mood stability. Narrative Note: []
--- NOTE | 2025-04-17 14:33 | BH.MDN ---
Multi-Disciplinary Note Note 30-min Individual: Time Started:: 11:35 Date: 04/17/25 Purpose of session/treatment goals addressed:: To review treatment progress and discuss strategies for continued maintenance. Another goal was to discuss discharge and aftercare. Eye Contact:: Good Motor Activity:: Appropriate Appearance:: Casual Speech:: Appropriate Mood:: Euthymic and Anxious Affect:: Congruent Thoughts:: Linear, Logical and No evidence of hallucinations/delusions noted Staff Interventions:: motivational interviewing, CBT techniques, discharge planning, strengths perspective and reviewed DSM-5 Client Response:: Pt responded well to session, open to meeting with therapist. Pt reports she is overall doing well; however, today is feeling slightly more anxious. Attributes this increase in anxiety to it being her second to last day, anticipation regarding surgery next week, as well as recently discovering she and her do not qualify for a housekeeping pierre they applied for. Reports she feels she is managing her anxiety well and did not allow herself to get upset when receiving the news. Pt explained that her did reach out to their [employer] for support and several members expressed willingness to regularly assist with housekeeping responsibilities, especially while pt is healing post-operative. Pt described trying to remind herself that she has made it through this surgery in the past and now has additional skills to aid in the recovery process. Pt will be staying with her parents for 2 weeks while she recoups and was receptive of working with therapist to discuss coping strategies she can apply during that time. Pt noted that she has a plan for her to come get her if things don?t work out with her parents but does not plan for that to be the case. Described reaching out to the [employer] for a meal train as well as regular visits to reduce isolation. Additionally, pt did well to describe the boundaries she would like to set with her parents and calming skills she can use to regulate if feeling overwhelmed or struggling with difficult emotions. Identified us of positive affirmations, deep breathing, coloring, and changing the environment if possible or putting in headphones if not. Pt went on to reflect on several areas of progress over the past month. This included an improved sense of self-awareness of the thought patterns and behaviors that keep her stuck. Described improved use of slowing down and not responding to based on her first emotion, but rather trying to calm herself first and then process. Pt reports also more actively using opposite action to do the things she knows are going to be beneficial for her long-term. Pt responded well to reviewing skills and thought challenge techniques she can use to aid with ongoing maintenance as well as prevent decompensation. Risks/Concerns:: Pt denies any suicidal ideations, plan, or intent. Pt denies any thoughts of . Progress Toward Goals/Plan:: Pt continues to make progress towards tx goals AEB self-report of improved mood and functioning, as well as reduction in DSM-5 scores since admission. Pt also reports improvement in self-confidence, emotion regulation, self-compassion, and understanding of her mental health. Pt is more engaged with supports and within the community ? siting plans to get involved with her local [employer], reports reduced irritability, improved pain management, and better sense of self-confidence. Pt is connected with [facility] outpatient counseling services and Annalise Rivas at [facility]. She will d/c from [facility] tx tomorrow, 04/18/25. Time Stopped:: 12:00
--- NOTE | 2025-04-18 09:05 | BH.SGPN.GN ---
Behaviors/Verbalizations/Mental Status: [] Eye contact is good. Motor activity is appropriate. Appearance is casual. Speech is Appropriate. Mood is euthymic. Affect is full. Thoughts are linear and logical. No evidence of psychosis. Reviewed daily check in sheet and no reports of suicidal ideations or intent Client Response/Progress/Benefit: [] Pt participated at times during the group discussions. Attentive. Daily symptom tracker notes 3/5 for anxiety and 2/5 for depression/irritability. Pt shared with the group that today is her last day in [facility] as she will be discharged earlier than expected due to a surgery next week. Overall she believes that she made progress in her limited time her in [facility] with improved mood and functioning. Group has helped with support, social engagement, and skills. Less isolation. Consistent completion of household responsibilities and ADLs. Feeling hopeful. Progress noted. Benefited from group support, encouragement, and feedback. Will be discharged from [facility] today. Narrative Note: []
--- NOTE | 2025-04-18 09:05 | BH.SGPN.GN ---
Behaviors/Verbalizations/Mental Status: [] Eye contact is good. Motor activity is appropriate. Appearance is casual. Speech is Appropriate. Mood is euthymic. Affect is full. Thoughts are linear and logical. No evidence of psychosis. Reviewed daily check in sheet and no reports of suicidal ideations or intent Client Response/Progress/Benefit: [] Pt participated at times during the group discussions. Attentive. Daily symptom tracker notes 3/5 for anxiety and 2/5 for depression/irritability. Pt shared with the group that today is her last day in [facility] as she will be discharged earlier than expected due to a surgery next week. Overall she believes that she made progress in her limited time her in [facility] with improved mood and functioning. Group has helped with support, social engagement, and skills. Less isolation. Consistent completion of household responsibilities and ADLs. Feeling hopeful. Progress noted. Benefited from group support, encouragement, and feedback. Will be discharged from [facility] today. Narrative Note: []
--- NOTE | 2025-04-18 11:15 | BH.SGPN.GN ---
Behaviors/Verbalizations/Mental Status: [] Client alert and oriented, casually dressed and groomed. Eye contact good. Motor activity appropriate. Speech within normal limits. Affect congruent, mood content. Thoughts linear, logical, no signs of hallucinations or delusions Client Response/Progress/Benefit: [] Client was an active participant, AEB taking notes and providing input in group discussions and activities. Attentive during psychoeducation. Client engaged during interactive discussion in which the group defined self-care and discussed its benefits. Group discussed barriers to engaging in self-care, reports connecting with barrier of feeling it's too much work. Client participated in small groups where they worked to identify common self-care ?myths?. Benefited from increased awareness of self-care, its benefits, and the consequences of not utilizing self-care strategies. Will continue in outpatient tx to prevent decompensation and promote healthy coping skill application. Narrative Note: []
--- NOTE | 2025-04-18 11:15 | BH.SGPN.GN ---
Behaviors/Verbalizations/Mental Status: []Client alert and oriented, neatly dressed and groomed. Eye contact good. Motor activity appropriate. Speech within normal limits. Affect congruent, mood anxious. Thoughts linear, logical, no signs of hallucinations or delusions. Client Response/Progress/Benefit: [] Pt engaged participant AEB completing self-assessment worksheet and providing input throughout discussion. Pt completed worksheet identifying current self-care practices and what self-care activities Pt wants to start using. Pt selected financial self-care to begin practicing more consistently. Pt plans to do this by ?making a budget with my .? Appeared to benefit from completing the self-care evaluation and gaining insights into current self-care practices, as well as identifying areas in which Pt would like to improve upon. Pt will discharge from IOP tx today as pt has met her tx goals and no longer meets criteria for IOP level of care. Narrative Note: []
--- NOTE | 2025-04-18 14:30 | BH.DS_ITS ---
Discharge Summary Demographics Date of Admission:: 03/25/25 Discharge Date: 04/18/25 Presenting Problems at Admission:: Self-referred due to recent mental health decompensation. I'm spiraling down. Pt reports worsening fibromyalgia symptoms (pain, brain fog, fatigue) which has resulted in exacerbation of mental health (depression, anxiety, panic attacks, and irritability). Struggling to complete ADLs and daily responsibilities. According to patient it's very challenging to even find the energy and motivation to get out of bed in the AM. Has had limited benefit from traditional outpatient (counseling, case management, and medication management). Discharge Diagnoses:: 1. Major depressive disorder, recurrent, moderate 2. PTSD 3. Generalized anxiety disorder 4. Cluster B traits 5. Primary support, marital and work issues 6. Mild developmental delay Reason for Discharge:: Pt has accomplished tx goals AEB reduction of DMS-5 symptoms, self-report of improved functioning and mood, and improved outlook. Pt no longer meets criteria for IOP level of care and will discharge to outpatient counseling. Treatment Progress During Treatment & Response: Pt has responded well to treatment as evidenced by Pt consistently attending IOP sessions and reduction of DSM-5 scores since admission. Pt was always attentive and receptive to learning during group and individual sessions. Pt actively applied coping skills outside of IOP and reports overall mood is improved and she is functioning better than several months ago. Pt?s overall symptom reduction is 68% since admission with anger decreasing by 75%, depression decreasing by 75%, and anxiety sx decreasing by 67%. Pt has increased self-care, resilience, and motivation. Most importantly, Pt has become more self-accepting and confident in her abilities. Pt will follow up with [facility] for medication management and [facility] in [place] for individual therapy. Issues Still to be Addressed:: Pt can benefit from continuing to improve self- talk, self-compassion, conflict resolution, boundary setting, and expressing her needs. Discharge Recommendations/Instructions:: Pt will follow up with [facility] for medication management. Pt will also follow up with [facility] for individual counseling and is coordinating with her special education case manager, Edelmira, to schedule an appointment for post-surgery. Discharge Handout
--- NOTE | 2025-04-18 14:30 | BH.DS_ITS ---
Discharge Summary Demographics Date of Admission:: 03/25/25 Discharge Date: 04/18/25 Presenting Problems at Admission:: Self-referred due to recent mental health decompensation. I'm spiraling down. Pt reports worsening fibromyalgia symptoms (pain, brain fog, fatigue) which has resulted in exacerbation of mental health (depression, anxiety, panic attacks, and irritability). Struggling to complete ADLs and daily responsibilities. According to patient it's very challenging to even find the energy and motivation to get out of bed in the AM. Has had limited benefit from traditional outpatient (counseling, case management, and medication management). Discharge Diagnoses:: 1. Major depressive disorder, recurrent, moderate 2. PTSD 3. Generalized anxiety disorder 4. Cluster B traits 5. Primary support, marital and work issues 6. Mild developmental delay Reason for Discharge:: Pt has accomplished tx goals AEB reduction of DMS-5 symptoms, self-report of improved functioning and mood, and improved outlook. Pt no longer meets criteria for IOP level of care and will discharge to outpatient counseling. Treatment Progress During Treatment & Response: Pt has responded well to treatment as evidenced by Pt consistently attending IOP sessions and reduction of DSM-5 scores since admission. Pt was always attentive and receptive to learning during group and individual sessions. Pt actively applied coping skills outside of IOP and reports overall mood is improved and she is functioning better than several months ago. Pt?s overall symptom reduction is 68% since admission with anger decreasing by 75%, depression decreasing by 75%, and anxiety sx decreasing by 67%. Pt has increased self-care, resilience, and motivation. Most importantly, Pt has become more self-accepting and confident in her abilities. Pt will follow up with [facility] for medication management and [facility] in [place] for individual therapy. Issues Still to be Addressed:: Pt can benefit from continuing to improve self- talk, self-compassion, conflict resolution, boundary setting, and expressing her needs. Discharge Recommendations/Instructions:: Pt will follow up with [facility] for medication management. Pt will also follow up with [facility] for individual counseling and is coordinating with her cyanide case hardener, Edelmira, to schedule an appointment for post-surgery. Discharge Handout
== END 2025-04-18 12:12 | disposition home or self-care (01) ==
LOC: BHIOP 07:28
PROVIDERS: PCP Family Medicine; Referring Provider Psychiatry & Neurology Psychiatry; Visit Provider Psychiatry & Neurology Psychiatry
DX: F33.1 Major depressive disorder, recurrent, moderate (principal); F43.10 Post-traumatic stress disorder, unspecified; F41.1 Generalized anxiety disorder; F79 Unspecified intellectual disabilities
CPT/HCPCS: S9480; 90832; 90853

== ENCOUNTER → 2025-09-09 | Outpatient (CLI) | payer MEDICARE, MEDICAID, SELFPAY ==
[2025-09-09 15:05] LABS: Hematocrit 39.4 % (37-47); Hemoglobin 13.0 g/dL (12.0-15.0); Immature Granulocytes Count 0.010 X10^3/uL (0.0-0.0); Mean Corp Hgb Conc 33.0 g/dL (32-36); Mean Corpuscular Volume 89.7 fL (81-99); Mean Platelet Vol. 9.8 fl (6.2-12.0); NRBC Flagged by Analyzer 0 % (0-5); Platelet Count 426 K/mm3 (150-450); RBC Distribution Width CV 13.7 % (11.6-14.6); RBC Distribution Width SD 45.1 fl (35.1-43.9); Red Blood Count 4.39 M/mm3 (4.2-5.4); White Blood Count 8.3 K/mm3 (4.4-11.0)
[2025-09-09 16:01] LABS: AST(SGOT) 24 U/L (<=31); Alanine Aminotransfer ALT/SGPT 15 U/L (<=34); Albumin, Serum 4.1 g/dL (3.5-5.0); Alkaline Phosphatase 65 U/L (35-104); Anion Gap 11 (5-15); BUN 12 mg/dL (4-19); BUN/Creat Ratio 22.7 RATIO (10-20); Calcium,Total 9.8 mg/dL (7.6-11.0); Carbon Dioxide 26.7 mmol/L (21.0-32.0); Chloride 104 mmol/L (98-108); Ferritin 12 ng/mL (22-378); Globulin 3.3 g/dL (2.2-4.2); Glucose 111 mg/dL (70-99); Potassium 3.4 mmol/L (3.3-5.1)
[2025-09-09 16:46] LABS: CRP < 3.00 mg/L (0.0-3.0); Iron 48 ug/dL (50-170); LDH 172 U/L (84-246)
[2025-09-17 09:08] LABS: ACCA 17 units (0-90); ALCA 9 units (0-60); AMCA 10 units (0-100); Albumin 3.4 g/dL (2.9-4.4); Angiotensin Convert Enzyme 55 U/L (14-82); Anti-Parietal Cell AB, QN 22.2 Units (0.0-20.0); Cytoplasmic Ab (C-ANCA) <1:20 titer (Neg:<1:20); Estrogen, Total, Serum 468 pg/mL (.); Gamma Globulin 0.9 g/dL (0.4-1.8); Gastrin, Serum 53 pg/mL (0-115); IMMUNOFIXATION RESULT,S Comment: (.); IgG, Quant 970 mg/dL (586-1602); Immunoglobulin A 349 mg/dL (87-352); Immunoglobulin G, Subclass 1 333 mg/dL (248-810); Immunoglobulin G, Subclass 2 509 mg/dL (130-555); Immunoglobulin G, Subclass 3 41 mg/dL (15-102); Immunoglobulin G, Subclass 4 34 mg/dL (2-96); Immunoglobulin M 132 mg/dL (26-217); PROEL- TOTAL PROTEIN 6.9 g/dL (6.0-8.5); Perinuclear Ab (P-ANCA) <1:20 titer (Neg:<1:20); Testosterone, % Free 2.11 % (0.50-2.80); Testosterone, Free 0.23 ng/dL (0.10-0.85)
== END | disposition home or self-care (01) ==
LOC: LAB 14:35
PROVIDERS: PCP Family Medicine; Referring Provider Internal Medicine Gastroenterology; Visit Provider Internal Medicine Gastroenterology
DX: R19.7 Diarrhea, unspecified (principal); D64.9 Anemia, unspecified
CPT/HCPCS: 36415; 80053; 82164; 82672; 82728; 82784; 82785; 82787; 82941; 83516; 83540; 83615; 84165; 84402; 84403; 84443; 85025; 85652; 86036; 86037; 86140; 86255; 86334; 86671

== ENCOUNTER 2025-09-10 11:27 | Outpatient (CLI) | payer MEDICARE, MEDICAID, SELFPAY ==
[2025-09-10 12:39] LABS: Color, Urine Yellow (Yellow); Glucose, Dipstick Normal (Normal); Ketone-Dipstick 5 mg/dl (Negative); Leukocyte Esterase-Dipstick 25 /ul (Negative); Nitrite-Dipstick Negative (Negative); Occult Blood-Urine 150 /ul (Negative); Protein-Dipstick 30 mg/dl (Negative); Specific Gravity, Urine 1.020 (1.002-1.030); Urine Bilirubin Dipstick Negative (Negative)
[2025-09-10 12:46] LABS: Red Blood Cells-Urine 5-10 SEEN /hpf (0-5)
[2025-09-10 12:48] LABS: Mucous, Urine 1+ /hpf (<or=2+); Squamous Epithelial Cells - UA 5-10 SEEN /hpf (5-10)
[2025-09-10 13:19] LABS: Osmolality, Urine 857 mOsm/KG
[2025-09-11 17:08] LABS: Pancreatic Elastase, Fecal > 800 (>200)
[2025-09-13 03:07] LABS: Calprotectin, Stool 78 ug/g (0-120); Fats, Neutral Normal (.); Fats, Total Normal (.)
== END 2025-09-10 23:59 | disposition home or self-care (01) ==
LOC: LABSPEC 11:29
PROVIDERS: PCP Family Medicine; Referring Provider Internal Medicine Gastroenterology; Visit Provider Internal Medicine Gastroenterology
DX: R19.7 Diarrhea, unspecified (principal); K58.9 Irritable bowel syndrome, unspecified; N39.0 Urinary tract infection, site not specified
CPT/HCPCS: 81001; 82274; 82653; 82705; 83630; 83935; 83993; 87086; 87088; 87177; 87209; 87329; 87493; 87506

== ENCOUNTER 2025-09-30 15:39 | Emergency (ER) | payer MEDICARE, MEDICAID, SELFPAY ==
[2025-09-30 15:40] VITALS: BP 139/107; PULSE 115; RESP 16; TEMP 36.8; O2SAT 98; BMI 30.3
--- NOTE | 2025-09-30 16:01 | EX.ED.VIS.PS ---
HPI HPI - Psych History of Present Illness Chief Complaint: Mental Health Narrative Narrative: Patient is a 40-year-old female presenting to the emergency department for worsening depression. Patient has a past medical history of major depressive disorder and generalized anxiety disorder. She is on duloxetine 90 mg. She states that this was recently increased over the past few weeks by her psychiatrist, Annalise Sales. She reports that she called the office today and she was not in and thus came here to the emergency department for evaluation. She states that she has been thinking of cutting her wrist not in an attempt to kill herself but to "feel something". She states that she used to cut in the past. Denies any suicide attempt in the past. Denies any history of admission to the hospital for psychiatric reasons. She reports that she was recently diagnosed with fibromyalgia and they are building a house currently which has increased her stress. Denies any new physical complaints. [facility] Medical History (Updated 09/30/25 @ 16:[address] Joyce Johnson MD) Anxiety Depression Kidney stones Stroke/cerebrovascular accident TMJ (temporomandibular joint syndrome) Wears glasses Teeth problem High cholesterol Easy bruising Back pain Restless legs Seizures History of diverticulitis Non-smoker Shortness of breath on exertion Insomnia GERD (gastroesophageal reflux disease) Carotid artery disease Depression IBS (irritable bowel syndrome) Panic disorder Hypertension Migraine ADD (attention deficit disorder) Fibromyalgia Cerebral aneurysm Arthritis Generalized anxiety disorder PTSD (post-traumatic stress disorder) Major depressive disorder, recurrent, moderate Home Medications Medication Instructions Recorded Last Taken Type multivitamin with folic acid 400 1 tab PO DAILY 12/07/16 Unknown History mcg tablet (Thera) sucralfate 1 gram tablet 1 g PO 4X/DAY 12/07/16 Unknown History losartan 50 mg tablet 50 mg PO DAILY 08/29/19 09/03/19 03:00 History aspirin 81 mg chewable tablet 81 mg PO DAILY 07/04/24 12/07/24 History atorvastatin 40 mg tablet 40 mg PO QHS 12/07/24 Unknown History hydroxyzine HCl 25 mg tablet 25 mg PO TID PRN anxiety #60 tabs 07/03/25 Unknown Rx duloxetine 30 mg capsule,delayed 30 mg PO QDAY #30 caps 09/20/25 Unknown Rx release duloxetine 60 mg capsule,delayed 60 mg PO QDAY #90 caps 09/20/25 Unknown Rx release trazodone 50 mg tablet 50 mg PO QHS PRN sleep #30 tabs 09/20/25 Unknown Rx esomeprazole magnesium 40 mg 40 mg PO BID #60 caps 09/30/25 Unknown Rx capsule,delayed release Allergy/AdvReac Type Severity Reaction Status Date / Time latex Allergy Hives Verified 09/30/25 15:42 oxycodone AdvReac Vomiting Verified 09/30/25 15:42 Family History Brother Depression Father Depression Myocardial infarction Mother Osteoporosis Uncle Brain aneurysm Grandmother Fibromyalgia Aunt Fibromyalgia Surgical History History of cystoscopy Hx of colonoscopy History of esophagogastroduodenoscopy (EGD) History of excision of lesion History of cholecystectomy History of hysterectomy Social History current occupational status: employed Smoking Status: Never smoker alcohol intake: never substance use type: does not use ROS ROS ED ROS Narrative see HPI EXAM Physical Exam Narrative Exam Narrative: Vital signs: Reviewed General: Alert and oriented x 3. No acute distress HEENT: Head is normocephalic and atraumatic, sinuses nontender, pupils equal round and reactive. Nares are patent. Oropharynx and throat exams normal. Neck: Supple without lymphadenopathy nontender Cardiovascular: Regular rate and rhythm, no murmurs. No rubs or gallops. Normal S1 and S2 Respiratory: Clear to auscultation bilaterally. No wheezes, rales, rhonchi Abdominal: Soft and nontender. Normal bowel sounds. No guarding or rebound. Nonsurgical abdomen Extremities: No tenderness. No bruising. Normal range of motion. Normal sensation. Skin: No rash or redness. Neurological: Cranial nerves II through XII are grossly intact. Normal strength and sensation. Normal cerebellar function The rest of the physical exam is unremarkable Const Vital Signs: 09/30/25 15:40 09/30/25 17:25 Temperature 98.3 F 98 F Temperature Source Oral Pulse Rate 115 H 101 H Respiratory Rate 16 16 Blood Pressure 139/107 H 138/80 H Blood Pressure Mean 117 99 Pulse Ox 98 99 Oxygen Delivery Method Room Air Neuro oriented x3 Psych mental status grossly normal, thought process normal, cooperative, affect normal and speech normal Appearance: grossly normal, appropriate and well kempt Attitude: calm, engaged, No withdrawn, No uncooperative, No evasive, No guarded, No agitated and No aggressive Activity / Motor Behavior: appropriate eye contact; Negative for psychomotor agitation, hyperactive or avoids eye contact Speech: normal speech, No minimal, No slow and No soft Mood & Affect: Negative for depressed, sad, tearful, labile affect or flat affect Thought Process: normal thought process Thought Content: normal thought content, No suicidality, No homicidality, No phobia(s), No delusion(s) and No hallucination(s) Attention / Concentration: attention grossly intact and concentration grossly intact Memory / Cognition: memory grossly intact Insight: insight good Judgement: judgement good MDM MDM MDM Narrative Medical decision making narrative: Patient is a 40-year-old female presenting to the emergency department for worsening depression. Patient was seen and examined. Vitals are stable. Patient resting bed comfortably no acute distress. She is here with her at bedside. Patient denies SI or HI. Denies hallucinations, paranoia or delusions. Never had a suicide attempt before. She has good judgment and insight which is why she is here today in her own free well for evaluation and further resources. She reports that she is compliant with her Cymbalta. Social work will be consulted for further resources outpatient and a safety plan. I do not think the patient is an acute risk to herself or anyone else at this time. I think she can be managed outpatient by her psychiatrist. Social work in agreement. They provided her resources for intensive outpatient therapy and safety planned her. Social work spoke to her psychiatrist and she will follow her outpatient closely. Patient discharged from the Emergency Department. I do not feel that the patient's evaluation reveals any acute reason for admission at this time. I instructed them to either follow-up with their primary care physician or promptly return to the Emergency Department for reevaluation should symptoms worsen or new symptoms develop. I explained what symptoms would indicate the need to return to the emergency department. Shared decision making was used. The patient voiced understanding of the treatment plan and is agreeable with it. Clinical impression Depression History & Record Review Discussion w/independent historian: Patient and Significant other Discharge Plan Triage Chief Complaint: Mental Health ED Provider: Joyce Johnson Dx/Rx/DC Orders Clinical Impression: Depression Instructions: Depression: Tips to Help Yourself, Suicide Warning Signs, ED Depression Prescriptions: No Action aspirin 81 mg tablet,chewable 81 mg PO DAILY duloxetine 30 mg capsule,delayed release(DR/EC) 30 mg PO QDAY Qty: 30 1RF Rx Instructions: Take 1 capsule daily in addition to 60mg capsule for 90mg total daily duloxetine 60 mg capsule,delayed release(DR/EC) 60 mg PO QDAY Qty: 90 1RF Rx Instructions: Take 1 capsule daily in addition to 30mg capsule for 90mg total daily trazodone 50 mg tablet 50 mg PO QHS PRN (Reason: sleep) Qty: 30 1RF sucralfate 1 GM tablet 1 g PO 4X/DAY Patient Comments: STOMACH multivitamin with folic acid [Thera] 1 TABLET tablet 1 tab PO DAILY Patient Comments: SUPPLEMENT losartan 50 MG tablet 50 mg PO DAILY atorvastatin 40 mg tablet 40 mg PO QHS hydroxyzine HCl 25 mg tablet 25 mg PO TID PRN (Reason: anxiety) Qty: 60 1RF esomeprazole magnesium 40 mg capsule,delayed release(DR/EC) 40 mg PO BID Qty: 60 3RF Primary Care Provider: Raman Loco Referrals: Raman Loco MD [Primary Care Provider, Medical] Maggie Sales NP-C [Med Staff - Chain Splitter, Psychiatry] - As soon as possible Activity Restrictions/Additional Instructions: Call your psychiatrist tomorrow for follow up as soon as possible. Please attend the intensive outpatient program as planned. Please follow the safety contract that was discussed with you. You can return to the ED at any time if you develop worsening thoughts of depression or thoughts of harming yourself or others. Print Language: Hungarian Disposition Disposition: Home, Self Care Discharge Date/Time: 09/30/25 17:26
[2025-09-30 17:25] VITALS: BP 138/80; PULSE 101; RESP 16; TEMP 36.6; O2SAT 99
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
--- NOTE | 2025-10-01 11:58 | CM.ED ---
Social work Reason for referral: safety plan F/U Referral source: ED GUICHO RAZA SW received handoff via email from Janet RAZA regarding patient. This SW called patient around 1130 and left a requesting a return call. Patient returned call around 1155 and reported doing well. Patient stated doing better today and attempting to get in to see patient's psychiatrist, Maggie Sales at [facility]. Patient stated this attempt not being successful, but patient stated "we'll get it figured out." Patient stated having a telehealth appointment with Justin, counselor at [facility], today. Patient stated also planning on attending the appointment Janet RAZA set up for patient at [facility]'s [facility] tomorrow at 1400. Patient denied further needs at this time. This SW reminded patient of [facility] ED and/or Crisis team being options should patient's symptoms increase; patient expressed understanding and being grateful for the resources. Tracy Mendoza, SENIOR PUBLICATIONS SPECIALIST, CLEANER GREASER
== END 2025-09-30 17:26 | disposition home or self-care (01) ==
PROVIDERS: Emergency Provider Student in an Organized Health Care Education/Training Program; PCP Family Medicine; Visit Provider Student in an Organized Health Care Education/Training Program
DX: F32.A Depression, unspecified (principal); E78.00 Pure hypercholesterolemia, unspecified; I10 Essential (primary) hypertension; Z86.73 Personal history of transient ischemic attack (TIA), and cerebral infarction without residual deficits; Z79.899 Other long term (current) drug therapy; F41.9 Anxiety disorder, unspecified; K21.9 Gastro-esophageal reflux disease without esophagitis; Z90.49 Acquired absence of other specified parts of digestive tract; Z90.710 Acquired absence of both cervix and uterus
CPT/HCPCS: 99282

== ENCOUNTER → 2025-10-01 | Outpatient (CLI) | payer MEDICARE, MEDICAID, SELFPAY ==
--- NOTE | 2025-10-01 06:24 | CT_ITS ---
PROCEDURE: ABDOMEN/PELVIS WITH CONTRAST 10/01/2025 REASON FOR EXAM: DIARRHEA, ABD PAIN TECHNIQUE: Procedure Code: [id number] Modality: CT Procedure: ABDOMEN/PELVIS WITH CONTRAST Coronal and Sagittal reconstruction series were provided. CONTRAST: isovue 370 VOLUME: 100 mL One or more dose reduction techniques were used (e.g., Automated exposure control, adjustment of the mA and/or kV according to patient size, use of iterative reconstruction technique. RADIATION DOSE SUMMARY: CTDI Vol 13.71 mGy DLP :713.64 mGycm COMPARISON: none FINDINGS: Average sized liver showing homogenous parenchymal attenuation with fatty changes. No dilated intra or extra-hepatic biliary tracts. Cholecystectomy clips Normal appearance of the pancreas with clear surrounding fat planes. The spleen, adrenal glands and IVC are unremarkable. Mild Vascular atheromatous calcifications. Both kidneys are of average size and showing smooth outline with preserved parenchymal thickness. Urinary contrast excretion is noted. No hydronephrosis. Mild perinephric fat stranding. Under distension of the urinary bladder. No obvious masses related to the hysterectomy stump. Left side pelvic 4.5 x 3.5 cm hypodense cyst, possibly of adnexal origin. Advise sonography correlation. The examined ascending colon, the transverse colon, the descending colon & small bowel loops are unremarkable. Moderate sized hiatus hernia. Otherwise, the stomach is unremarkable. No ascites or free air. No obvious pathologically enlarged lymph nodes. Scanned osseous structures show no osseous destruction. Scanned lung bases show no obvious abnormalities. CT/Abdomen/Pelvis WITH Contrast IMPRESSION: Moderate sized hiatus hernia. Left side pelvic 4.5 x 3.5 cm hypodense cyst, possibly of adnexal origin. Advis e sonography correlation. No acute pelvi-abdominal abnormalities, collections or free air. Reading [facility]
== END | disposition home or self-care (01) ==
LOC: CT 06:23
PROVIDERS: PCP Family Medicine; Referring Provider Internal Medicine Gastroenterology; Visit Provider Internal Medicine Gastroenterology
DX: R19.7 Diarrhea, unspecified (principal); R10.9 Unspecified abdominal pain
CPT/HCPCS: 74177; Q9967; A4216